=== PATIENT | male | born 1970 | race Caucasian/White ===

== ENCOUNTER 2023-10-27 14:26 | Outpatient (OUT) | payer OTHER, SELFPAY ==
--- NOTE | 2023-10-27 14:31 | ECG_ITS ---
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
--- NOTE | 2023-10-27 15:05 | P.GSHP_ITS ---
History of Present Illness History of Present Illness Chief complaint: hematuria, bladder stone Narrative: Patient present for preadmission testing and coming by his . The patient states he had hematuria on a urine screen for work. He states he has a history of kidney stones. The patient reports he had a cystoscopy done in the office and he had intolerable pain with the procedure. He denies any urinary symptoms at this time. Review of Systems ROS Narrative REVIEW OF SYSTEMS: Negative except as stated in HPI, ten or more systems reviewed. Constitutional: No fever , chills, weakness ENT: No sore throat or epistaxis Cardiovascular: No edema, chest pain, palpitations, or activity intolerance Respiratory: No shortness of breath, cough, or wheezing Musculoskeletal: No joint pain or swelling Gastrointestinal: No abdominal pain, constipation, diarrhea, or vomiting Neurological: No numbness, tingling, weakness, or headache Psychiatric: No mood changes PFSH PFS Medical History (Updated 10/27/23 @ 14:50 by Sanjuana Allison NP) Bladder stone ?N21.0 - Calculus in bladder (ICD-10) Depression ?F32.A - Depression, unspecified (ICD-10) Diabetes ?E11.9 - Type 2 diabetes mellitus without complications (ICD-10) Hematuria ?R31.9 - Hematuria, unspecified (ICD-10) High cholesterol ?E78.00 - Pure hypercholesterolemia, unspecified (ICD-10) Hydronephrosis ?N13.30 - Unspecified hydronephrosis (ICD-10) Hydroureter ?N13.4 - Hydroureter (ICD-10) Hyperlipidemia ?E78.5 - Hyperlipidemia, unspecified (ICD-10) Kidney stones ?N20.0 - Calculus of kidney (ICD-10) Renal cyst ?N28.1 - Cyst of kidney, acquired (ICD-10) S/P extracorporeal shock wave therapy ?Z98.890 - Other specified postprocedural states (ICD-10) Sleep apnea ?G47.30 - Sleep apnea, unspecified (ICD-10) 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 - Complete traumatic metacarpophalangeal amputation of unspecified finger, initial encounter (ICD-10) Surgical History (Updated 10/27/23 @ 14:19 by Sanjuana Allison NP) H/O eye surgery ?Z98.890 - Other specified postprocedural states (ICD-10) H/O hand surgery ?Z98.890 - Other specified postprocedural states (ICD-10) H/O knee surgery ?Z98.890 - Other specified postprocedural states (ICD-10) H/O wisdom tooth extraction ?K08.409 - Partial loss of teeth, unspecified cause, unspecified class (ICD- 10) Family History (Updated 10/27/23 @ 14:50 by Sanjuana Allison NP) Other Family history of myocardial infarction Social History (Updated 10/27/23 @ 14:46 by Sanjuana Allison NP) Within the past year, how often did you have a drink containing alcohol: 2-4 times a month Smoking status: Former smoker Do you use any of these nicotine containing products: smokeless tobacco Smokeless tobacco user: chewing tobacco Non-prescribed substance use: denies use 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 Highest level of school completed/degree received: high school graduate Meds Home Medications and Allergies Home Medications Medication Instructions Recorded Confirmed Type atorvastatin 20 mg tablet 20 mg PO DAILY 10/27/23 10/27/23 History bupropion HCl 150 mg 24 hr tablet, 150 mg PO DAILY 10/27/23 10/27/23 History extended release citalopram 40 mg tablet (Celexa) 40 mg PO DAILY 10/27/23 10/27/23 History coenzyme Q10 10 mg capsule (Co 10 mg PO TID 10/27/23 10/27/23 History Q-10) fenofibrate 120 mg tablet 120 mg PO DAILY 10/27/23 10/27/23 History multivitamin (Daily Multi-Vitamin 1 tab PO DAILY 10/27/23 10/27/23 History tablet) omega-3 fatty acids 500 mg PO DAILY 10/27/23 10/27/23 History Allergies Allergy/AdvReac Type Severity Reaction Status Date / Time No Known Drug Allergies Allergy Verified 10/27/23 14:42 Exam Narrative Exam Narrative: Constitutional: Awake, alert, comfortable, well-appearing, nontoxic, interactive, vital signs as charted Head: Normocephalic, atraumatic Neck: Supple, normal appearance, normal range of motion, no meningeal signs, no lymphadenopathy Respiratory: No respiratory distress, breath sounds clear Cardiovascular: Regular rate and rhythm, strong and regular heart tones Abdomen: Nontender, normal bowel sounds, soft, no CVA tenderness Musculoskeletal: Normal gait, no swelling or edema Skin: No rashes or induration, no lesions, only visible skin inspected Neuro: No neurological deficits, normal sensation Psychiatric: Oriented ?3, normal affect Assessment and Plan Assessment and Plan (1) Bladder stone: (2) Hematuria: Plan Cystoscopy, litholapaxy, shock pulse, possible TURBT scheduled with Dr. Scanlon 11/03/2023.
[2023-10-27 15:18] LABS: Basophils Percent Auto 0.8 % (0.2-2.0); Eosinophils Absolute Auto 0.2 10^3/uL (0.0-0.7); Hematocrit 40.9 % (42.0-54.0); Hemoglobin 13.7 g/dL (14.0-18.0); Lymphocytes Absolute Auto 2.1 10^3/uL (1.2-3.8); Lymphocytes Percent Auto 42.5 % (20.5-60.0); Mean Corpuscular HGB Conc 33.5 g/dL (29.9-35.2); Mean Corpuscular Hemoglobin 28.1 pg (25.9-34.0); Mean Corpuscular Volume 83.8 fL (80.0-94.0); Mean Platelet Volume 10.4 fL (9.5-13.5); Monocytes Absolute Auto 0.5 10^3/uL (0.3-0.8); Monocytes Percent Auto 9.4 % (1.7-12.0); Neutrophils Absolute Auto 2.2 10^3/uL (1.4-6.5); Neutrophils Percent Auto 44.3 % (43.0-75.0); Platelet Count 251 10^3/uL (150-450); Red Blood Count 4.88 10^6/uL (4.70-6.10); Red Cell Distribution Width 12.5 % (11.0-15.0)
[2023-10-27 15:38] LABS: Anion Gap 12.1; BUN Creatinine Ratio 14.8; Calcium 9.3 mg/dL (8.5-10.1); Carbon Dioxide 28.1 mmol/L (21.0-32.0); Chloride 105 mmol/L (98-107); Estimated GFR (African America >60 (>=60); Estimated GFR (Non-African Ame >60 (>=60); Glucose 123 mg/dL (74-106); Partial Thromboplastin Time 25.4 sec (22.3-36.2); Potassium 4.2 mmol/L (3.5-5.1); Prothrombin Time 10.6 sec (9.0-11.6); Sodium 141 mmol/L (136-145)
== END 2023-10-27 14:27 | disposition home or self-care (01) ==
PROVIDERS: PCP Urology; Visit Provider Urology
DX: Z01.810 Encounter for preprocedural cardiovascular examination (principal); Z01.812 Encounter for preprocedural laboratory examination; R31.9 Hematuria, unspecified; N21.0 Calculus in bladder
CPT/HCPCS: 80048; 85025; 85610; 85730; 93005; G0463

== ENCOUNTER 2023-11-03 08:36 | Day surgery (SDC) | payer OTHER, SELFPAY ==
[2023-10-27 15:01] VITALS: BP 131/76; PULSE 87; RESP 18; TEMP 36.6; O2SAT 98; BMI 31.7
[2023-11-03] VITALS (7 sets, daily range): BP systolic 131–141; BP diastolic 74–91; PULSE 70–86; RESP 12–18; TEMP 36.1; O2SAT 93–97; BMI 31.4
--- NOTE | 2023-11-03 | FL_ITS ---
[address] [address] Patient Name: BOBBI MUELLER MRN: [id number] date: 1970 Sex: M Assigned Patient Location: [facility] Current Patient Location: Accession/Order Number: [id number] Exam Date: 11/03/2023 10:55 Report Date: 11/07/2023 09:19 At the request of: LUI STEVENSON Procedure: FL fluoroscopy <1hr NON-READ EXAM: FL fluoroscopy <1hr NON-READ HISTORY: Rt Bladder Stone TECHNIQUE: FINDINGS: Please see Operative Report. Electronically authenticated by: RADIOLOGIST NO Date: 11/07/2023 09:19
[2023-11-03] MEDS: LACTATED RINGER'S SOLUTION 1,000 ML 50 ML IV (09:07)
[2023-11-03] MEDS: CEFAZOLIN SODIUM/DEXTROSE,ISO 1 GM/50 ML IV.SOLN IV (10:10)
--- NOTE | 2023-11-03 11:38 | PM.URSON ---
Urology Surgery Operative Note Operative Note Procedure Date: 11/03/23 Time Out Performed: yes Pre-op Diagnosis: #1. Bladder stone. #2. Gross hematuria. #3. Right nephrolithiasis Post-op Diagnosis: same as pre-op Procedures performed: #1. Urethral meatal dilation with Violeta sounds to 24 [place]. #2. Cystoscopy. #3. Cystolitholapaxy using the Thulium laser. #4. Right rigid ureteral dilation. #5. Right ureteroscopy. #6. Placement of 6 [place] variable length right ureteral stent Anesthesia: GREGG Primary Surgeon: Negro Scanlon Complications: none Estimated blood loss (mL): 10 Findings: #1. Large bladder stone. #2. No bladder tumors. #3. 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 Drains: 6 [place] variable length right ureteral stent Detailed description of Procedure: The patient was brought to the operating room and placed on the operating room table in the supine position. SCDs were placed on the lower extremities and turned on and functioning during the entire case. Timeout was done by all parties in the room. We all agreed upon the patient's identification and the planned procedures for this patient. Genn. anesthesia was then administered. The patient was then repositioned into the modified dorsal lithotomy position. All pressure points were satisfactorily padded. Genitalia were sterilely prepped and draped in usual fashion.I started by attempting to pass a 22 [place] Olympus cystoscope per urethra but was unable due to the meatal stenosis. I then used [place] sounds and dilated him up to 24 [place]. I then passed the cystoscope. The anterior urethra was normal. The prostatic urethra showed a high median lobe. There was lateral lobe hypertrophy. Panendoscopy in the bladder showed a large bladder stone on the floor. No evidence of any bladder tumors were noted. I then passed the 1000 ? thulium laser fiber through the scope. I then made contact with the stone and began doing laser lithotripsy at 20 and 30 then 50 and ultimately 60 W continuously. I used the dusting modality for the majority of the stone. Once I had the stone down to very tiny pieces I then stopped lasering and used the ellick evacuator to get all the pieces out. Upon completion of the cystolitholapaxy, there was no evidence of bleeding from the bladder. At this time I then passed a wire through the scope and guided up the right ureter and into the kidney. I then used an 8 and 10 [place] rigid dilator to dilate the distal ureter which was stenosed. I then removed the scope and passed an 10/10 ureteral access sheath over the wire and this kept buckling at the distal ureter region. Ultimately I had to swap out wires to a sensor wire and then I was able to get the access sheath over this and up to the L5 level. The stylette and wire were then removed. I then passed a flexible ureteroscope through the access sheath and into the ureter. I then slowly ascended up the ureter and as I arrived at the L3 region one could see a narrowing although it was not a scarred stricture. Numerous manipulation attempts were done but these were all to no avail. I was not able to get the scope through this narrowed area safely. I therefore removed the scope and then removed the access sheath. I then backloaded the cystoscope over the wire and passed it into the bladder. I then slid a 6 [place] variable length ureteral stent over the wire up into the kidney. The wire was removed and there were good curls in the kidney and in the bladder. The bladder was drained of its contents and the scope was then removed. The anesthetic was then reversed. [facility]U in stable condition. Our plan will be to bring him back in a few weeks and then attempt to get the flexible ureteroscope all the way up the ureter and into the kidney so we can do laser lithotripsy of the right renal stones.
[2023-11-03] MEDS: SOLIFENACIN SUCCINATE 10 MG TABLET PO (12:09)
[2023-11-03] MEDS: ACETAMINOPHEN 325 MG TABLET 650 MG PO (12:35)
--- NOTE | 2023-11-03 12:37 | PC.NURSE ---
pATIENT COMPLAINING OF HEADACHE. TYLENOL GIVEN 650 MG FOR A PAIN OF 4
[2023-11-15 03:07] LABS: Calcium Oxalate Dihydrate 90 % (.); Calcium Oxalate Monohydrate 5 % (.); Calcium phosphate (hydroxyl) 5 % (.); Size 5x5 mm (.)
== END 2023-11-03 12:50 | disposition home or self-care (01) ==
PROVIDERS: PCP Urology; Visit Provider Urology
PROC: (CPT 910; principal; 2023-11-03 09:45)
DX: N21.0 Calculus in bladder (principal); R31.0 Gross hematuria; G47.30 Sleep apnea, unspecified; F32.A Depression, unspecified; E11.9 Type 2 diabetes mellitus without complications; N20.0 Calculus of kidney; Q62.10 Congenital occlusion of ureter, unspecified; Z87.891 Personal history of nicotine dependence; E78.2 Mixed hyperlipidemia; N28.1 Cyst of kidney, acquired; Z87.442 Personal history of urinary calculi; R31.21 Asymptomatic microscopic hematuria
CPT/HCPCS: 52318; 52332; 52351; 36415; 76000; 82365; 84703; 99999; J2704

== ENCOUNTER 2023-12-02 13:23 | Outpatient (OUT) | payer OTHER, SELFPAY ==
--- OUTSIDE RECORDS SUMMARY | 2023-12-02 13:29 | XMS_ITS | CCD ---
Author Name Unknown Address [address] [place] [address] Organization [facility] Care Team Providers Care Fitness Plan Coordinator Name Role Phone Henfling Frieda LIMON Primary Care Provider [phone] KISHA, DR PINO Primary Care Unavailable ELVA, DR POE Admitting Unavailable ELVA, DR POE Consulting Unavailable ELVA, DR POE Attending Unavailable BRINA, DR EMMA Vang Consulting Unavailable Henjayleneing Frieda LIMON Primary Care Provider [phone] Henjayleneing Frieda LIMON Primary Care Provider [phone] Mckinley John Unavailable LON, FRIEDA N Primary Care Physician [phone] DEJA VEE Attending Unavailable HENFLING, FRIEDA N Referring Unavailable HENFLING, FRIEDA N Primary Care Unavailable HENFLING, FRIEDA N Referring Unavailable HENFLING, FRIEDA N Primary Care Unavailable HENFLING, FRIEDA N Attending Unavailable HENFLING, FRIEDA N Referring Unavailable HENFLING, FRIEDA N Primary Care Unavailable HENFLING, FRIEDA N Attending Unavailable HENFLING, FRIEDA N Primary Care Unavailable DEJA VEE Referring Unavailable HENFLING, FRIEDA N Primary Care Unavailable Henfling, BRAXTON Langston Primary Care Provider JORGE Allison Attending Provider Unavail able BRAXTON Forrest N Primary Care Provider [phone] MD Negro Scanlon Attending Provider Sanjuana Allison Attending Unavailable Sanjuana Allison Admitting Unavailable Henfling, Frieda N Primary Care Unavailable Scanlon, Negro Admitting Unavailable Henfling, Frieda N Primary Care Unavailable Scanlon, Negro Attending Unavailable SCANLON, Negro R Referring Unavailable HENFLING, FRIEDA Primary Care Unavailable SCANLON, Negro R Attending Unavailable SCANLON, Negro R Attending Unavailable HENFLING, FRIEDA Primary Care Unavailable SCANLON, Negro R Attending Unavailable HENFLING, FRIEDA Primary Care Unavailable SCANLON, Negro R Attending Unavailable SCANLON, Negro R Admitting Unavailable HENFLING, FRIEDA Primary Care Unavailable SCANLON, Negro R Attending Unavailable HENFLING, FRIEDA Primary Care Unavailable SCANLON, Negro R Attending Unavailable HENFLING, FRIEDA Primary Care Unavailable SCANLON, Negro R Attending Unavailable HENFLING, FRIEDA Primary Care Unavailable Allergies Allergy Classification Reported Allergen(s) Allergy Type Date of Onset Reaction(s) Facility (1 source) No Known Medication Allergies; Translations: [No Known Medication Allergies] Propensity to adverse reactions (disorder) [facility] Repository Medications Current Medications Medication Drug Class(es) Dates Sig (Normalized) Sig (Original) acetaminophen 325 mg / HYDROcodone bitartrate 5 mg oral tablet (4 sources) Opioid Agonist Start: 05-08-2022 take 1 tablet by mouth twice daily Hydrocodone-Aceta minophen Active 1 TAB PO Twice daily 6 3 May 08, 2022 Start: 01-13-2019 End: 01-15-2019 take 1 tablet by mouth every four to six hours Hydrocodone-Acetaminophen (Lagrange) 5-325 mg Tablet Discontinued 1 TAB PO EVERY 4-6 HOURS 7 2 January 13, 2019 January 15, 2019 12:01am atorvastatin 20 mg oral tablet (20 sources) HMG-CoA Reductase Inhibitor Start: 01-13-2019 End: 06-14-2024 take 20 mg by mouth once daily Atorvastatin Active 20 MG PO Daily January 13, 2019 12:00am Comment on above: Take 1 tablet by joshua th once daily. citalopram 40 mg oral tablet (20 sources) Serotonin Reuptake Inhibitor Start: 01-13-2019 End: 06-15-2023 take 40 mg by mouth once daily Citalopram Active 40 MG PO Daily January 13, 2019 12:00am take 1 tablet by joshua th every twenty-four hours Citalopram Hydrobromide 20 MG 1 tablet Orally Once a day for 30 day(s) Active Comment on above: Take 1 tablet by joshua th once daily. cyclobenzaprine hydrochloride 10 mg oral tablet (6 sources) Muscle Relaxant Start: 05-17-20 take 1 tablet by mouth every eight hours as needed Cyclobenzaprine HCl 10 MG 1 tablet as needed Orally every 8 hours as needed for 5 days Apr, Active cyclobenzaprine (FLEXERIL) 10 mg tablet Take by mouth three times daily. 0 Active Comment on above: Take by mouth three times daily. fenofibrate 145 mg oral tablet (20 sources) Peroxisome Proliferator Receptor alpha Agonist Start: 01-13-20 End: 06-15-20 take 145 mg by mouth once daily Fenofibrate Nanocrystallized Active 145 MG PO Daily January 13, 2019 12:00am Comment on above: Take 1 tablet by joshua th once daily. TAKE 1 TABLET DAILY Multi Vitamin+ (2 sources) Start: 05-13-20 Multi Vitamin+ Refill(s) 0 Start Date: 05/13/22 Status: Ordered Jybcqtwz-Myz-Awbzh- Vit K-Lycop (One-A-Day Men's Multivitamin) 400-20-300 mcg Tablet (2 sources) Start: 05-08-20 take 1 tablet by mouth once daily Pjzpciiv-Eem-Zipfs-Vit K-Lycop (One-A-Day Men's Multivitamin) 400-20-300 mcg Tablet Active 1 TAB PO Daily May 07, 2022 11:00pm naproxen 500 mg oral tablet (2 sources) Nonsteroidal Anti-inflammatory Drug Start: 05-08-20 take 1 tablet by mouth twice daily Naproxen (Naprosyn) 500 mg tablet Active 500 MG PO Twice daily 14 7 May 07, 2022 11:00pm [place] 4-Gqc-Mve-Fish Oil (Fish Oil) 1,000 mg (120 mg-180 mg) Capsule (2 sources) Start: 05-08-20 take 1 capsule by mouth twice daily [place] 8-Dtz-Bcu-Fish Oil (Fish Oil) 1,000 mg (120 mg-180 mg) Capsule Active 1 CAP PO Twice daily May 07, 2022 11:00pm [place]-3 (2 sources) Start: 05-13-20 [place]-3 Refill(s) 0 Start Date: 05/13/22 Status: Ordered ondansetron 4 mg oral tablet (4 sources) Serotonin-3 Receptor Antagonist Start: 05-08-20 take 4 mg by mouth every eight hours Ondansetron Hcl Active 4 MG PO Q8H 15 May 08, 2022 6:52am Start: 01-13-2019 End: 05-08-2022 Ondansetron Discontinued 4 M G PO every 6 to 8 hours January 13, 2019 12:00am May 08, 2022 6:22am pravastatin sodium 10 mg oral tablet (2 sources) HMG-CoA Reductase Inhibitor take 1 tablet by mouth once daily Pravastatin 10 mg one tab orally daily Active predniSONE 20 mg oral tablet (4 sources) Start: 05-17-2023 take 1 tablet by mouth every twelve hours predniSONE 20 MG 1 tablet Orally twice a day for 6 days Apr, Active End: 06-15-2023 take 2 tablets by mouth twice daily predniSONE (DELTASONE) 10 mg tablet Take 20 mg by mouth twice daily. 0 06/15/2023 Discontinued Comment on above: Take 20 mg by mouth twice daily. tamsulosin hydrochloride 0.4 mg oral capsule (2 sources) alpha-Adrenergic Kimberly Start: 05-08-2022 take 1 capsule by mouth once daily Tamsulosin (Flomax) 0.4 mg capsule Active 0.4 MG PO Daily May 07, 2022 11:00pm Vit W-Qvllkda-Vkze-Rutin-Hb 196 (Bioflex) 834-91-31-40 mg Tablet (2 sources) Start: 01-13-2019 take 1 tablet by mouth once daily Vit D-Zgewpby-Bhpc-Yanci n-Hb196 (Bioflex) 217-71-71-40 mg Tablet Active 1 TAB PO Daily January 13, 2019 12:00am Completed/Discontinued Medications Medication Drug Class(es) Dates Sig (Normalized) Sig (Original) 24 hr buPROPion hydrochloride 150 mg extended release oral tablet (20 sources) Aminoketone Start: 05-13-2022 take 1 mg by mouth twice daily buPROPion 150 mg ER Tab mg tab(s), Oral, BID, Refills(s) 0 Start Date: 05/13/22 Status: Ordered Start: 01-13-2019 End: 06-15-2023 take 150 mg by mouth once daily Bupropion Hcl Active 1 50 MG PO Daily January 13, 2019 12:00am Comment on above: TAKE 1 TABLET EVERY MORNING Take 1 tablet by joshua th every morning. ciprofloxacin 500 mg oral tablet (2 sources) Quinolone Antimicrobial Start: 2022 Cipro 500 mg Tab 500 mg = 1 tab(s), Oral, As Directed, Patient to take 1 tab the day before procedure and the 2nd tab the day of procedure once completed, # 2 tab(s), Refills(s) 0, Pharmacy: [id number], 188, cm, 08/22/23 15:16:00 EDT, Height/Length Dosing,... Start Date: 08/22/23 Status: Ordered doxycycline monohydrate 100 mg oral capsule (2 sources) Tetracycline-class Drug Start: 2018 End: 2021 take 100 mg by mouth twice daily Doxycycline Monohydrate Discontinued 100 MG PO Twice daily January 13, 2019 12:00am May 08, 2022 6:21am icosapent ethyl 1000 mg oral capsule (2 sources) Start: 2018 End: 2021 Icosapent Ethyl (Vascepa) 1 gram capsule Discontinued 2 GM PO Twice daily January 13, 2019 12:00am May 08, 2022 6:22am iv contrast (will be provided with radiology test) (1 source) Start: 2022 End: 2022 iv contrast (will be provided with radiology test) CT Urogram WO/W Inject, intravenously, once for 1 dose.No IV access, insert saline lock prior to the beginning of sedation, infusion, injection of imaging exam. Discontinue saline lock post exam. If Pt. has a central line or IVAD, may access for administration according to line specific nursing protocol. Once exam is complete flush line and de-access according to line specific nursing protocol in the CT contrast administration guidelines link. 1 Each 0 06/16/2023 06/17/2023 Comment on above: CT Urogram WO/W Inje ct, intravenously, once for 1 dose.No IV access, insert saline lock prior to the beginning of sedation, infusion, injection of imaging exam. Discontinue saline lock post exam. If Pt. has a central line or IVAD, may access for administration according to line specific nursing protocol. Once exam is complete flush line and de-access according to line specific nursing protocol in the CT contrast administration guidelines link. aatvgqbt-dvl-LJ-K-ly copene 400-20-370 mcg tab (14 sources) nttfgddl-xxd-XS- K-ly copene 400-20-370 mcg tab Take by mouth once daily. 0 Active Comment on above: Take by mouth once d aily. Qbjdefhh-Ctv-Ezrwgie Fumarate (Multi Vitamin) 9 mg iron/15 mL Liquid (2 sources) Start: 2018 End: 2021 take 1 tablet by mouth once daily Qmpfagxf-Xcc-Sitrbaw Fumarate (Multi Vitamin) 9 mg iron/15 mL Liquid Discontinued 1 TAB PO Daily January 13, 2019 12:00am May 08, 2022 6:21am omega-3 fatty acids 1,000 mg cap (14 sources) Start: 2019 take 2 capsules by mouth once daily omega-3 fatty acids 1,000 mg cap Take 2 capsules by mouth once daily. 0 03/24/2020 Active Comment on above: Take 2 capsules by m outh once daily. 1000 ml sodium chloride 9 mg/ml injection (1 source) Start: 2022 End: 2022 inject 1 dose intravenously once 0.9 % sodium chloride (NACL 0.9%) infusion Inject 5-30 mL/hr intravenously one time only for 1 dose. Administer at rate defined per CT contrast administration specifications. To be provided with radiology test. 1 Each 0 06/16/2023 06/16/2023 Comment on above: Inject 5-30 mL/hr in travenously one time only for 1 dose. Administer at rate defined per CT contrast administration specifications. To be provided with radiology test. vit L-vkxlwtb-qztv-rutin -hb196 (BIOFLEX) 380-24-62-40 mg tab (7 sources) vit H-zosnhcl-nmjd-rutin -hb196 (BIOFLEX) 797-78-23-40 mg tab Take by mouth once daily. 0 Active Comment on above: Take by mouth once d aily. vit E-aazvzyf-cwrc-rutin -hb196 781-39-17-40 mg tab (7 sources) vit N-rcvauqm-uznj-rutin -hb196 529-74-88-40 mg tab Take by mouth once daily. 0 Active Comment on above: Take by mouth once d aily. Problems Problem Classification Problem Date Documented Date Episodic/Chronic Calculus of urinary tract (20 sources) Calculus of kidney; Translations: [Calculus in urethra] Onset: 05-14-2022 Episodic Diabetes mellitus without complication (9 sources) Type 2 diabetes mellitus without complication; Translations: [Type 2 diabetes mellitus without complications] Onset: 09-13-2022 Chronic Diabetes mellitus without complication (1 source) Impaired fasting glycemia; Translations: [Impaired fasting glucose] Episodic Disorders of lipid metabolism (18 sources) Mixed hyperlipidemia; Translations: [Mixed hyperlipidemia] Onset: 12-30-2016 12-30-2016 Chronic Genitourinary symptoms and ill-defined conditions (5 sources) Poor stream of urine; Translations: [Poor urinary stream] Onset: 06-15-2023 Episodic Immunizations and screening for infectious disease (1 source) Vaccination needed; Translations: [Encounter for immunization] 06-15-2023 Episodic Mood disorders (16 sources) Depressive disorder; Translations: [Depression] Onset: 05-11-2018 05-11-2018 Chronic Other diseases of kidney and ureters (1 source) Acquired renal cyst without neoplastic change; Translations: [Cyst of kidney, acquired] Onset: 08-22-2023 Episodic Other diseases of kidney and ureters (2 sources) Cyst of kidney 08-22-2023 Episodic Other diseases of kidney and ureters (6 sources) Hydronephrosis; Translations: [Unspecified hydronephrosis] 05-13-2022 Episodic Other diseases of kidney and ureters (2 sources) Hydroureter 05-13-2022 Episodic Other screening for suspected conditions (not mental disorders or infectious disease) (1 source) Encounter for screening for malignant neoplasm of prostate; Translations: [Screening for malignant neoplasm done] Onset: 08-22-2023 Episodic Residual codes; unclassified (16 sources) Obstructive sleep apnea syndrome; Translations: [Obstructive sleep apnea (adult) (pediatric)] Onset: 03-24-2020 03-24-2020 Chronic Spondylosis; intervertebral disc disorders; other back problems (4 sources) Sciatica; Translations: [Sciatica, right side] Episodic Sprains and strains (3 sources) Sprain of ankle; Translations: [Sprain of ankle, left] Episodic Unclassified (2 sources) Asymptomatic microscopic hematuria 09-25-2023 Unclassified (2 sources) Patient encounter status 08-22-2023 Unclassified (1 source) Encounter for other preprocedural examination; Translations: [Encounter for other preprocedural examination] Onset: 10-25-2023 Unclassified (1 source) Asymptomatic microscopic hematuria; Translations: [Asymptomatic microscopic hematuria] Onset: 09-05-2023 Results Test Name Value Interpretation Reference Range Facility Consent for Procedure/Surger yon 11-25-2023 Consent for Procedure/Surgery [id number]#1.00TIFF Normal [facility] Lab Reportson 11-22-2023 Lab Reports [id number]#1.00TIFF Normal [facility] RAD - MISCon 11-08-2023 RAD - MISC [id number]#1.00TIFF Normal [facility] Operative Reporton Operative Report [id number]#1.00TIFF Normal [facility] ECG 12-Leadon 10-28-2023 ECG 12-Lead [id number]#1.00TIFF Normal [facility] Lab Reportson 10-28-2023 Lab Reports [id number]#1.00TIFF Normal [facility] COVID-19 FRon 10-25-2023 SARS-CoV-2 (COVID-19) RNA RUDY+probe Ql (Unsp spec) Negative Normal Negative [facility] Comment on above: Order Comment: Healt hcare Worker?: N Result Comment: Testing for SARS-CoV-2 by RT-PCR This test was developed and its performance characteristics determined by [employer]) and validated at the [facility]. This test has not been FDA cleared or approved. This test has been authorized by FDA under an Emergency Use Authorization (EUA). This test has been validated in accordance with the FDA's Guidance Document (Policy for Diagnostics Testing in Laboratories Certified to Perform High Complexity Testing under CLIA prior to Emergency Use Authorization for Coronavirus Disease-2019 during the Public Health Emergency) issued on February 28, 2020. This test is only authorized for the duration of time the declaration that circumstances exist justifying the authorization of the emergency use of in vitro diagnostic tests for detection of SARS-CoV-2 virus and/or diagnosis of COVID-19 infection under section 564(b)(1) of the Act, 21 U.S.C. 360bbb-3(b)(1), unless the authorization is terminated or revoked sooner. PERFORMED BY: [place] [address] PATHOLOGIST [employer] MARSHAL EDWARD M.D. Performed By: #### C OVID 19 [facility] [place] #### [address] COVID-19 Positive/NegativeOr dered By: Sanjuana Allison on 10-25-2023 SARS-CoV-2 (COVID-19) N gene RUDY+probe Ql (Resp) Negative Negative [facility] Comment on above: Testing for SARS-CoV -2 by RT-PCRThis test was developed and its performance characteristics determined by [employer] ([employer]) and validated at the [facility]. This test has not been FDA cleared or approved. This test has been authorized by FDA under an Emergency Use Authorization (EUA). This test has been validated in accordance with the FDA's Guidance Document (Policy for Diagnostics Testing in Laboratories Certified to Perform High Complexity Testing under CLIA prior to Emergency Use Authorization for Coronavirus Disease-2019 during the Public Health Emergency) issued on February 28, 2020. This test is only authorized for the duration of time the declaration that circumstances exist justifying the authorization of the emergency use of in vitro diagnostic tests for detection of SARS-CoV-2 virus and/or diagnosis of COVID-19 infection under section 564(b)(1) of the Act, 21 U.S.C. 360bbb-3(b)(1), unless the authorization is terminated or revoked sooner. Laboratory - Microbiology an d Antimicrobial susceptibilityOrdered By: Sanjuana Allison on 10-25-2023 SARS-CoV-2 (COVID-19) RNA RUDY+probe Ql (Unsp spec) N/A [facility] Consent for Procedure/Surger yon 09-22-2023 Consent for Procedure/Surgery [id number]#1.00TIFF Normal [facility] Operative Reporton Operative Report [id number]#1.00TIFF Normal [facility] RAD - CT Reporton 09-07-2023 RAD - CT Report [id number]#1.00TIFF Normal [facility] CT abdomen pelvis wo/w conon 09-05-2023 CT abdomen pelvis wo/w con [facility] [place] [address] CT Scan Report Signed Patient: Bobbi Garrison MR#: [id number] : 1970 Acct:[id number] Age/Sex: 53 / M ADM Date: 08/22/23 Loc: CT Room: Type: PRE CLI Attending Dr: Negro Scanlon MD Copies to: Negro Scanlon MD Ordering Provider: Negro Scanlon MD Date of Service: 09/05/23 CT/CT abdomen pelvis wo/w con: R31.21 CT ABDOMEN AND PELVIS WITH AND WITHOUT INTRAVENOUS CONTRAST: CLINICAL HISTORY: Microhematuria. COMPARISON: CT abdomen and pelvis 05/08/2022 TECHNIQUE: Spiral images were obtained through the abdomen and pelvis before and after the administration of intravenous contrast. This CT exam was performed using one or more following dose reduction techniques: Automated exposure control, adjustment of the mA and/or kV according to patient size, or use of iterative reconstruction technique. FINDINGS: Lung Bases: [No acute findings.] Organs:Hepatic steatosis. Gallbladder spleen pancreas and adrenal glands all appear unremarkable. Subcentimeter low attenuating lesions right kidney, too small for accurate characterization. Right nephrolithiasis, largest stone measuring 3 mm. Left kidney appears unremarkable. No enhancing renal or collecting system mass. No obstructive uropathy. Abdominal aorta appears normal in caliber.[ GI: Stomach is grossly unremarkable. Small bowel appears nondilated. Colonic diverticulosis.[Appendix is normal. Pelvis:[Urinary bladder calculus measuring 15 mm in greatest axial dimension. No urinary bladder mass. Prostatomegaly. Left-sided fat filled inguinal hernia.] Peritoneum/Retroperitoneum :No free air, free fluid or lymphadenopathy.[ Abd wall/Bones:Abdominal wall demonstrates no acute findings. Osseous structures demonstrate degenerative change.[ CT/CT abdomen pelvis wo/w con IMPRESSION: Right nephrolithiasis, largest measuring 3 mm. Urinary bladder calculus measuring 15 mm. No obstructive uropathy or enhancing mass. Impression dictated by: Beck Crump Jr., D.OMargie09/05/2023 6:01 PM Dictation Location: [facility]-15 Transcribed By: SHEREEN 09/05/231800 Dictated By: Beck Crump Jr, DO 09/05/23 1756 Signed By: 09/05/231800 [facility] Leslye 08-30-2023 CNPN Telephone ([employer]) -- BOBBI GARRISON ([id number]) 1970 M Date Time Provider Department 08/30/23 [facility] [place] [facility] During your visit today, we recorded the following information about you: Sherman Aggarwal MA 08/30/2023 9:32 AM Signed Received Urine reports from [facility]. Placed in pcp inbox for review. Sherman Aggarwal MA August 30, 2023 9:32 AM Allergies As of Date: 08/30/2023 (No Known Allergies) Date Reviewed: 06/15/2023 Reviewed by: Stacey Cruz MA - Fully Assessed Reason for Visit: Results [95] Cmt: Urine cytology report Prescriptions as of 08/30/2023 - fenofibrate nanocrystallized (TRICOR) 145 mg tablet Take 1 tablet by mouth once daily. - atorvastatin (LIPITOR) 20 mg tablet Take 1 tablet by mouth once daily. - buPROPion XL (WELLBUTRIN XL) 150 mg 24 hr tablet Take 1 tablet by mouth every morning. - citalopram (CELEXA) 40 mg tablet Take 1 tablet by mouth once daily. - cyclobenzaprine (FLEXERIL) 10 mg tablet Take by mouth three times daily. - omega-3 fatty acids 1,000 mg cap Take 2 capsules by mouth once daily. - lorxhzao-agr-HR-K-lycopene 400-20-370 mcg tab Take by mouth once daily. - vit X-isindoc-udwr-rutin-hb196 543-79-22-40 mg tab Take by mouth once daily. Problem List As Of Date 08/30/2023 Noted Resolved Mixed hyperlipidemia [E78.2] 12/30/2016 Depression [F32.A] 05/11/2018 ISAK (obstructive sleep apnea) [G47.33] 03/24/2020 Encounter Status:Closed by SHERMAN AGGARWAL on 08/30/23 Normal [facility] Urine Cytology ( Labs)on Urine Cytology Diagnosis Info Invalid Interpretation Code [facility] Comment on above: Result Comment: A:Ur ine,Urine:Voided Interpretation - MicroScopic Description - Adequacy - Gross Description Site ID:A color Yellow fixative Alcohol Specimen designated Urine received in alcohol preservative and labeled with the patient?s name, consists of 110ml clear yellow fluid. Electronically signed by : on: 08/29/2023 14:28:36 Performed By: #### 1 [id number] ####[facility] [address] [place] [address] Pre-Certification Formon Pre-Certification Form [id number]:127 Normal [facility] Consent for Procedure/Surger yon 08-25-2023 Consent for Procedure/Surgery [id number]#[id number]:127 Normal [facility] Physician Referralon 023 Physician Referral [id number]#[id number]:127 Normal [facility] Ambulatory Visit Summaryon 0 08-22-2023 Ambulatory Visit Summary BOBBI GARRISON :1970 Visit Date:08/22/2023 Ambulatory Visit Instructions Your Diagnosis Kidney stones Asymptomatic microscopic hematuria Screening PSA (prostate specific antigen) Tests Performed Urnls Dip Stick Auto w/o Microscopy POC [address] CT Urogram -- Results Pending -- Please visit your patient portal for your results or contact your primary care physician. Your Care Team Attending Physician - Negro SCANLON MD Primary Care Physician - FRIEDA CARMONA This Is Your Medications List Contact prescribing physician if questions or concerns atorvastatin (atorvastatin 20 mg Tab) buPROPion (buPROPion 150 mg ER Tab) citalopram (citalopram 40 mg Tab) fenofibrate (fenofibrate 145 mg Tab) multivitamin (Multi Vitamin+) omega-3 polyunsaturated fatty acids ([place]-3) Procedures Performed ESWL of kidney (11/04/2016), Extraction of wisdom tooth, Procedure on hand, Procedure on knee, Surgical procedure on left eye region. Discharge Vitals Heart Rate (Peripheral) 68 Respiratory Rate 16 Blood Pressure 140/73 Height 188 cm Height 74 in Weight 113.6 kg Weight 249.92 lb BMI 32.14 What to do next You Need to Schedule the Following Appointments Follow Up with ELVA RODRÍGUEZ, BECCA Garsia When: Where: [facility] [address] , [place] [address]- [phone] Medications What How Much When Instructions Unchanged atorvastatin (atorvastatin 20 mg Tab) Every day Contact prescribing physician if questions or concerns Unchanged buPROPion (buPROPion 150 mg ER Tab) 2 times a day Contact prescribing physician if questions or concerns Unchanged citalopram (citalopram 40 mg Tab) Every day Contact prescribing physician if questions or concerns Unchanged fenofibrate (fenofibrate 145 mg Tab) Every day Contact prescribing physician if questions or concerns Unchanged multivitamin (Multi Vitamin+) Contact prescribing physician if questions or concerns Unchanged omega-3 polyunsaturated fatty acids ([place]-3) Contact prescribing physician if questions or concerns Test Results Urnls Dip Stick Auto w/o Microscopy POC 58425 (08/22/2023) Bilirubin Urine Dipstick - Negative Blood Urine Dipstick - 1+ Small Glucose Urine Dipstick - Negative Ketones Urine Dipstick - Negative Leukocytes Urine Dipstick - Trace Nitrite Urine Dipstick - Negative Protein Urine Dipstick - Negative Specific [place] Urine Dipstick - 1.020 Urine Appearance Urine Dipstick - Clear Urine Color Urine Dipstick - Yellow Urobilinogen Urine Dipstick - Normal 0.2-1 EU/dl pH Urine Dipstick - 5.5 Allergies No Known Medication Allergies Problems Ongoing - Any problem that you are currently receiving treatment for. Asymptomatic microscopic hematuria Depressive disorder Hydronephrosis, right Hydroureter Kidney stones Mixed hyperlipidemia Nephrolithiasis ISAK (obstructive sleep apnea) Screening PSA (prostate specific antigen) Type 2 diabetes mellitus without complication, without long-term current use of insulin Ureteral stone Education Materials Dietary Guidelines to Help Prevent Kidney Stones Kidney stones are deposits of minerals and salts that form inside your kidneys. Your risk of developing kidney stones may be greater depending on your diet, your lifestyle, the medicines you take, and whether you have certain medical conditions. Most people can lower their chances of developing kidney stones by following the instructions below. Your dietitian may give you more specific instructions depending on your overall health and the type of kidney stones you tend to develop. What are tips for following this plan? Reading food labels ? Choose foods with no salt added or low-salt labels. Limit your salt (sodium) intake to less than 1,500 mg a day. ? Choose foods with calcium for each meal and snack. Try to eat about 300 mg of calcium at each meal. Foods that contain 200?500 mg of calcium a serving include: ? 8 oz (237 mL) of milk, umrldiq-kadaaccvzsrr-tozjh milk, and calcium-fortifiedfruit juice. Calcium-fortified means that calcium has been added to these drinks. ? 8 oz (237 mL) of kefir, yogurt, and soy yogurt. ? 4 oz (114 g) of tofu. ? 1 oz (28 g) of cheese. ? 1 cup (150 g) of dried figs. ? 1 cup (91 g) of cooked broccoli. ? One 3 oz (85 g) can of sardines or mackerel. Most people need 1,000?1,500 mg of calcium a day. Talk to your dietitian about how much calcium is recommended for you. Shopping ? Buy plenty of fresh fruits and vegetables. Most people do not need to avoid fruits and vegetables, even if these foods contain nutrients that may contribute to kidney stones. ? When shopping for convenience foods, choose: ? Whole pieces of fruit. ? Pre-made salads with dressing on the side. ? Low-fat fruit and yogurt smoothies. ? Avoid buying frozen meals or prepared deli foods. (more content not included)... Normal [facility] Patient Educationon 08-22-20 Patient Education Nephrology Dietary Guidelines to Help Prevent Kidney Stones Kidney stones are deposits of minerals and salts that form inside your kidneys. Your risk of developing kidney stones may be greater depending on your diet, your lifestyle, the medicines you take, and whether you have certain medical conditions. Most people can lower their chances of developing kidney stones by following the instructions below. Your dietitian may give you more specific instructions depending on your overall health and the type of kidney stones you tend to develop. What are tips for following this plan? Reading food labels ? Choose foods with no salt added or low-salt labels. Limit your salt (sodium) intake to less than 1,500 mg a day. ? Choose foods with calcium for each meal and snack. Try to eat about 300 mg of calcium at each meal. Foods that contain 200?500 mg of calcium a serving include: ? 8 oz (237 mL) of milk, cbitbxx-abcsufxnbsix-jdeqj milk, and calcium-fortifiedfruit juice. Calcium-fortified means that calcium has been added to these drinks. ? 8 oz (237 mL) of kefir, yogurt, and soy yogurt. ? 4 oz (114 g) of tofu. ? 1 oz (28 g) of cheese. ? 1 cup (150 g) of dried figs. ? 1 cup (91 g) of cooked broccoli. ? One 3 oz (85 g) can of sardines or mackerel. Most people need 1,000?1,500 mg of calcium a day. Talk to your dietitian about how much calcium is recommended for you. Shopping ? Buy plenty of fresh fruits and vegetables. Most people do not need to avoid fruits and vegetables, even if these foods contain nutrients that may contribute to kidney stones. ? When shopping for convenience foods, choose: ? Whole pieces of fruit. ? Pre-made salads with dressing on the side. ? Low-fat fruit and yogurt smoothies. ? Avoid buying frozen meals or prepared deli foods. These can be high in sodium. ? Look for foods with live cultures, such as yogurt and kefir. ? Choose high-fiber grains, such as whole-wheat breads, oat bran, and wheat cereals. Cooking ? Do not add salt to food when cooking. Place a salt shaker on the table and allow each person to add his or her own salt to taste. ? Use vegetable protein, such as beans, textured vegetable protein (TVP), or tofu, instead of meat in pasta, casseroles, and soups. Meal planning ? Eat less salt, if told by your dietitian. To do this: ? Avoid eating processed or pre-made food. ? Avoid eating fast food. ? Eat less animal protein, including cheese, meat, poultry, or fish, if told by your dietitian. To do this: ? Limit the number of times you have meat, poultry, fish, or cheese each week. Eat a diet free of meat at least 2 days a week. ? Eat only one serving each day of meat, poultry, fish, or seafood. ? When you prepare animal protein, cut pieces into small portion sizes. For most meat and fish, one serving is about the size of the palm of your hand. ? Eat at least five servings of fresh fruits and vegetables each day. To do this: ? Keep fruits and vegetables on hand for snacks. ? Eat one piece of fruit or a handful of berries with breakfast. ? Have a salad and fruit at lunch. ? Have two kinds of vegetables at dinner. ? Limit foods that are high in a substance called oxalate. These include: ? Spinach (cooked), rhubarb, beets, sweet potatoes, and [place]ian chard. ? Peanuts. ? Potato chips, scottish fries, and baked potatoes with skin on. ? Nuts and nut products. ? Chocolate. ? If you regularly take a diuretic medicine, make sure to eat at least 1 or 2 servings of fruits or vegetables that are high in potassium each day. These include: ? Avocado. ? Banana. ? [place], prune, carrot, or tomato juice. ? Baked potato. ? Cabbage. ? Beans and split peas. Lifestyle ? Drink enough fluid to keep your urine pale yellow. This is the most important thing you can do. Spread your fluid intake throughout the day. ? If you drink alcohol: ? Limit how much you use to: ? 0?1 drink a day for women who are not . ? 0?2 drinks a day for men. ? Be aware of how much alcohol is in your drink. In the [place] one drink equals one 12 oz bottle of beer (355 mL), one 5 oz glass of wine (148 mL), or one 1? oz glass of hard liquor (44 mL). ? Lose weight if told by your health care provider. Work with your dietitian to find an eating plan and weight loss strategies that work best for you. General information ? Talk to your health care provider and dietitian about taking daily supplements. You may be told the following depending on your health and the cause of your kidney stones: ? Not to take supplements with vitamin C. ? To take a calcium supplement. ? To take a daily probiotic supplement. ? To take other supplements such as magnesium, fish oil, or vitamin B6. ? Take atkt-dzp-kdcnbrp and prescription medicines only as told by your health care provider. These include supplements. What foods should I limit? Limit your in (more content not included)... Normal [facility] Urine Cytology ([facility])on 08-22-2023 Method of Extraction Voided Normal [facility] Comment on above: Performed By: #### 1 [id number] ####[facility] [address] [place] [id number] Number of Jars 1 Invalid Interpretation Code [facility] Comment on above: Performed By: #### 1 [id number] ####[facility] [address] [place] [address] Specimen Urine Normal [facility] Comment on above: Performed By: #### 1 [id number] ####[facility] [address] [place] [address] Type of Service Technical Only Normal [facility] Comment on above: Performed By: #### 1 [id number] ####[facility] [address] [place] [address] Leslye 06-16-2023 [facility] [place] -- BOBBI GARRISON Srinivas ([id number]) 1970 M Date Time Provider Department 06/16/23 [facility] During your visit today, we recorded the following information about you: Frieda Forrest PA-C 06/16/2023 5:15 PM Signed I called patient to discuss results - he is advised to call back to schedule CT urogram and urology referral. BRAXTON Leon Megan N, PA-C 06/23/2023 12:51 PM Signed He hasn't scheduled - please call him to set up CT urogram, urology appointment. BRAXTON Leon Liana 06/24/2023 8:56 AM Signed Please contact the patient to schedule an appointment. Appointment specifications include: WHY does the patient need to be seen? Ct urorgram WHO should the patient schedule the appointment with? Physician only WHAT specific type of appointment is needed? Follow-Up WHEN should the patient be seen? First available appointment WHERE should the patient be seen? In Office Maru Varghese 06/27/2023 9:44 AM Signed Please contact the patient to schedule an appointment. Appointment specifications include: WHY does the patient need to be seen? Hematuria, unspecified type [R31.9] WHO should the patient schedule the appointment with? First provider available WHAT specific type of appointment is needed? Ct urogram WHEN should the patient be seen? First available appointment WHERE should the patient be seen? In Office Called and left message Maru Varghese 06/29/2023 11:44 AM Signed Please contact the patient to schedule an appointment. Appointment specifications include: WHY does the patient need to be seen? Hematuria, unspecified type [R31.9] WHO should the patient schedule the appointment with? ct WHAT specific type of appointment is needed? ct WHEN should the patient be seen? First available appointment WHERE should the patient be seen? In Office Michelle Diaz 06/29/2023 3:04 PM Signed Patient is seeing urology outside of the clinic He is seeing urologist Dr Scanlon in [place] and they were told the office needs the consult and records Please advise - patient only had phone number of office [phone] Sherman Aggarwal MA 06/30/2023 2:03 PM Signed Faxed last OV and order with demographics to Dr. Sky's office. Patient informed. Sherman Aggarwal MA June 30, 2023 2:02 PM Allergies As of Date: 06/16/2023 (No Known Allergies) Date Reviewed: 06/15/2023 Reviewed by: Stacey Cruz MA - Fully Assessed Reason for Visit: Results [95] Primary Visit Diagnosis:Hematuria, unspecified type [R31.9] Order(s):CT UROGRAM WO/W IVCON [[id number]] Order #: [id number] FUTURE [] iv contrast (will be provided with radiology test)CT Urogram WO/W Inject, intravenously, once for 1 dose.No IV access, insert saline lock prior to the beginning of sedation, infusion, injection of imaging exam. Discontinue saline lock post exam. If Pt. has a central line or IVAD, may access for administration according to line specific nursing protocol. Once exam is complete flush line and de-access according to line specific nursing protocol in the CT contrast administration guidelines link.Disp: 1 EachRfl: 0 [] 0.9 % sodium chloride (NACL 0.9%) infusionInject 5-30 mL/hr intravenously one time only for 1 dose. Administer at rate defined per CT contrast administration specifications. To be provided with radiology test.Disp: 1 EachRfl: 0 CONSULT TO UROLOGY [9041] Order #: [id number]: 1 FUTURE Prescriptions as of 06/30/2023 - fenofibrate nanocrystallized (TRICOR) 145 mg tablet Take 1 tablet by mouth once daily. - atorvastatin (LIPITOR) 20 mg tablet Take 1 tablet by mouth once daily. - buPROPion XL (WELLBUTRIN XL) 150 mg 24 hr tablet Take 1 tablet by mouth every morning. - citalopram (CELEXA) 40 mg tablet Take 1 tablet by mouth once daily. - cyclobenzaprine (FLEXERIL) 10 mg tablet Take by mouth three times daily. - omega-3 fatty acids 1,000 mg cap Take 2 capsules by mouth once daily. - mrxmdyyo-trb-QF-K-lycopene 400-20-370 mcg tab Take by mouth once daily. - vit X-peomsrk-hfaa-rutin-hb196 384-17-22-40 mg tab Take by mouth once daily. Problem List As Of Date 06/16/2023 Noted Resolved Mixed hyperlipidemia [E78.2] 12/30/2016 Depression [F32.A] 05/11/2018 ISAK (obstructive sleep apnea) [G47.33] 03/24/2020 Prescriptions ordered this encounter Disp Refills Start End IV CONTRAST (RADIOLOGY PROCEDURE) 1 Ea* 0 06/16/2023 06/17/2023 Class: In Office Sig: CT Urogram WO/W Inject, intravenously, once for 1 dose.No IV access, insert saline lock prior to the beginning of sedation, infusion, injection of imaging exam. Discontinue saline lock post exam. If Pt. has a central line or IVAD, may access for administration according to line specific nursing protocol. Once exam is complete flush line and de-access according to line (more content not included)... Normal [facility] ALBUMIN/CREAT RATIO RND URon 06-15-2023 Albumin DL <= 20 mg/L (U) [Mass/Vol] 32.3 mg/L Normal [facility] Comment on above: Order Comment: Speci men Type: URINE SPECIMEN Ordering Facility: [facility] Address: [address] [id number] Performed By: #### L [id number] #### [facility] CLIA [id number] [facility] [address] [place] Albumin/Creatinine (U) [Mass ratio] 22 mg/g Normal <30 [facility] Comment on above: Order Comment: Speci men Type: URINE SPECIMEN Ordering Facility: [facility] Address: [address] [id number] Result Comment: Adul t Male and Female Nephrotic Criteria: <30 mg/g is considered normal to mildly increased 30-300 mg/g is considered moderately increased >300 mg/g is considered severely increased KDIGO. (2013). KDIGO 2012 Clinical Practice Guideline for the Evaluation and Management of Chronic Kidney Disease. Official Journal of the International Society of Nephrology, 3(1), 1-150. Performed By: #### L [id number] #### [facility] CLIA [id number] [address] [place] [address] [place] Creatinine (U) [Mass/Vol] 145.4 mg/dL Normal 20.0-300.0 [facility] Comment on above: Order Comment: Speci men Type: URINE SPECIMEN Ordering Facility: [facility] Address: [address] [place] [address] Performed By: #### L [id number] #### [facility] CLIA [id number] [address] [place] [address] [place] CBC W Auto Differential pane l (Bld)on 06-15-2023 Basophils (Bld) [#/Vol] 10*3/uL Normal <0.11 C [facility] Comment on above: Order Comment: Speci men Type: URINE SPECIMEN Ordering Facility: [facility] Address: [address] [place] [address] Performed By: #### L [id number] #### [facility] CLIA [id number] [address] [place] [address] [place] Basophils/100 WBC (Bld) 0.4 % Normal C [facility] Comment on above: Order Comment: Speci men Type: URINE SPECIMEN Ordering Facility: [facility] Address: [address] [place], [place] [id number] Performed By: #### L [id number] #### [facility] CLIA [id number] [address] [place] [address] [place] Differential cell count method Nom (Bld) Auto Normal [facility] Comment on above: Order Comment: Speci men Type: URINE SPECIMEN Ordering Facility: [facility] Address: [address] Performed By: #### L [id number] #### [facility] CLIA [id number] [address] [place] [address] [place] Eosinophils (Bld) [#/Vol] 0.08 10*3/uL Normal <0.46 [facility] Comment on above: Order Comment: Speci men Type: URINE SPECIMEN Ordering Facility: [facility] Address: [address] Performed By: #### L [id number] #### [facility] CLIA [id number] [address] [place] [address] [place] Eosinophils/100 WBC (Bld) 1.5 % Normal [facility] Comment on above: Order Comment: Speci men Type: URINE SPECIMEN Ordering Facility: [facility] Address: [address] Performed By: #### L [id number] #### [facility] CLIA [id number] [address] [place] [address] [place] Erythrocyte distribution width (RBC) [Ratio] 12.6 % Normal 11.5-15.0 [facility] Comment on above: Order Comment: Speci men Type: URINE SPECIMEN Ordering Facility: [facility] Address: [address] Performed By: #### L [id number] #### [facility] CLIA [id number] [address] [place] [address] [place] Hematocrit (Bld) [Volume fraction] 42.4 % Normal 39.0-51.0 [facility] Comment on above: Order Comment: Speci men Type: URINE SPECIMEN Ordering Facility: [facility] Address: [address] Performed By: #### L [id number] #### [facility] CLIA [id number] [address] [place] [address] [place] Hemoglobin (Bld) [Mass/Vol] 14.5 g/dL Normal 13.0-17.0 [facility] Comment on above: Order Comment: Speci men Type: URINE SPECIMEN Ordering Facility: [facility] Address: [address] [place], [place] [id number] Performed By: #### L [id number] #### [facility] CLIA [id number] [address] [place] [address] [place] Immature granulocytes (Bld) [#/Vol] 10*3/uL Normal <0.10 [facility] Comment on above: Order Comment: Speci men Type: URINE SPECIMEN Ordering Facility: [facility] Address: [address] [place], [place] [id number] Performed By: #### L [id number] #### [facility] CLIA [id number] [address] [place] [address] [place] Immature granulocytes/100 WBC (Bld) 0.2 % Normal [facility] Comment on above: Order Comment: Speci men Type: URINE SPECIMEN Ordering Facility: [facility] Address: [address] [place], [place] [id number] Performed By: #### L [id number] #### [facility] CLIA [id number] [facility] [place] [address] [place] Lymphocytes (Bld) [#/Vol] 2.49 10*3/uL Normal 1.00-4.00 [facility] Comment on above: Order Comment: Speci men Type: URINE SPECIMEN Ordering Facility: [facility] Address: [address] [place], [place] [id number] Performed By: #### L [id number] #### [facility] CLIA [id number] [address] [place] [address] [place] Lymphocytes/100 WBC (Bld) 45.2 % Normal [facility] Comment on above: Order Comment: Speci men Type: URINE SPECIMEN Ordering Facility: [facility] Address: [address] Performed By: #### L [id number] #### [facility] CLIA [id number] [address] [place] MCH (RBC) [Entitic mass] 28.6 pg Normal 26.0-34.0 [facility] Comment on above: Order Comment: Speci men Type: URINE SPECIMEN Ordering Facility: [facility] Address: [address] Performed By: #### L [id number] #### [facility] CLIA [id number] [address] [place] [address] [place] MCHC (RBC) [Mass/Vol] 34.2 g/dL Normal 30.5-36.0 [facility] Comment on above: Order Comment: Speci men Type: URINE SPECIMEN Ordering Facility: [facility] Address: [address] Performed By: #### L [id number] #### [facility] CLIA [id number] [address] [place] [address] [place] MCV (RBC) [Entitic vol] 83.6 fL Normal 80.0-100.0 C [facility] Comment on above: Order Comment: Speci men Type: URINE SPECIMEN Ordering Facility: [facility] Address: [address] Performed By: #### L [id number] #### [facility] CLIA [id number] [address] [place] [address] [place] Monocytes (Bld) [#/Vol] 0.54 10*3/uL Normal <0.87 [facility] Comment on above: Order Comment: Speci men Type: URINE SPECIMEN Ordering Facility: [facility] Address: [address] Performed By: #### L [id number] #### [facility] CLIA [id number] [address] [place] [address] [place] Monocytes/100 WBC (Bld) 9.8 % Normal [facility] Comment on above: Order Comment: Speci men Type: URINE SPECIMEN Ordering Facility: [facility] Address: [address] [place], [place] [id number] Performed By: #### L [id number] #### [facility] CLIA [id number] [address] [place] [address] [place] Neutrophils (Bld) [#/Vol] 2.37 10*3/uL Normal 1.45-7.50 [facility] Comment on above: Order Comment: Speci men Type: URINE SPECIMEN Ordering Facility: [facility] Address: [address] [place], [place] [id number] Performed By: #### L [id number] #### [facility] CLIA [id number] [address] [place] [address] [place] Neutrophils/100 WBC (Bld) 42.9 % Normal [facility] Comment on above: Order Comment: Speci men Type: URINE SPECIMEN Ordering Facility: [facility] Address: [address] [place], [place] [id number] Performed By: #### L [id number] #### [facility] CLIA [id number] [address] [place] [address] [place] Nucleated RBC (Bld) [#/Vol] 10*3/uL Normal <0.01 [facility] Comment on above: Order Comment: Speci men Type: URINE SPECIMEN Ordering Facility: [facility] Address: [address] [place] [address] Performed By: #### L [id number] #### [facility] CLIA [id number] [address] [place] [address] [place] Nucleated RBC/100 WBC (Bld) [Ratio] 0.0 /100 WBC Normal [facility] Comment on above: Order Comment: Speci men Type: URINE SPECIMEN Ordering Facility: [facility] Address: [address] [place] [address] Performed By: #### L [id number] #### [facility] CLIA [id number] [address] [place] [address] [place] Platelet mean volume (Bld) [Entitic vol] 11.2 fL Normal 9.0-12.7 [facility] Comment on above: Order Comment: Speci men Type: URINE SPECIMEN Ordering Facility: [facility] Address: [address] [place], [place] [id number] Performed By: #### L [id number] #### [facility] CLIA [id number] [address] [place] [address] [place] Platelets (Bld) [#/Vol] 272 10*3/uL Normal 150-400 [facility] Comment on above: Order Comment: Speci men Type: URINE SPECIMEN Ordering Facility: [facility] Address: [address] [place], [place] [id number] Performed By: #### L [id number] #### [facility] CLIA [id number] [facility] [place] [address] [place] RBC (Bld) [#/Vol] 5.07 10*6/uL Normal 4.20-6.00 [facility] Comment on above: Order Comment: Speci men Type: URINE SPECIMEN Ordering Facility: [facility] Address: [address] [place] [id number] Performed By: #### L [id number] #### [facility] CLIA [id number] [address] [place] [address] [place] WBC (Bld) [#/Vol] 5.51 10*3/uL Normal 3.70-11.00 [facility] Comment on above: Order Comment: Speci men Type: URINE SPECIMEN Ordering Facility: [facility] Address: [address] [place] [address] Performed By: #### L [id number] #### [facility] YRISIA [id number] [address] [facility] [place] [id number] [id number] [place] CNOVon 06-15-2023 CNOV Office Visit (INMSHE ) -- BOBBI GARRISON ([id number]) 1970 M Date Time Provider Department 06/15/23 3:00 PM [facility] [place] During your visit today, we recorded the following information about you: Pulse Blood pressure Weight Height 84/minute 132/82 112.9 kg 1.905 m Stacey Cruz MA 06/15/2023 2:51 PM Signed [facility] FACTS Please visit our lab at least 3-5 days before your scheduled appointment to have your lab work drawn, if lab work is ordered. This will allow us the ability to review your lab work results with you during your scheduled visit. [facility]: Lab is open Tuesday - Tuesday from 6:30am to 5pm and open 8am -12pm on Saturdays. [facility]: Tuesday- 7:30am to 5:30pm. Fridays 7:30-5:00pm and Tuesday 8:00am to 12:00 pm. Routine Lab Orders 60 days after they are entered. If your lab orders , you may be required to wait in the lab while they are reinstated FUTURE ORDERS are lab tests to be completed on the ?EXPECTED? date. These orders 60 days after the expected date. STANDING ORDERS are recurring orders with an expiration date. The interval will indicate how often the test should be completed. FASTING LAB means nothing to eat or drink (except water) 10-12 hours before your blood is drawn. CT/MRI/IVP If you have one of these radiology exams ordered along with blood work, please complete the blood work at least one day prior to the scheduled exam. My Chart Schedule My Appointment enables you to view your established primary care provider's open schedule and book an appointment online in real-time. This feature is available in internal medicine, family medicine, or pediatrics at any of our [facility] locations and main campus. Frieda Forrest PA-C 06/15/2023 4:28 PM Signed Subjective HPI Patient presents today for yearly appointment due to HTN, HLD, LBP, kdiney stones, DM2. HTN -patient reports his BP was recently elevated on work physical. Not checking home readings. Is trying to follow healthy diet down 2 pounds. Denies CP, SOB, PND, orthopnea, and syncope. HLD -patient is compliant with Lipitor, Tricor. No side effects of medication. Patient was treated for low back pain 04/2023. This is resolved. Patient does have history of kidney stones, but last about a year ago. He denies any gross hematuria, pain with urination. UA with physical did show blood 2+/protein in urine. DM2-not currently on medications. Patient due to limiting pop from diet. A1c pending. Consents to Shingrix vaccine. Declines Hep B. Review of Systems All other systems reviewed and are negative. Past Medical History: PAST MEDICAL HISTORY Diagnosis Date Depressive disorder, not elsewhere classified Mixed hyperlipidemia ISAK (obstructive sleep apnea) compliant Type 2 diabetes mellitus without complication, without long-term current use of insulin (HCC) Past Surgical History: PAST SURGICAL HISTORY Procedure Laterality Date /11/29 JT/PHALANX W/NEURECT W/DIR CLSR Left partial, mid finger PAST SURGICAL HISTORY OF right knee surgery to insert pins PAST SURGICAL HISTORY OF left eye surgery PAST SURGICAL HISTORY OF wisdom tooth surgery Family History: FAMILY HISTORY Adopted: Yes Social History: Social History Tobacco Use Smoking status: Former Smokeless tobacco: Current Types: Snuff Substance Use Topics Alcohol use: Yes Drug use: No Current Medications: cyclobenzaprine (FLEXERIL) 10 mg tablet, Take by mouth three times daily., Disp: , Rfl: omega-3 fatty acids 1,000 mg cap, Take 2 capsules by mouth once daily., Disp: , Rfl: amthxldg-jcf-HW-K-lycopene 400-20-370 mcg tab, Take by mouth once daily., Disp: , Rfl: vit W-ewpalad-oonc-rutin-hb196 407-12-24-40 mg tab, Take by mouth once daily., Disp: , Rfl: fenofibrate nanocrystallized (TRICOR) 145 mg tablet, Take 1 tablet by mouth once daily., Disp: 90 tablet, Rfl: 3 atorvastatin (LIPITOR) 20 mg tablet, Take 1 tablet by mouth once daily., Disp: 90 tablet, Rfl: 3 buPROPion XL (WELLBUTRIN XL) 150 mg 24 hr tablet, Take 1 tablet by mouth every morning., Disp: 90 tablet, Rfl: 3 citalopram (CELEXA) 40 mg tablet, Take 1 tablet by mouth once daily., Disp: 90 tablet, Rfl: 3 [DISCONTINUED] predniSONE (DELTASONE) 10 mg tablet, Take 20 mg by mouth twice daily., Disp: , Rfl: [DISCONTINUED] fenofibrate nanocrystallized (TRICOR) 145 mg tablet, TAKE 1 TABLET DAILY, Disp: 90 tablet, Rfl: 3 [DISCONTINUED] atorvastatin (LIPITOR) 20 mg tablet, Take 1 tablet by mouth once daily., Disp: 90 tablet, Rfl: 3 [DISCONTINUED] buPROPion XL (WELLBUTRIN XL) 150 mg 24 hr tablet, Take 1 tablet by mouth every morning., Disp: 90 tablet, Rfl: 3 [DISCONTINUED] citalopram (CELEXA) 40 mg tablet, Take 1 tablet by mouth once daily., Disp: 90 t (more content not included)... Normal [facility] Comprehensive metabolic 2000 panelon 06-15-2023 Albumin [Mass/Vol] 5.0 g/dL High 3.9-4.9 [facility] Comment on above: Order Comment: Speci men Type: URINE SPECIMEN Ordering Facility: [facility] Address: [address] [place] [address] Performed By: #### L [id number] #### [facility] CLIA [id number] [address] [facility] [address] [place] ALP [Catalytic activity/Vol] 37 U/L Low 38-113 [facility] Comment on above: Order Comment: Speci men Type: URINE SPECIMEN Ordering Facility: [facility] Address: [address] Performed By: #### L [id number] #### [facility] CLIA [id number] [address] [place] ALT [Catalytic activity/Vol] 44 U/L Normal 10-54 [facility] Comment on above: Order Comment: Speci men Type: URINE SPECIMEN Ordering Facility: [facility] Address: [address] Performed By: #### L [id number] #### [facility] CLIA [id number] [address] [place] [address] [place] Anion gap [Moles/Vol] 13 mmol/L Normal 9-18 [facility] Comment on above: Order Comment: Speci men Type: URINE SPECIMEN Ordering Facility: [facility] Address: [address] [place], [place] [address] Performed By: #### L [id number] #### [facility] CLIA [id number] [address] [place] [address] [place] AST [Catalytic activity/Vol] 32 U/L Normal 14-40 [facility] Comment on above: Order Comment: Speci men Type: URINE SPECIMEN Ordering Facility: [facility] Address: [address] Performed By: #### L [id number] #### [facility] CLIA [id number] [address] [place] [address] [place] Bilirubin [Mass/Vol] 0.4 mg/dL Normal 0.2-1.3 [facility] Comment on above: Order Comment: Speci men Type: URINE SPECIMEN Ordering Facility: [facility] Address: [address] [place], [place] [address] Performed By: #### L [id number] #### [facility] CLIA [id number] [address] [place] [id number] [place] Calcium [Mass/Vol] 9.7 mg/dL Normal 8.5-10.2 [facility] Comment on above: Order Comment: Speci men Type: URINE SPECIMEN Ordering Facility: [facility] Address: [address] [place] [address] Performed By: #### L [id number] #### [facility] CLIA [id number] [address] [place] [address] [place] Chloride [Moles/Vol] 103 mmol/L Normal 97-105 [facility] Comment on above: Order Comment: Speci men Type: URINE SPECIMEN Ordering Facility: [facility] Address: [address] [place], [place] [address] Performed By: #### L [id number] #### [facility] CLIA [id number] [address] [place] [address] [place] CO2 [Moles/Vol] 23 mmol/L Normal 22-30 [facility] Comment on above: Order Comment: Speci men Type: URINE SPECIMEN Ordering Facility: [facility] Address: [address] [place] [address] Performed By: #### L [id number] #### [facility] CLIA [id number] [address] [place] [id number] [place] Creatinine [Mass/Vol] 1.09 mg/dL Normal 0.73-1.22 [facility] Comment on above: Order Comment: Speci men Type: URINE SPECIMEN Ordering Facility: [facility] Address: [address] [place] [address] Performed By: #### L [id number] #### [facility] CLIA [id number] [address] [place] [id number] [place] ESTIMATED GLOMERULAR FILTRATION RATE 82 mL/min/1.73m??? Normal >=60 [facility] Comment on above: Order Comment: Speci men Type: URINE SPECIMEN Ordering Facility: [facility] Address: [address] [place] [address] Result Comment: [place] mated Glomerular Filtration Rate (eGFR) is calculated using the 2020 CKD-EPI creatinine equation. This equation utilizes serum creatinine, sex, and age as parameters. The creatinine assay has traceable calibration to isotope dilution-mass spectrometry. Refer to KDIGO guidelines for clinical interpretation. In patients with unstable renal function, e.g. those with acute kidney injury, the eGFR may not accurately reflect actual GFR. Performed By: #### L [id number] #### [facility] CLIA [id number] [address] [place] [address] [place] Glucose [Mass/Vol] 87 mg/dL Normal 74-99 [facility] Comment on above: Order Comment: Speci men Type: URINE SPECIMEN Ordering Facility: [facility] Address: [address] [place] [address] Result Comment: The [place] Diabetes Association (ADA) provides guidance for cutoff values for fasting glucose and random glucose. The ADA defines fasting as no caloric intake for at least 8 hours. Fasting plasma glucose results between 100 to 125 mg/dL indicate increased risk for diabetes (prediabetes). Fasting plasma glucose results greater than or equal to 126 mg/dL meet the criteria for diagnosis of diabetes. In the absence of unequivocal hyperglycemia, results should be confirmed by repeat testing. In a patient with classic symptoms of hyperglycemia or hyperglycemic crisis, random plasma glucose results greater than or equal to 200 mg/dL meet the criteria for diagnosis of diabetes. Reference: Standards of Medical Care in Diabetes 2016, [place] Diabetes Association. Diabetes Care. 2016.39(Suppl 1). Performed By: #### L [id number] #### [facility] CLIA [id number] [address] [place] [address] [place] Potassium [Moles/Vol] 4.2 mmol/L Normal 3.7-5.1 [facility] Comment on above: Order Comment: Speci men Type: URINE SPECIMEN Ordering Facility: [facility] Address: [address] [place] [address] Performed By: #### L [id number] #### [facility] CLIA [id number] [address] [place] [address] [place] Protein [Mass/Vol] 7.5 g/dL Normal 6.3-8.0 [facility] Comment on above: Order Comment: Speci men Type: URINE SPECIMEN Ordering Facility: [facility] Address: [address] [place] [address] Performed By: #### L [id number] #### [facility] CLIA [id number] [address] [place] [address] [place] Sodium [Moles/Vol] 139 mmol/L Normal 136-144 [facility] Comment on above: Order Comment: Speci men Type: URINE SPECIMEN Ordering Facility: [facility] Address: [address] [place] [address] Performed By: #### L [id number] #### [facility] CLIA [id number] [address] [place] [address] [place] Urea nitrogen [Mass/Vol] 15 mg/dL Normal 9-24 [facility] Comment on above: Order Comment: Speci men Type: URINE SPECIMEN Ordering Facility: [facility] Address: [address] [place] [address] Performed By: #### L [id number] #### [facility] CLIA [id number] [address] [place] [address] [place] HbA1c (Bld)on 06-15-2023 Average glucose Estimated from glycated hemoglobin (Bld) [Mass/Vol] 154 mg/dL Normal [facility] Comment on above: Order Comment: Speci men Type: BLOOD SPECIMEN Ordering Facility: [facility] Address: [address] [place] [address] Result Comment: eAG: (Estimated average glucose) is a calculated value from HgbA1c and is manufacturing sales representative of the average blood glucose level in the last 2-3 month period. Performed By: #### 5 [id number] #### [facility] CLIA [id number] [address] [place] [address] [place] HbA1c (Bld) [Mass fraction] 7.0 % High 4.3-5.6 [facility] Comment on above: Order Comment: Suleiman men Type: BLOOD SPECIMEN Ordering Facility: [facility] Address: [address] [place] [address] Result Comment: [place] Diabetes Association guidelines indicate that patients with HgbA1c in the range 5.7-6.4% are at increased risk for development of diabetes, and intervention by lifestyle modification may be beneficial. HgbA1c greater or equal to 6.5% is considered diagnostic of diabetes. Performed By: #### 5 [id number] #### [facility] CLIA [id number] [address] [place] [address] [place] Lipid 1996 panelon 3 Cholesterol [Mass/Vol] 151 mg/dL Normal <200 [facility] Comment on above: Order Comment: Saei men Type: URINE SPECIMEN Ordering Facility: [facility] Address: [address] [place], [place] [address] Result Comment: <200 mg/dL, Desirable 200-239 mg/dL, Borderline high >239 mg/dL, High Performed By: #### L [id number] #### [facility] CLIA [id number] [address] [place] [address] [place] Cholesterol in HDL [Mass/Vol] 37 mg/dL Low >39 [facility] Comment on above: Order Comment: Saei men Type: URINE SPECIMEN Ordering Facility: [facility] Address: [address] [place], [place] [address] Result Comment: 40-5 9 mg/dL, Acceptable >59 mg/dL, High: Negative risk factor for coronary heart disease <40 mg/dL, Low: Positive risk factor for coronary heart disease Performed By: #### L [id number] #### [facility] CLIA [id number] [address] [place] Cholesterol in LDL [Mass/Vol] 76 mg/dL Normal <100 [facility] Comment on above: Order Comment: Speci men Type: URINE SPECIMEN Ordering Facility: [facility] Address: [address] [place] [address] Result Comment: <100 mg/dL, Optimal 100-129 mg/dL, Near optimal/above optimal 130-159 mg/dL, Borderline high 160-189 mg/dL, High >189 mg/dL, Very high Secondary prevention optimal LDL Cholesterol levels are recommended to be < 70 mg/dL Performed By: #### L [id number] #### [facility] CLIA [id number] [address] [place] [address] [place] Cholesterol in LDL/Cholesterol in HDL [Mass ratio] 2.05 {ratio} Normal <2.54 [facility] Comment on above: Order Comment: Speci men Type: URINE SPECIMEN Ordering Facility: [facility] Address: [address] [place] [address] Result Comment: Refe rence: 1. National Cholesterol Education Program ATP III Guideline At-A-Glance Quick Desk Reference: National Heart, Lung, and Blood [place]. National Institutes of Health. 2001: NIH Publication No. 01-3305. 2. An International Atherosclerosis Society position paper: global recommendations for the management of dyslipidemia: executive summary, Atherosclerosis. 2014: 232(2):410-413. Performed By: #### L [id number] #### [facility] CLIA [id number] [address] [place] [address] [place] Cholesterol in VLDL [Mass/Vol] 38 mg/dL High <30 [facility] Comment on above: Order Comment: Speci men Type: URINE SPECIMEN Ordering Facility: [facility] Address: [address] [place] [address] Performed By: #### L [id number] #### [facility] CLIA [id number] [address] [facility] [place] [address] [place] Cholesterol non HDL [Mass/Vol] 114 mg/dL Normal <130 [facility] Comment on above: Order Comment: Speci men Type: URINE SPECIMEN Ordering Facility: [facility] Address: [address] [place] [address] Result Comment: <130 mg/dL, Optimal 130-159 mg/dL, Near optimal/above optimal 160-189 mg/dL, Borderline high 190-219 mg/dL, High >219 mg/dL, Very high Secondary prevention optimal non HDL Cholesterol levels are recommended to be <100 mg/dL Performed By: #### L [id number] #### [facility] CLIA [id number] [address] [place] [address] [place] Cholesterol.total/Neeru sterol in HDL [Mass ratio] 4.08 {ratio} Normal <5.10 [facility] Comment on above: Order Comment: Speci men Type: URINE SPECIMEN Ordering Facility: [facility] Address: [address] [place], [place] [address] Performed By: #### L [id number] #### [facility] CLIA [id number] [address] [place] FASTING TIME 3 hrs Normal [facility] Comment on above: Order Comment: Speci men Type: URINE SPECIMEN Ordering Facility: [facility] Address: [address] [place], [place] [address] Performed By: #### L [id number] #### [facility] CLIA [id number] [address] [place] Triglyceride [Mass/Vol] 189 mg/dL High <150 C [facility] Comment on above: Order Comment: Speci men Type: URINE SPECIMEN Ordering Facility: [facility] Address: [address] [place], [place] [address] Result Comment: <150 mg/dL, Normal 150-199 mg/dL, Borderline high 200-499 mg/dL, High >499 mg/dL, Very high Performed By: #### L [id number] #### [facility] CLIA [id number] [address] [place] [address] [place] [facility] Prostate specific Ag [Mass/Vol] 1.08 ng/mL Normal <2.60 [facility] Comment on above: Order Comment: Speci men Type: URINE SPECIMEN Ordering Facility: [facility] Address: [address] [place] [address] Result Comment: Albert zhong PSA test methodology used is the Electrochemiluminescence Immunoassay by [employer]. Total PSA values by differing methodologies cannot be interchanged. Performed By: #### L [id number] #### [facility] CLIA [id number] [address] [place] [address] [place] TSH SerPl-aCncon 06-15-2023 TSH Qn 1.280 m[IU]/L Normal 0.270-4.20 0 [facility] Comment on above: Order Comment: Speci men Type: URINE SPECIMEN Ordering Facility: [facility] Address: [address] [place] [address] Performed By: #### L [id number] #### [facility] CLIA [id number] [address] [place] [address] [place] URINALYSIS, REFLEX MICROSCOP ICon 06-15-2023 Bilirubin Ql (U) Negative Normal Negative [facility] Comment on above: Order Comment: Speci men Type: URINE SPECIMEN Ordering Facility: [facility] Address: [address] [place] [address] Performed By: #### L [id number] #### [facility] CLIA [id number] [address] [place] [address] [place] Clarity (Unsp spec) Clear Normal Clear [facility] Comment on above: Order Comment: Speci men Type: URINE SPECIMEN Ordering Facility: [facility] Address: [address] [place], [place] [address] Performed By: #### L [id number] #### [facility] CLIA [id number] [address] [place] [address] [place] Color (U) Light Yellow Normal Yellow [facility] Comment on above: Order Comment: Speci men Type: URINE SPECIMEN Ordering Facility: [facility] Address: [address] [place] [address] Performed By: #### L [id number] #### [facility] CLIA [id number] [address] [place] [address] [place] Glucose Test strip (U) [Mass/Vol] Negative Normal Trace, Negative [facility] Comment on above: Order Comment: Speci men Type: URINE SPECIMEN Ordering Facility: [facility] Address: [address] Performed By: #### L [id number] #### [facility] CLIA [id number] [address] [place] [address] [place] Hemoglobin Ql (U) 3+ Abnormal Negative, Trace [facility] Comment on above: Order Comment: Speci men Type: URINE SPECIMEN Ordering Facility: [facility] Address: [address] Performed By: #### L [id number] #### [facility] CLIA [id number] [address] [place] Ketones Ql (U) Negative Normal Trace, Negative [facility] Comment on above: Order Comment: Speci men Type: URINE SPECIMEN Ordering Facility: [facility] Address: [address] Performed By: #### L [id number] #### [facility] CLIA [id number] [address] [place] [address] [place] Leukocyte esterase Test strip Ql (U) Negative Normal Negative, 25 Elliott/uL [facility] Comment on above: Order Comment: Speci men Type: URINE SPECIMEN Ordering Facility: [facility] Address: [address] [place] [address] Performed By: #### L [id number] #### [facility] CLIA [id number] [address] [place] [address] [place] Nitrite Ql (U) Negative Normal Negative [facility] Comment on above: Order Comment: Speci men Type: URINE SPECIMEN Ordering Facility: [facility] Address: [address] [place] [address] Performed By: #### L [id number] #### [facility] CLIA [id number] [address] [place] [address] [place] pH (U) 6.0 [pH] Normal 5.0-8.0 [facility] Comment on above: Order Comment: Speci men Type: URINE SPECIMEN Ordering Facility: [facility] Address: [address] [place] [address] Performed By: #### L [id number] #### [facility] CLIA [id number] [address] [place] [address] [place] Protein (U) [Mass/Vol] Trace Normal Trace , Negative [facility] Comment on above: Order Comment: Speci men Type: URINE SPECIMEN Ordering Facility: [facility] Address: [address] [place], [place] [address] Performed By: #### L [id number] #### [facility] CLIA [id number] [address] [place] [address] [place] RBC LM.HPF (Urine sed) [#/Area] /[HPF] Abnormal 0-3 /HPF [facility] Comment on above: Order Comment: Speci men Type: URINE SPECIMEN Ordering Facility: [facility] Address: [address] [place], [place] [address] Performed By: #### L [id number] #### [facility] CLIA [id number] [address] [place] [address] [place] Specific gravity (U) [Rel density] 1.023 Normal 1.005-1.03 0 [facility] Comment on above: Order Comment: Speci men Type: URINE SPECIMEN Ordering Facility: [facility] Address: [address] [place], [place] [id number] Performed By: #### L [id number] #### [facility] CLIA [id number] [address] [place] [address] [place] Urobilinogen Ql (U) Negative Normal Negative [facility] Comment on above: Order Comment: Speci men Type: URINE SPECIMEN Ordering Facility: [facility] Address: [address] [place] [address] Performed By: #### L [id number] #### [facility] CLIA [id number] [address] [place] [address] [place] WBC LM.HPF (Urine sed) [#/Area] 0-5 /HPF Normal 0-5 /HPF [facility] Comment on above: Order Comment: Speci men Type: URINE SPECIMEN Ordering Facility: [facility] Address: [address] [place] [id number] Performed By: #### L [id number] #### [facility] CLIA [id number] [facility] [place] [address] [place] CNOVon 05-25-2023 CNOV Office Visit ([place] ) -- BOBBI GARRISON ([id number]) 1970 M Date Time Provider Department 05/25/23 3:20 PM FRIEDA FORREST During your visit today, we recorded the following information about you: Pulse Blood pressure Weight Height 93/minute 136/77 113.9 kg 1.905 m Frieda Forrest PA-C 05/25/2023 3:49 PM Addendum Low Back Pain Exercise Guide Regular exercises to restore the strength of your back and a gradual return to everyday activities are important for your full recovery. These exercises are specifically designed to rehabilitate the muscles of the lower back by increasing the strength and flexibility. This exercise program should be performed on a regular basis to regain and improve lost muscular strength, endurance, and flexibility; thus a consistent effort on your part is required to obtain the maximum benefit from the exercise program outlined. When correctly performed all of these exercises may be accomplished without difficulty. You may notice some muscular fatigue and soreness for the initiation of the exercise program, but this should be distinguished from pain. In addition, there should not be any increase in pain or swelling. These signs may indicate too much activity too fast, and necessitate that you consult with your doctor. Heat-up lower back- Always heat-up the area prior to stretching and exercises for 15 to 20 minutes. Suggested heating techniques: A) Towels soaked in hot water B) Heat packs C) Hot tubs *Always use caution when applying heat to the body surface. The amount of heat applied should not exceed the patients comfort level. Use a dry towel as a barrier between the skin and the hot towel or hot pack to help protect the skin, when needed. Initial Exercise Program Ankle Pumps Lie on your back. Move ankles up and down. Repeat 10 times. Repeat 10 times. Heel Slides Lie on your back. Slowly bend and straighten knee. Repeat 10 times. Abdominal Contraction Lie on your back with knees bent and hands resting below ribs. Tighten abdominal muscles to squeeze ribs down toward back. Be sure not to hold breath. Hold 5 seconds. Relax. Repeat 10 times. Wall Squats Stand with back leaning against wall. Walk feet 12 inches in front of body. Keep abdominal muscles tight while slowly bending both knees 45 degrees. Hold 5 seconds. Slowly return to upright position. Repeat 10 times. Heel Raises Stand with weight even on both feet. Slowly raise heels up and down. Repeat 10 times. Straight Leg Raises Lie on your back with one leg straight and one knee bent. Tighten abdominal muscles to stabilize low back. Slowly lift leg straight up about 6 to 12 inches and hold 1 to 5 seconds. Lower leg slowly. Repeat 10 times. Intermediate Exercise Program Single Knee to Chest Stretch Lie on your back with both knees bent. Hold thigh behind knee and bring one knee up to chest. Hold 20 seconds. Relax. Repeat 5 times on each side. Hamstring Stretch Lie on your back with legs bent. Hold one thigh behind knee. Slowly straighten knee until a stretch is felt in back of thigh. Hold 20 seconds. Relax. Repeat 5 times on each side. Lumbar Stabilization Exercises With [place]amanian Ball Abdominal muscles must remain contracted during each exercise (see Abdominal Contraction). Perform each exercise for 60 seconds. The farther the ball is from your body, the harder the exercise. Lying on Floor Lie on your back with knees bent and calves resting on ball. Slowly raise arm over head and lower arm, alternating right and left sides. Slowly straighten one knee and relax, alternating right and left sides. Slowly straighten one knee and raise opposite arm over head. Alternate opposite arms and legs. Slowly walk ball forward and backward with legs. Sitting on Ball Sit on ball with hips and knees bent 90? and feet resting on floor. Slowly raise arm over head and lower arm, alternating right and left sides. Slowly raise and lower heel, alternating right and left sides. Slowly raise one heel and raise opposite arm over head. Alternate opposite arm and heel. Marching: Slowly raise one foot 2 inches from floor, alternating right and left sides. Standing Stand with ball between your low back and wall. Slowly bend knees 45 ? to 90 ? . Hold 5 seconds. Straighten knees. Slowly bend knees 45 ? to 90 ? while raising both arms over head. Lying on Ball Lie on your stomach over ball Slowly raise alternate arms over head. Slowly raise alternate legs 2 to 4 inches from floor. Combine 1 and 2, alternating opposite arms and legs. Bend one knee. Slowly lift this leg up, alternating right and left legs. NOTE: Be careful not to arch your low back! Advanced Exercise Program Hip Flexor Stretch Lie on your back near edge of bed, holding knees to chest. Sl (more content not included)... Normal [facility] Leslye 09-14-2022 ELDER Telephone (INLITA) -- BOBBI GARRISON ([id number]) 1970 M Date Time Provider Department 09/14/22 DEJA VEE During your visit today, we recorded the following information about you: Cassi Lin Pss 09/14/2022 2:39 PM Signed Patient would like a call back regarding his lab results Allergies As of Date: 09/14/2022 (No Known Allergies) Date Reviewed: 09/13/2022 Reviewed by: Stacey Cruz MA - Fully Assessed Reason for Visit: Patient Update [1234] Results [95] Patient Question [1477] Cmt: Spoke to patient reported improved hgba1c, follow up in 3 months Prescriptions as of 09/15/2022 - atorvastatin (LIPITOR) 20 mg tablet Take 1 tablet by mouth once daily. - buPROPion XL (WELLBUTRIN XL) 150 mg 24 hr tablet Take 1 tablet by mouth every morning. - citalopram (CELEXA) 40 mg tablet Take 1 tablet by mouth once daily. - fenofibrate nanocrystallized (TRICOR) 145 mg tablet Take 1 tablet by mouth once daily. - omega-3 fatty acids 1,000 mg cap Take 2 capsules by mouth once daily. - yzpeqdfu-zxd-YF-K-lycopene 400-20-370 mcg tab Take by mouth once daily. - vit S-tgyxesg-wlgk-rutin-hb196 050-86-02-40 mg tab Take by mouth once daily. Problem List As Of Date 09/14/2022 Noted Resolved Mixed hyperlipidemia [E78.2] 12/30/2016 Depression [F32.A] 05/11/2018 ISAK (obstructive sleep apnea) [G47.33] 03/24/2020 Encounter Status:Closed by DEJA VEE on 09/15/22 Normal [facility] Basic metabolic 2000 panelon 09-13-2022 Anion gap [Moles/Vol] 13 mmol/L Normal 9-18 [facility] Comment on above: Order Comment: Speci men Type: URINE SPECIMEN Ordering Facility: [facility] Address: [address] [place], [place] [id number] Performed By: #### L [id number] #### [facility] CLIA [id number] [address] [facility] [id number] [place] [address] [place] Calcium [Mass/Vol] 10.4 mg/dL High 8.5-10.2 [facility] Comment on above: Order Comment: Speci men Type: URINE SPECIMEN Ordering Facility: [facility] Address: [address] Performed By: #### L [id number] #### [facility] CLIA [id number] [address] [place] [id number] [place] Chloride [Moles/Vol] 101 mmol/L Normal 97-105 [facility] Comment on above: Order Comment: Speci men Type: URINE SPECIMEN Ordering Facility: [facility] Address: [address] Performed By: #### L [id number] #### [facility] CLIA [id number] [address] [place] [address] [place] CO2 [Moles/Vol] 25 mmol/L Normal 22-30 [facility] Comment on above: Order Comment: Speci men Type: URINE SPECIMEN Ordering Facility: [facility] Address: [address] Performed By: #### L [id number] #### [facility] CLIA [id number] [address] [place] [address] [place] Creatinine [Mass/Vol] 1.13 mg/dL Normal 0.73-1.22 [facility] Comment on above: Order Comment: Speci men Type: URINE SPECIMEN Ordering Facility: [facility] Address: [address] Performed By: #### L [id number] #### [facility] CLIA [id number] [address] [place] [address] [place] ESTIMATED GLOMERULAR FILTRATION RATE 79 mL/min/1.73m??? Normal >=60 [facility] Comment on above: Order Comment: Speci men Type: URINE SPECIMEN Ordering Facility: [facility] Address: [address] [place] [address] Result Comment: [place] mated Glomerular Filtration Rate (eGFR) is calculated using the 2020 CKD-EPI creatinine equation. This equation utilizes serum creatinine, sex, and age as parameters. The creatinine assay has traceable calibration to isotope dilution-mass spectrometry. Refer to KDIGO guidelines for clinical interpretation. In patients with unstable renal function, e.g. those with acute kidney injury, the eGFR may not accurately reflect actual GFR. Performed By: #### L [id number] #### [facility] CLIA [id number] [address] [place] [address] [place] Glucose [Mass/Vol] 100 mg/dL High 74-99 [facility] Comment on above: Order Comment: Speci men Type: URINE SPECIMEN Ordering Facility: [facility] Address: [address] [place] [address] Result Comment: The [place] Diabetes Association (ADA) provides guidance for cutoff values for fasting glucose and random glucose. The ADA defines fasting as no caloric intake for at least 8 hours. Fasting plasma glucose results between 100 to 125 mg/dL indicate increased risk for diabetes (prediabetes). Fasting plasma glucose results greater than or equal to 126 mg/dL meet the criteria for diagnosis of diabetes. In the absence of unequivocal hyperglycemia, results should be confirmed by repeat testing. In a patient with classic symptoms of hyperglycemia or hyperglycemic crisis, random plasma glucose results greater than or equal to 200 mg/dL meet the criteria for diagnosis of diabetes. Reference: Standards of Medical Care in Diabetes 2016, [place] Diabetes Association. Diabetes Care. 2016.39(Suppl 1). Performed By: #### L [id number] #### [facility] CLIA [id number] [facility] [place] [address] [place] Potassium [Moles/Vol] 3.9 mmol/L Normal 3.7-5.1 [facility] Comment on above: Order Comment: Suleiman men Type: URINE SPECIMEN Ordering Facility: [facility] Address: [address] [place] [id number] Performed By: #### L [id number] #### [facility] CLIA [id number] [address] [place] [address] [place] Sodium [Moles/Vol] 139 mmol/L Normal 136-144 [facility] Comment on above: Order Comment: Speci men Type: URINE SPECIMEN Ordering Facility: [facility] Address: [address] [place] [address] Performed By: #### L [id number] #### [facility] CLIA [id number] [address] [place] Urea nitrogen [Mass/Vol] 18 mg/dL Normal 9-24 [facility] Comment on above: Order Comment: Speci men Type: URINE SPECIMEN Ordering Facility: [facility] Address: [address] [place] [address] Performed By: #### L [id number] #### [facility] CLIA [id number] [address] [place] Anion gap [Moles/Vol] 13 mmol/L 9 - 18 mmol/L [facility] Calcium [Mass/Vol] 10.4 mg/dL High 8.5 - 10. 2 mg/dL [facility] Chloride [Moles/Vol] 101 mmol/L 97 - 10 5 mmol/L [facility] CO2 [Moles/Vol] 25 mmol/L 22 - 30 mmol/L [facility] Creatinine [Mass/Vol] 1.13 mg/dL 0.73 - 1.22 mg/dL [facility] Estimated Glomerular Filtration Rate 79 mL/min/1.73m >=60 mL/min/1.7 3m [facility] Glucose [Mass/Vol] 100 mg/dL High 74 - 99 mg/dL [facility] Potassium [Moles/Vol] 3.9 mmol/L 3.7 - 5.1 mmol/L [facility] Sodium [Moles/Vol] 139 mmol/L 136 - 144 mmol/L [facility] Urea nitrogen [Mass/Vol] 18 mg/dL 9 - 24 mg/dL [facility] CNOVon 09-13-2022 CNOV Office Visit ([facility] ) -- AMIBOBBI ([id number]) 1970 M Date Time Provider Department 09/13/22 3:00 PM DEJA VEE During your visit today, we recorded the following information about you: Pulse Blood pressure Weight Height 97/minute 135/77 114.8 kg 1.905 m Deja Vee PA-C 09/13/2022 2:31 PM Addendum SAMPLE 1500 Calorie Diabetic Diet 02/03 This is a sample 1500 calorie diet based on 3 meals and 2 snacks per day. The purpose of this sample diet is to provide you with beginning ideas for eating a variety of healthy foods, snacks. You may find this useful for meal planning. A dietitian can provide more detailed information about a diet plan which is individualized for you. The carbohydrate choices are listed for reference and for those that use carbohydrate counting in their diabetic meal planning. Tuesday carb choices Breakfast 3 carb choices ? cup(6 fl oz) - yogurt, fruit, low-fat, no sugar added 1 cup, cubes - melons, cantaloupe, raw 1/2 small bagel (3 garry) - bagels, whole wheat 2 tbsp - ashley fernandez light cream cheese -- Snack 1 carb choices 3 cup - popcorn, lite-microwave -- Lunch 3 carb choices 1/2 cup - cheese, cottage, lowfat, 1% milkfat 1/2 cup, shredded - cheese, low-fat, cheddar or krishna 1 small (2-3/8 garry) - oranges, raw, all commercial variety 1 cup, chopped - broccoli, cooked, boiled, drained, without salt 1 potato small (-12/01 to -11/29 ... - potato, baked, flesh AND skin, without salt -- Snack 1 carb choices 1 tbsp - peanut butter, chunk style, with salt 2 cake - rice cakes, brown rice, multigrain -- Dinner 4 carb choices 1 slice, thick/large (1/2 thick) - tomatoes, reduced, ripe, raw, year round average 3 oz - beef, ground, patties, frozen, cooked, broiled, medium 2/3 cup - beans, baked, canned, with pork AND tomato sauce 1 roll - rolls, whole grain, hamburger or hotdog -- Tuesday carb choices Breakfast 3 carb choices 1 cup - milk, lowfat, fluid, 1% milkfat, with vitamin a 1/4 cup - egg substitute, liquid 1/2 cup - applesauce, canned, unsweetened, without vitamin c 1 pancake (4 garry) - pancakes, plain, dry mix, complete, prepared 2 Tablespoons sugar Free syrup -- Snack 1 carb choices 1 cracker, triple - crackers, rye, wafers, seasoned -- Lunch 3 carb choices 1 cup - milk, lowfat, fluid, 1% milkfat, with vitamin a 1 can (10.75 oz) - soup, vegetable beef, canned, condensed, commercial 1/2 cup - peaches, canned, juice pack, solids AND liquids 6 cracker - crackers, saltines (includes oyster, soda, soup) -- Snack 2 carb choices 1 cup - milk, lowfat, fluid, 1% milkfat, with vitamin a 1 slice, large - bread, raisin, toasted, enriched -- Dinner 3 carb choices 1/4 breast, bone and skin removed - chicken, broilers or fryers, breast, meat only, cooked, roas 3 stick (7-04/04 x 04/04 ) - bread sticks, plain, whole grain 2 oz - pie, pumpkin, prepared from recipe 1 serving (1.5 cups prepared) - fresh express caesar fresh salad kit -- -------- Tuesday carb choices Breakfast 3.5 carb choices 1 cup - milk, lowfat, fluid, 1% milkfat, with vitamin a 1 tsp - margarine, soft, safflower (hydrogenated AND regular) ? cup old fashioned oatmeal, prepared, cinnamon, sweetened with sugar substitute 1 small (6 to 6-7/8 long) - bananas, raw -- Snack 2 carb choices 1 oz - cheese, mozzarella, partial skim milk 1 pear, large (approx 2 per (more content not included)... Normal [facility] Leslye 09-13-2022 ROSYN Telephone ([place]) -- BOBBI GARRISON ([id number]) 1970 M Date Time Provider Department 09/13/22 DEJA VEE During your visit today, we recorded the following information about you: Shannan Napier 09/13/2022 4:22 PM Signed Pt requesting a call back with lab results - specifically sugar. [phone] Shannan Napier September 13, 2022 4:21 PM Ilda Soni PA-C 09/14/2022 8:54 AM Signed Routed to provider who saw him yesterday for this concern. Thank you Ilda Soni PA-C Allergies As of Date: 09/13/2022 (No Known Allergies) Date Reviewed: 09/13/2022 Reviewed by: Stacey Cruz MA - Fully Assessed Reason for Visit: Results [95] Prescriptions as of 01/14/2023 - fenofibrate nanocrystallized (TRICOR) 145 mg tablet TAKE 1 TABLET DAILY - atorvastatin (LIPITOR) 20 mg tablet Take 1 tablet by mouth once daily. - buPROPion XL (WELLBUTRIN XL) 150 mg 24 hr tablet Take 1 tablet by mouth every morning. - citalopram (CELEXA) 40 mg tablet Take 1 tablet by mouth once daily. - omega-3 fatty acids 1,000 mg cap Take 2 capsules by mouth once daily. - ctagqfiy-epk-CK-K-lycopene 400-20-370 mcg tab Take by mouth once daily. - vit J-srrfbjd-pyei-rutin-hb196 223-45-23-40 mg tab Take by mouth once daily. Problem List As Of Date 09/13/2022 Noted Resolved Mixed hyperlipidemia [E78.2] 12/30/2016 Depression [F32.A] 05/11/2018 ISAK (obstructive sleep apnea) [G47.33] 03/24/2020 Encounter Status:Closed by MAYANK SHANNAN on 01/14/23 Normal [facility] HbA1c (Bld)on 09-13-2022 Average glucose Estimated from glycated hemoglobin (Bld) [Mass/Vol] 143 mg/dL Normal [facility] Comment on above: Order Comment: Speci men Type: URINE SPECIMEN Ordering Facility: [facility] Address: [address] [place] [id number] Result Comment: eAG: (Estimated average glucose) is a calculated value from HgbA1c and is manufacturing sales representative of the average blood glucose level in the last 2-3 month period. Performed By: #### L [id number] #### [facility] CLIA [id number] [address] HbA1c (Bld) [Mass fraction] 6.6 % High 4.3-5.6 [facility] Comment on above: Order Comment: Speci men Type: URINE SPECIMEN Ordering Facility: [facility] Address: [address] [place] [id number] Result Comment: [place] Diabetes Association guidelines indicate that patients with HgbA1c in the range 5.7-6.4% are at increased risk for development of diabetes, and intervention by lifestyle modification may be beneficial. HgbA1c greater or equal to 6.5% is considered diagnostic of diabetes. Performed By: #### L [id number] #### [facility] CLIA [id number] [address] STATES OF [facility] Average glucose Estimated from glycated hemoglobin (Bld) [Mass/Vol] 143 mg/dL [facility] HbA1c (Bld) [Mass fraction] 6.6 % High 4.3 - 5.6 % [facility] HEMOGLOBIN A1C (POC)on 07-07 HbA1c (Bld) [Mass fraction] 6.6 % Abnormal 4.2 - 5.6 % [facility] Comprehensive metabolic 2000 panelon 06-14-2022 Albumin [Mass/Vol] 5.2 g/dL High 3.9 - 4.9 g/dL [facility] ALP [Catalytic activity/Vol] 37 U/L Low 38 - 113 U/L [facility] ALT [Catalytic activity/Vol] 47 U/L 10 - 54 U/L [facility] Anion gap [Moles/Vol] 14 mmol/L 9 - 18 mmol/L [facility] AST [Catalytic activity/Vol] 31 U/L 14 - 40 U/L [facility] Bilirubin [Mass/Vol] 0.5 mg/dL 0.2 - 1 .3 mg/dL [facility] Calcium [Mass/Vol] 10.1 mg/dL 8.5 - 10. 2 mg/dL [facility] Chloride [Moles/Vol] 102 mmol/L 97 - 10 5 mmol/L [facility] CO2 [Moles/Vol] 25 mmol/L 22 - 30 mmol/L [facility] Creatinine [Mass/Vol] 1.49 mg/dL High 0.73 - 1.22 mg/dL [facility] Estimated Glomerular Filtration Rate 56 mL/min/1.73m Low >=60 mL/min/1.7 3m [facility] Glucose [Mass/Vol] 100 mg/dL High 74 - 99 mg/dL [facility] Potassium [Moles/Vol] 4.0 mmol/L 3.7 - 5.1 mmol/L [facility] Protein [Mass/Vol] 7.9 g/dL 6.3 - 8.0 g/dL [facility] Sodium [Moles/Vol] 141 mmol/L 136 - 144 mmol/L [facility] Urea nitrogen [Mass/Vol] 18 mg/dL 9 - 24 mg/dL [facility] HbA1c (Bld)on 06-14-2022 Average glucose Estimated from glycated hemoglobin (Bld) [Mass/Vol] 157 mg/dL [facility] HbA1c (Bld) [Mass fraction] 7.1 % High 4.3 - 5.6 % [facility] XR IVPon 05-14-2022 XR IVP EXAMINATION: XR IVP HISTORY: Kidney stone ; right flank and lower quadrant pain COMPARISON: No relevant comparison available. TECHNIQUE: After obtaining patient consent a college scouting coordinator image was obtained followed by injection of 100cc of Omnipaque 300 IV contrast. Immediate nephrographic images were obtained. Corticomedullary and urographic phase images were obtained at 5, 10, 15 and 20 minutes. 15 minute oblique images were also obtained. FINDINGS: KIDNEY/URETER - RIGHT: No visible calcifications. KIDNEY/URETER - LEFT: No visible calcifications. PELVIS: No visible ureteral calcifications. Pelvic calcifications compatible with phleboliths. NEPHROGRAPHIC PHASE: Normal, symmetric size, contour, and orientation. Normal and symmetric time of contrast uptake. CORTICOMEDULLARY: No mass or abnormal appearing medulla, pyramids, or collecting system. UROGRAPHIC PHASE: Normal caliber, course, and number of ureters. BLADDER: Normal size and contour. BOWEL: No abnormal dilation or deviation. BONES: No acute abnormality. OTHER: Negative. No abnormal gaseous collections. IMPRESSION: 1. Normal IVP. Electronically authenticated by: EMMA GONSALVES Date: 2022-05-14 10:45 Normal [facility] Vital Signs Date Time Vital Sign Value Performing Clinician Facility 08-22-2023 15:13-0400 Blood Pressure Location Negro SCANL[facility] 08-22-2023 15:13-0400 Diastolic blood pressure 73 mm[Hg] Negroroxana SCANLON [facility] 08-22-2023 15:13-0400 Heart rate 68 /min Negroroxana SCANLON [facility] 08-22-2023 15:13-0400 Respiratory rate 16 /min Negro SCANLON [facility] 08-22-2023 15:13-0400 Systolic blood pressure 140 mm[Hg] Negro SCANLON [facility] 06-15-2023 15:27-0400 Diastolic blood pressure 82 mm[Hg] Frieda Henfling PA-C Work Phone: [facility] 06-15-2023 15:27-0400 Systolic blood pressure 132 mm[Hg] Frieda Henfling PA-C Work Phone: [facility] 06-15-2023 14:50-0400 Body height 190.5 cm Frieda Henfling PA-C Work Phone: [facility] 06-15-2023 14:50-0400 Body weight 112.95 kg Frieda Henfling PA-C Work Phone: [facility] 06-15-2023 14:50-0400 Heart rate 84 /min Frieda Henfling PA-C Work Phone: [facility] 06-15-2023 14:50-0400 SaO2% (BldA) [Mass fraction] 98 % Frieda Henfling PA-C Work Phone: [facility] 05-25-2023 15:29-0400 Diastolic blood pressure 77 mm[Hg] Frieda Henfling PA-C Work Phone: [facility] 05-25-2023 15:29-0400 Systolic blood pressure 136 mm[Hg] Frieda Henfling PA-C Work Phone: [facility] 05-25-2023 15:17-0400 Body height 190.5 cm Frieda Henfling PA-C Work Phone: [facility] 05-25-2023 15:17-0400 Body weight 113.85 kg Frieda Henfling PA-C Work Phone: [facility] 05-25-2023 15:17-0400 Heart rate 93 /min Frieda Henfling PA-C Work Phone: [facility] 05-25-2023 15:17-0400 SaO2% (BldA) [Mass fraction] 97 % Frieda Henfling PA-C Work Phone: [facility] 05-17-2023 09:10-0400 Body height 187.32 cm Mckinley John Other [employer] Other 05-17-2023 09:10-0400 Body mass index (BMI) [Ratio] 31.33 kg/m2 Mckinley John Other [employer] Other 05-17-2023 09:10-0400 Body weight 109.95 kg Mckinley John Other [employer] Other 05-17-2023 09:10-0400 Diastolic blood pressure 86 mm[Hg] Mckinley John Other [employer] Other 06-20-2023 09:10-0400 Respiratory rate 18 /min Mckinley John Other [employer] Other 05-17-2023 09:10-0400 SaO2% (BldA) [Mass fraction] 97 % Mckinley John Other [employer] Other 05-17-2023 09:10-0400 Systolic blood pressure 136 mm[Hg] Mckinley John Other [employer] Other 09-13-2022 14:15-0400 Body height 190.5 cm Deja Vee PA-C Work Phone: [facility] 09-13-2022 14:15-0400 Body weight 114.76 kg Deja Vee PA-C Work Phone: [facility] 09-13-2022 14:15-0400 Diastolic blood pressure 77 mm[Hg] Deja Vee PA-C Work Phone: [facility] 09-13-2022 14:15-0400 Heart rate 97 /min Deja Vee PA-C Work Phone: [facility] 09-13-2022 14:15-0400 SaO2% (BldA) [Mass fraction] 97 % Deja Vee PA-C Work Phone: [facility] 09-13-2022 14:15-0400 Systolic blood pressure 135 mm[Hg] Deja Vee PA-C Work Phone: [facility] 07-07-2022 15:35-0400 Body height 190.5 cm Frieda Henfling PA-C Work Phone: [facility] 07-07-2022 15:35-0400 Body weight 115.21 kg Frieda Henfling PA-C Work Phone: [facility] 07-07-2022 15:35-0400 Diastolic blood pressure 72 mm[Hg] Frieda Henfling PA-C Work Phone: [facility] 07-07-2022 15:35-0400 Heart rate 79 /min Frieda Henfling PA-C Work Phone: [facility] 07-07-2022 15:35-0400 SaO2% (BldA) [Mass fraction] 97 % Frieda Henfling PA-C Work Phone: [facility] 07-07-2022 15:35-0400 Systolic blood pressure 119 mm[Hg] Frieda Henfling PA-C Work Phone: [facility] 06-14-2022 14:46-0400 Body weight 114.13 kg Frieda Henfling PA-C Work Phone: [facility] 06-14-2022 14:46-0400 Diastolic blood pressure 84 mm[Hg] Frieda Henfling PA-C Work Phone: [facility] 06-14-2022 14:46-0400 Heart rate 83 /min Frieda Henfling PA-C Work Phone: [facility] 06-14-2022 14:46-0400 Systolic blood pressure 131 mm[Hg] Frieda Henfling PA-C Work Phone: [facility] Encounters Encounter Date Encounter Type Care Provider Facility Start: 12-15-2023 ambulatory Negro SCANLON [facility] ty:[id number] Start: 11-03-2023 End: 11-04-2023 ambulatory Negro SCANLON Facility:[id number] Start: 10-25-2023 End: 10-25-2023 ambulatory Sanjuana Allison Facility:[facility] Start: 10-25-2023 End: 10-25-2023 ambulatory PA-C Frieda N Henfling Work Phone: [facility] Work Phone: Start: 10-25-2023 End: 10-25-2023 Patient encounter procedure PA-C Frieda Henfling Work Phone: [facility] Start: 10-10-2023 ambulatory Negro SCANLON Facili ty:[id number] Start: 09-20-2023 End: 09-21-2023 ambulatory Negro SCANLON Facility:[id number] Start: 09-05-2023 End: 09-05-2023 ambulatory Negro Scanlon Facility:[facility] Start: 09-05-2023 End: 09-05-2023 ambulatory PA-C Frieda N Henfling Work Phone: [facility] Work Phone: Start: 09-05-2023 End: 09-05-2023 Patient encounter procedure PA-C Frieda Henfling Work Phone: [facility] [place] Work Phone: Start: 08-30-2023 Telephone encounter Frieda miller PA-C Work Phone: Internal Medicine [facility] Comment on above: Results (Urine cytol ogy report) Start: 08-22-2023 End: 08-23-2023 ambulatory Negro SCANLON Facility[place] [place] Start: 08-22-2023 End: 08-23-2023 ambulatory Negro SCANLON Facility:[facility] Start: 08-22-2023 End: 08-22-2023 Lab Drop off Negro SCANLON [facility] Start: 08-22-2023 End: 08-22-2023 Patient encounter procedure Negro SCANLON [facility] Start: 06-16-2023 Telephone encounter Frieda miller PA-C Work Phone: Internal [facility] Comment on above: Results Start: 06-15-2023 Encounter for genera l adult medical examination without abnormal findings DEJA VEE [facility] Start: 06-15-2023 End: 06-15-2023 ambulatory FRIEDA N HENFLING Facility:[facility] Start: 06-15-2023 End: 06-15-2023 Patient encounter procedure Frieda Forrest PA-C Work Phone: [facility] Comment on above: Well adult exam (Joann doyle Dx); Need for vaccination; Type 2 diabetes mellitus without complication, without long-term current use of insulin (HCC) Start: 06-15-2023 End: 06-15-2023 Patient encounter status Frieda Forrest PA-C Work Phone: [facility] Work Phone: Start: 05-25-2023 End: 05-25-2023 ambulatory FRIEDA FORREST Facility:[facility] Start: 05-25-2023 End: 05-25-2023 Patient encounter procedure Frieda Forrest PA-C Work Phone: [facility] Comment on above: Lumbar back pain (Pr imary Dx); Type 2 diabetes mellitus without complication, without long-term current use of insulin (HCC); Well adult exam; Hyperlipidemia, unspecified hyperlipidemia type; Weak urinary stream Start: 05-25-2023 End: 05-25-2023 Patient encounter status Frieda Forrest PA-C Work Phone: [facility] Start: 05-20-2023 End: 05-20-2023 ambulatory Mckinley John Other [employer] Other Start: 05-20-2023 Telephone encounter Mckinley Dora [facility] Start: 05-17-2023 End: 05-17-2023 ambulatory Mckinley John Other [employer] Other Start: 05-17-2023 Office outpatient vi sit 15 minutes Mckinley Dora [facility] Start: 01-03-2023 Refill Frieda Partida ng PA-C Work Phone: [facility] Comment on above: Refill Request Start: 12-08-2022 ambulatory Negro Brenner ty:[facility] Start: 09-13-2022 End: 09-13-2022 ambulatory DEJA VEE Facility:[facility] Start: 09-13-2022 End: 09-13-2022 Patient encounter procedure Deja Vee PA-C Work Phone: [facility] Comment on above: Adult onset diabetes mellitus (HCC) (Primary Dx) Start: 07-07-2022 End: 07-07-2022 Patient encounter procedure Frieda Schreibering PA-C Work Phone: [facility] Comment on above: Kidney stone (Primar y Dx); Type 2 diabetes mellitus without complication, without long-term current use of insulin (HCC) Start: 06-23-2022 Telephone encounter Frieda Rowland nfling PA-C Work Phone: [facility] Comment on above: Results Start: 06-21-2022 Telephone encounter Frieda Rowland nfling PA-C Work Phone: [facility] Comment on above: Medication Problem Start: 06-18-2022 Refill Friedapavithra Schreiberi ng PA-C Work Phone: [facility] Comment on above: Refill Request Start: 06-17-2022 Refill Frieda Schreiberi ng PA-C Work Phone: [facility] Comment on above: Refill Request Start: 06-14-2022 End: 06-14-2022 Patient encounter procedure Frieda Schreibering PA-C Work Phone: [facility] Comment on above: Well adult exam (Joann doyle Dx); Kidney stone; Impaired fasting glucose; Weak urinary stream Start: 06-14-2022 End: 06-14-2022 Patient encounter status Frieda Schreibering PA-C Work Phone: [facility] Start: 06-14-2022 Telephone encounter Frieda Rowland nfling PA-C Work Phone: [facility] Comment on above: Results Start: 05-14-2022 End: 05-15-[address] PINO [facility] Facility: Start: 03-20-2022 Refill Frieda marcelino PA-C Work Phone: Internal Medicine [facility] Comment on above: Refill Request Procedures Date Procedure Procedure Detail Performing Clinician Start: 09-05-2023 Computed tomography of abdomen and pelvis with contrast PA-C Frieda Forrest Work Phone: Start: 07-07-2022 Hemoglobin A1c/Hemoglobin.total in Blood Frieda Forrest PA-C Work Phone: Start: 11-04-2016 Extracorporeal shock wave lithotripsy of calculus of kidney Negro SCANLON Extraction of wisdom tooth P hanhck ELVA Procedure on hand Negro CLAY Procedure on knee Negro CLAY Surgical procedure o n left eye region Negro SCANLON Plan of Treatment Date Care Activity Detail Author Start: 09-12-2027 Urine microalbumin profile [facility] Start: 09-24-2025 LIPID SCREEN LIPID SCREEN [facility] Start: 07-07-2025 DIABETES SCREEN DIABETES SCREEN [facility] Start: 06-14-2025 DIABETES SCREEN DIABETES SCREEN [facility] Start: 08-30-2024 COLOGUARD (FIT-DNA) COLOGUARD (FIT-D NA) [facility] Start: 08-30-2024 COLORECTAL CANCER SCREENING COLORECTAL CANCER SCREENING [facility] Start: 08-06-2024 DIABETES SCREEN DIABETES SCREEN [facility] Start: 06-15-2024 3 comp foot exam completed DIABETIC FOOT EXAM [facility] Start: 06-15-2024 ANNUAL PCP TEAM PAPER BOX MAKER KERRY DISEASE VISIT ANNUAL PCP TEAM CHRONIC DISEASE VISIT [facility] Start: 06-15-2024 COVID-19 VACCINE (4 - Moderna series) COVID-19 VACCINE (4 - Moderna series) [facility] Comment on above: Postponed from 01/02 (Declined at this time) Start: 06-15-2024 Hepatitis B screening URINE AL BUMIN:CREATININE RATIO [facility] Start: 06-15-2024 Hepatitis B surface antibody level LDL CHOLESTEROL [facility] Start: 06-15-2024 PNEUMOCOCCAL (1 - PCV) PNEUMOCOCCAL (1 - PCV) [facility] Comment on above: Postponed from 04/18 (Declined at this time) Start: 06-15-2024 Pneumococcal vaccination Pneumococcal Vaccine (1 - PCV) [facility] Comment on above: Postponed from 04/18 (Declined at this time) Start: 05-25-2024 ANNUAL PCP TEAM PAPER BOX MAKER KERRY DISEASE VISIT ANNUAL PCP TEAM CHRONIC DISEASE VISIT [facility] Start: 05-04-2024 Hepatitis B surface antibody level LDL CHOLESTEROL [facility] Start: 01-27-2024 Hepatitis C antibody , confirmatory test DILATED RETINAL EXAM [facility] Start: 12-16-2023 End: 02-15-2024 Comprehensive metabolic 2000 panel - Serum or Plasma COMP METABOLIC PANEL Lab Routine Type 2 diabetes mellitus without complication, without long-term current use of insulin (HCC) Expected: 12/16/2023 (Approximate), Expires: 02/15/2024 [facility] Work Phone: Comment on above: Expected: 12/16/2023 (Approximate), Expires: 02/15/2024 Start: 12-16-2023 End: 02-15-2024 Hemoglobin A1c in Blood HGB A1C Lab Routine Type 2 diabetes mellitus without complication, without long-term current use of insulin (HCC) Expected: 12/16/2023 (Approximate), Expires: 02/15/2024 [facility] Work Phone: Comment on above: Expected: 12/16/2023 (Approximate), Expires: 02/15/2024 Start: 12-16-2023 Hemoglobin A1c/Hemoglobin.total in Blood HBA1C [facility] Start: 09-13-2023 ANNUAL PCP TEAM PAPER BOX MAKER KERRY DISEASE VISIT ANNUAL PCP TEAM CHRONIC DISEASE VISIT [facility] Start: 08-10-2023 SHINGRIX VACCINE (2 of 2) SHINGRIX VACCINE (2 of 2) [facility] Start: 07-29-[address] [facility] Start: 05-25-2023 End: 07-25-2023 ALBUMIN/CREAT RATIO RND UR ALBUMIN/CREAT RATIO RND UR Lab Routine Type 2 diabetes mellitus without complication, without long-term current use of insulin (HCC) Expected: 05/25/2023 (Approximate), Expires: 07/25/2023 [facility] Work Phone: Comment on above: Expected: 05/25/2023 (Approximate), Expires: 07/25/2023 Start: 05-25-2023 End: 07-25-2023 CBC W Auto Differential panel - Blood CBC + DIFF Lab Routine Well adult exam Expected: 05/25/2023 (Approximate), Expires: 07/25/2023 [facility] Work Phone: Comment on above: Expected: 05/25/2023 (Approximate), Expires: 07/25/2023 Start: 05-25-2023 End: 07-25-2023 Comprehensive metabolic 2000 panel - Serum or Plasma COMP METABOLIC PANEL Lab Routine Well adult exam Expected: 05/25/2023 (Approximate), Expires: 07/25/2023 [facility] Work Phone: Comment on above: Expected: 05/25/2023 (Approximate), Expires: 07/25/2023 Start: 05-25-2023 End: 07-25-2023 Hemoglobin A1c in Blood HGB A1C Lab Routine Type 2 diabetes mellitus without complication, without long-term current use of insulin (HCC) Expected: 05/25/2023 (Approximate), Expires: 07/25/2023 [facility] Work Phone: Comment on above: Expected: 05/25/2023 (Approximate), Expires: 07/25/2023 Start: 05-25-2023 End: 07-25-2023 Lipid 1996 panel - Serum or Plasma LIPID PANEL BASIC Lab Routine Hyperlipidemia, unspecified hyperlipidemia type Expected: 05/25/2023 (Approximate), Expires: 07/25/2023 [facility] Work Phone: Comment on above: Expected: 05/25/2023 (Approximate), Expires: 07/25/2023 Start: 05-25-2023 End: 07-25-2023 Prostate specific Ag [Mass/volume] in Serum or Plasma PSA/PROSTSPECAG DIAG Lab Routine Weak urinary stream Expected: 05/25/2023 (Approximate), Expires: 07/25/2023 [facility] Work Phone: Comment on above: Expected: 05/25/2023 (Approximate), Expires: 07/25/2023 Start: 05-25-2023 End: 07-25-2023 Thyrotropin [Units/volume] in Serum or Plasma TSH BLD Lab Routine Well adult exam Expected: 05/25/2023 (Approximate), Expires: 07/25/2023 [facility] Work Phone: Comment on above: Expected: 05/25/2023 (Approximate), Expires: 07/25/2023 Start: 05-25-2023 End: 07-25-2023 URINALYSIS, REFLEX MICROSCOPIC URINALYSIS, REFLEX MICROSCOPIC Lab Routine Well adult exam Expected: 05/25/2023 (Approximate), Expires: 07/25/2023 [facility] Work Phone: Comment on above: Expected: 05/25/2023 (Approximate), Expires: 07/25/2023 Start: 03-14-2023 Hemoglobin A1c/Hemoglobin.total in Blood HBA1C [facility] Start: 09-14-2022 End: 11-14-2022 Comprehensive metabolic 2000 panel - Serum or Plasma COMP METABOLIC PANEL Lab Routine Type 2 diabetes mellitus without complication, without long-term current use of insulin (HCC) Expected: 09/14/2022 (Approximate), Expires: 11/14/2022 [facility] Work Phone: Comment on above: Expected: 09/14/2022 (Approximate), Expires: 11/14/2022 Start: 09-14-2022 End: 11-14-2022 Hemoglobin A1c in Blood HGB A1C Lab Routine Type 2 diabetes mellitus without complication, without long-term current use of insulin (HCC) Expected: 09/14/2022 (Approximate), Expires: 11/14/2022 [facility] Work Phone: Comment on above: Expected: 09/14/2022 (Approximate), Expires: 11/14/2022 Start: 07-29-2022 Influenza vaccination INFLUENZA (#1) [facility] Start: 06-14-2022 End: 08-14-2022 Prostate specific Ag [Mass/volume] in Serum or Plasma [facility] Work Phone: Comment on above: Expected: 06/14/2022 , Expires: 08/14/2022 Start: 03-08-2022 COVID-19 VACCINE (4 - Booster for Moderna series) COVID-19 VACCINE (4 - Booster for Moderna series) [facility] Start: 01-02-2022 COVID-19 VACCINE (4 - Booster for Moderna series) COVID-19 VACCINE (4 - Booster for Moderna series) [facility] Start: 09-24-2021 Hepatitis B surface antibody level LDL CHOLESTEROL [facility] Start: 2021 SHINGRIX VACCINE (1 of 2) SHINGRIX VACCINE (1 of 2) [facility] Start: 07-03-2020 Hepatitis B screening URINE AL BUMIN:CREATININE RATIO [facility] Start: 2016 Colonoscopy COLONOSCOPY [facility] Start: [address] COLONOGRAPHY [facility] Start: 2016 FECAL OCCULT BLOOD FECAL OCCULT BLOO D [facility] Start: 2016 SIGMOIDOSCOPY SIGMOIDOSCOPY [facility] Start: 1981 3 comp foot exam completed DIABETIC FOOT EXAM [facility] Start: 1981 Hepatitis C antibody , confirmatory test DILATED RETINAL EXAM [facility] Start: 1977 PNEUMOCOCCAL (1 - PCV) PNEUMOCOCCAL (1 - PCV) [facility] Start: 1976 COVID-19 VACCINE (1) COVID-19 VACCIN E (1) [facility] Start: 1971 HEPATITIS B (1 of 3 - 3-dose series) HEPATITIS B (1 of 3 - 3-dose series) [facility] CALCIUM 24 HR URINE CALCIUM 24 H R URINE Lab Routine Impaired fasting glucose Ordered: 06/14/2022 [facility] Work Phone: Comment on above: Ordered: 06/14/2022 Citrate [Mass/time] in 24 hour Urine CITRATE 24 HR URINE Lab Routine Impaired fasting glucose Ordered: 06/14/2022 [facility] Work Phone: Comment on above: Ordered: 06/14/2022 CREATININE 24 HR UR CREATININE 2 4 HR UR Lab Routine Impaired fasting glucose Ordered: 06/14/2022 [facility] Work Phone: Comment on above: Ordered: 06/14/2022 End: 07-15-2024 Ct abdomen & pelvis w/o contrst 1/> body re CT UROGRAM WO/W IVCON Radiology Routine Hematuria, unspecified type 1 Occurrences starting 06/16/2023 until 07/15/2024 [facility] Work Phone: Comment on above: 1 Occurrences starti ng 06/16/2023 until 07/15/2024 HB A1C B/O HB A1C B/O Lab R outine Type 2 diabetes mellitus without complication, without long-term current use of insulin (HCC) Ordered: 07/07/2022 [facility] Work Phone: Comment on above: Ordered: 07/07/2022 Oxalate [Mass/time] in 24 hour Urine OXALATE 24 HR URINE Lab Routine Impaired fasting glucose Ordered: 06/14/2022 [facility] Work Phone: Comment on above: Ordered: 06/14/2022 Sodium [Moles/time] in 24 hour Urine SODIUM 24 HR URINE Lab Routine Impaired fasting glucose Ordered: 06/14/2022 [facility] Work Phone: Comment on above: Ordered: 06/14/2022 STONE PANEL URINE STONE PANEL UR INE Lab Routine Impaired fasting glucose Ordered: 06/14/2022 [facility] Work Phone: Comment on above: Ordered: 06/14/2022 Urate [Mass/time] in 24 hour Urine URIC ACID 24 HR UR Lab Routine Impaired fasting glucose Ordered: 06/14/2022 [facility] Work Phone: Comment on above: Ordered: 06/14/2022 [facility] Immunizations Immunization Date Immunization Notes Care Provider Clyde hurd 06-15-2023 zoster vaccine recombinant Frieda Henfling PA-C Work Phone: [facility] 08-21-2022 influenza, injectabl e, quadrivalent, preservative free Frieda Henfling PA-C Work Phone: [facility] 08-21-2022 influenza virus vacc ine, unspecified formulation Frieda Henfling PA-C Work Phone: [facility] 08-06-2021 influenza, injectabl e, quadrivalent, contains preservative Frieda Henfling PA-C Work Phone: [facility] 09-24-2020 influenza, injectabl e, quadrivalent, contains preservative Frieda Henfling PA-C Work Phone: [facility] 09-13-2018 influenza, injectabl e, quadrivalent, preservative free Frieda Henfling PA-C Work Phone: [facility] 09-12-2017 tetanus toxoid, redu alessandro diphtheria toxoid, and acellular pertussis vaccine, adsorbed Frieda Henfling PA-C Work Phone: [facility] 08-23-2017 influenza, injectabl e, quadrivalent, contains preservative Frieda Henfling PA-C Work Phone: [facility] 09-28-2016 influenza, injectabl e, quadrivalent, contains preservative Frieda Henfling PA-C Work Phone: [facility] 09-28-2016 influenza, seasonal, injectable Frieda Henfling PA-C Work Phone: [facility] 05-25-2016 tetanus and diphther ia toxoids, adsorbed, preservative free, for adult use (5 Lf of tetanus toxoid and 2 Lf of diphtheria toxoid) Frieda Henfling PA-C Work Phone: [facility] 08-18-2015 influenza, injectabl e, quadrivalent, contains preservative Frieda Henfling PA-C Work Phone: [facility] 08-18-2015 influenza, seasonal, injectable Frieda Forrest PA-C Work Phone: [facility] Payers Date Payer Category Payer Self-pay [id number] 2012 Unknown MMO MMO [employer] [id number] 2012-Present [phone] [address] [place] [address] PPO [id number] 2012 Unknown [id number] 1971 Unknown [id number] 1971 Unknown [id number] 1971 Unknown [id number] 1971 Unknown [id number] 1971 Unknown [id number] 1971 Unknown [id number] 1959 Unknown [id number] Unknown [id number] Unknown [id number] Social History Date Type Detail Facility Start: 08-18-2015 End: 07-07-2022 Tobacco smoking status NHIS Ex-smoker [facility] Start: 08-18-2015 End: 07-07-2022 Tobacco use and exposure User of smokeless tobacco [facility] History of tobacco use Snuff User [facility] Start: 09-24-2020 End: 06-15-2023 Alcohol intake Current drinker of alcohol (finding) [facility] Start: 1970 Sex Assigned At Not on file [facility] Start: 06-04-2022 End: 09-13-2022 Exposure to SARS-CoV-2 (event) Not sure [facility] History of tobacco use Current smoker [facility] Start: 05-25-2023 End: 06-15-2023 Sex Assigned At [facility] Start: 05-25-2023 End: 06-15-2023 History of Social function [facility] Adult Depression Screening Assessment 0 [facility] Start: 05-08-2022 Tobacco smoking stat us MEIS Never smoked tobacco (finding) [facility] Start: 1970 Sex Assigned At Male F [facility] Functional Status Date Assessment Result Facility 08-22-2023 Functional Status N/A [facility] Clinical Notes 03-22-2022 to 11-01-2023 Telephone Encounter - Sherman Aggarwal MA - 08/30/2023 9:31 AM EDTTelephone Encounter - Sherman Aggarwal MA - 06/30/2023 2:01 PM EDTTelephone Encounter - Maru Varghese - 06/29/2023 11:43 AM EDT Note Date & Type Note Facility 11-01-2023 Note [id number] [facility] 08-30-2023 Miscellaneous Notes Received Urine reports from [facility]. Placed in pcp inbox for review. Sherman Aggarwal MA August 30, 2023 9:32 AM documented in this encounter [facility] 08-22-2023 Note Chief Complaint Referral *Hematuria HPI Staff 53 yo male referred by MIRLANDE Velazquez for hematuria. Last seen in our office 05/14/22 by PRW. Previous Dx: kidney stones, ureteral stone, hydroureter. Plan at that time was to obtain IVP & possibly schedule ESWL. IVP 05/14/22 (NEG) Metabolic Work Up 06/21/22 KUB 08/26/22. Pt had cancelled his yearly appt. Did not RS. Here today due to microscopic hematuria. Blood showed on UA ran at employment physical, then again at PCP office. Denies visible blood in urine. Does have Hx Kidney Stone. Denies current flank pain. Did have some back pain last week. Denies all urinary concerns at this time. PSA 06/15/23- 1.08 No recent imaging. History of Present Illness Tests reviewed: reviewed UA, referral records I have reviewed the previous health record information and history for this patient from MIRLANDE Velazquez . I have reviewed and verified the staff HPI to be accurate for this encounter. There have been no associated fever, chills, flank pain, or blood in the urine. Denies any urinary infections since last encounter. Review of Systems PHQ Score Initial Depression Screen Score: 0 ROS - Provider Constitutional: denies weight loss, denies hot flashes. Eyes: denies eye problems. Gastrointestinal: denies nausea, denies vomiting. Cardiovascular: denies chest pain or angina. Integumentary: no dryness Musculoskeletal: denies musculoskeletal symptoms. ENMT: denies otolaryngeal symptoms. Respiratory: no shortness of breath. Heme/Lymph: denies easy bleeding tendency, denies easy bruising tendency. Psychiatric: no confusion, no anxiety. Genitourinary: See HPI. Physical Exam Vitals & Measurements HR: 68(Peripheral) RR: 16 BP: 140/73 HT: 74 in HT: 188 cm WT: 113.6 kg WT: 249.92 lb BMI: 32.14 General Appearance: alert, no distress, well nourished, well developed male. Head: normocephalic . Eyes: normal orbit and globe. ENMT: normal examination of external ears. Chest: Lungs CTA, respirations non labored. Cardiovascular: regular rate and rhythm. Abdomen: soft, non distended, no tenderness, no mass or organomegaly, no hernia. Genitourinary: normal scrotum, normal testes, normal urethra, normal epididymis, normal vas deferens/spermatic cord. Flank Pain: none. Bladder: nonpalpable. Penis: normal shaft, normal glans. Lymph Nodes: unremarkable palpation of the cervical area. Skin: warm, dry, no bruising. Psychiatric: cooperative, affect appropriate for age, normal judgement, euthymic mood. Assessment/Plan Re-referred due to microhematuria. Pt here with his today. Pt is adopted, uncertain of biological family hx. 1. Kidney stones (N20.0: Calculus of kidney) CT AP wo con 05/08/22 [facility] - 8 mm and 6 mm calculi RLP. 2 mm calcific density in or adjacent to the proximal to mid R ureter, finding is unchanged and is likely extraurethral. 17 mm calculus either at the R UVJ of in the urinary bladder. Mild R hydroureteronephrosis. Urinary bladder is mildly thickened. Prostate is enlarged. XR IVP 05/14/22 [facility] - Neg IVP. 24hr urine ordered by PCP 06/11/22. KUB 08/26/22 [facility] - Punctate R nephrolithiasis remonstrated. when pt is stone free, will do full metabolic w/u Reviewed imaging with pt. 2. Asymptomatic microscopic hematuria (R31.21: Asymptomatic microscopic hematuria) UA today shows small blood and trace leuks. No gross hematuria. No flank or abdominal pain. Discussed options. The patient is aware that a distinct etiology of the hematuria may not be clear upon conclusion of the workup. Will initiate hematuria workup to include upper urinary tract imaging, as well as evaluation of the urinary cells with urine cytology and possible a FISH test. A cystoscopy will be scheduled to rule out lower urinary tract pathology. The rationale for this workup has been discussed, and all questions have been answered. Informed consent will be obtained. Prophylactic antibiotics will be given. -Schedule CT stone protocol. -Will send urine for cytol today. Will schedule cysto. The risks and benefits for cystoscopy have been discussed. The risks include bleeding, infection, and irritation of the bladder and urinary channel, among others. The patient, after being informed of procedural details and after questions have been answered, wishes to proceed. Full informed consent has been obtained. Will order Local anesthesia. Prophylactic abx sent to [facility]. 3. Screening PSA (prostate specific antigen) (Z12.5: Encounter for screening for malignant neoplasm of prostate) PSA: 06/15/23 - 1.08. 4. Renal cyst (N28.1: Cyst of kidney, acquired) CT AP wo con 05/08/22 [facility] [place] - Small cysts R kidney. Follow-up With When Contact Information Negro SCANLON MD, URL [facility] [address], [place] [address] [phone] Additional Instructions: schedule cysto, CTU Patient Education Dietary Guidelines to Help Prevent Kidney Stones I, jorge Eddy (more content not included)... [facility] Comment on above: Result Comment: Elec tronically Signed By: Negro SCANLON MD\.br\Date and Time Signed: 08/22/23 15:55 EDT\.br\Electronically Co-Signed By: Florence Kong\.br\Date and Time Co-Signed: 08/22/23 15:53 EDT 08-22-2023 Evaluation + Plan note Diagnostic Tests PendingUrine Cytology ([facility]) 08/22/23 [facility] 08-22-2023 Hospital Discharg e instructions Patient Education 08/22/2023 08:38:17 Dietary Guidelines to Help Prevent Kidney Stones Dietary Guidelines to Help Prevent Kidney Stones Kidney stones are deposits of minerals and salts that form inside your kidneys. Your risk of developing kidney stones may be greater depending on your diet, your lifestyle, the medicines you take, and whether you have certain medical conditions. Most people can lower their chances of developing kidney stones by following the instructions below. Your dietitian may give you more specific instructions depending on your overall health and the type of kidney stones you tend to develop. What are tips for following this plan? Reading food labels Choose foods with no salt added or low-salt labels. Limit your salt (sodium) intake to less than 1,500 mg a day. Choose foods with calcium for each meal and snack. Try to eat about 300 mg of calcium at each meal. Foods that contain 200 500 mg of calcium a serving include: ?8 oz (237 mL) of milk, furamau-trumpljclrnb-tmulb milk, and calcium-fortifiedfruit juice. Calcium-fortified means that calcium has been added to these drinks. ?8 oz (237 mL) of kefir, yogurt, and soy yogurt. ?4 oz (114 g) of tofu. ?1 oz (28 g) of cheese. ?1 cup (150 g) of dried figs. ?1 cup (91 g) of cooked broccoli. ?One 3 oz (85 g) can of sardines or mackerel. Most people need 1,000 1,500 mg of calcium a day. Talk to your dietitian about how much calcium is recommended for you. Shopping Buy plenty of fresh fruits and vegetables. Most people do not need to avoid fruits and vegetables, even if these foods contain nutrients that may contribute to kidney stones. When shopping for convenience foods, choose: ?Whole pieces of fruit. ?Pre-made salads with dressing on the side. ?Low-fat fruit and yogurt smoothies. Avoid buying frozen meals or prepared deli foods. These can be high in sodium. Look for foods with live cultures, such as yogurt and kefir. Choose high-fiber grains, such as whole-wheat breads, oat bran, and wheat cereals. Cooking Do not add salt to food when cooking. Place a salt shaker on the table and allow each person to add his or her own salt to taste. Use vegetable protein, such as beans, textured vegetable protein (TVP), or tofu, instead of meat in pasta, casseroles, and soups. Meal planning Eat less salt, if told by your dietitian. To do this: ?Avoid eating processed or pre-made food. ?Avoid eating fast food. Eat less animal protein, including cheese, meat, poultry, or fish, if told by your dietitian. To do this: ?Limit the number of times you have meat, poultry, fish, or cheese each week. Eat a diet free of meat at least 2 days a week. ?Eat only one serving each day of meat, poultry, fish, or seafood. ?When you prepare animal protein, cut pieces into small portion sizes. For most meat and fish, one serving is about the size of the palm of your hand. Eat at least five servings of fresh fruits and vegetables each day. To do this: ?Keep fruits and vegetables on hand for snacks. ?Eat one piece of fruit or a handful of berries with breakfast. ?Have a salad and fruit at lunch. ?Have two kinds of vegetables at dinner. Limit foods that are high in a substance called oxalate. These include: ?Spinach (cooked), rhubarb, beets, sweet potatoes, and Panamanian chard. ?Peanuts. ?Potato chips, scottish fries, and baked potatoes with skin on. ?Nuts and nut products. ?Chocolate. If you regularly take a diuretic medicine, make sure to eat at least 1 or 2 servings of fruits or vegetables that are high in potassium each day. These include: ?Avocado. ?Banana. ?[place], prune, carrot, or tomato juice. ?Baked potato. ?Cabbage. ?Beans and split peas. Lifestyle Drink enough fluid to keep your urine pale yellow. This is the most important thing you can do. Spread your fluid intake throughout the day. If you drink alcohol: ?Limit how much you use to: ?0 1 drink a day for women who are not . ?0 2 drinks a day for men. ?Be aware of how much alcohol is in your drink. In the [place] one drink equals one 12 oz bottle of beer (355 mL), one 5 oz glass of wine (148 mL), or one 1 oz glass of hard liquor (44 mL). Lose weight if told by your health care provider. Work with your dietitian to find an eating plan and weight loss strategies that work best for you. General information Talk to your health care provider and dietitian about taking daily supplements. You may be told the following depending on your health and the cause of your kidney stones: ?Not to take supplements with vitamin C. ?To take a calcium supplement. ?To take a daily probiotic supplement. ?To take other supplements such as magnesium, fish oil, or vitamin B6. Take ebhk-ktx-lyhnpfa and prescription medicines only as told by your health care provider. These include supplements. What foods should I limit? Limit your intake of the following foods, or eat them as told by your dietitian. Vegetables Spinach. Rhubarb. Beets. Canned vegetables. Pickles. Olives. Baked potatoes with skin. Grains Wheat bran. Baked goods. Salted crackers. Cereals high in sugar. Meats and other proteins Nuts. Nut butters. Large portions of meat, poultry, or fish. Salted, precooked, or cured meats, such as sausages, meat loaves, and hot dogs. Dairy Cheese. Beverages Regular soft drinks. Regular vegetable juice. Seasonings and condiments Seasoning blends with salt. Salad dressings. Soy sauce. Ketchup. Barbecue sauce. Other foods Canned soups. Canned pasta sauce. Casseroles. Pizza. Lasagna. Frozen meals. Potato chips. Welsh fries. The items listed above may not be a complete list of foods and beverages you should limit. Contact a dietitian for more information. What foods should I avoid? Talk to your dietitian about specific foods you should avoid based on the type of kidney stones you have and your overall health. Fruits Grapefruit. The item listed above may not be a complete list of foods and beverages you should avoid. Contact a dietitian for more information. Summary Kidney stones are deposits of minerals and salts that form inside your kidneys. You can lower your risk of kidney stones by making changes to your diet. The most important thing you can do is drink enough fluid. Drink enough fluid to keep your urine pale yellow. Talk to your dietitian about how much calcium you should have each day, and eat less salt and animal protein as told by your dietitian. This information is not intended to replace advice given to you by your health care provider. Make sure you discuss any questions you have with your health care provider. Document Revised: 07/26/2022 Document Reviewed: 07/26/2022 [employer] Patient Education 2022 [employer]. Follow Up Care 06/22/2023 09:21:45 With:ELVA RODRÍGUEZ, Negro Vang, URL Address: [facility] [address] [place] [address]- [phone] When: Unknown [facility] 06-30-2023 Miscellaneous Notes Faxed last OV and order with demographics to Dr. Sky's office. Patient informed. Sherman Aggarwal MA June 30, 2023 2:02 PM Patient is seeing urology outside of the clinic He is seeing urologist Dr Scanlon in [place] and they were told the office needs the consult and records Please advise - patient only had phone number of office [phone] Please contact the patient to schedule an appointment. Appointment specifications include: WHY does the patient need to be seen? Hematuria, unspecified type [R31.9] WHO should the patient schedule the appointment with? ct WHAT specific type of appointment is needed? ct WHEN should the patient be seen? First available appointment WHERE should the patient be seen? In Office Please contact the patient to schedule an appointment. Appointment specifications include: WHY does the patient need to be seen? Hematuria, unspecified type [R31.9] WHO should the patient schedule the appointment with? First provider available WHAT specific type of appointment is needed? Ct urogram WHEN should the patient be seen? First available appointment WHERE should the patient be seen? In Office Called and left message Please contact the patient to schedule an appointment. Appointment specifications include: WHY does the patient need to be seen? Ct urorgram WHO should the patient schedule the appointment with? Physician only WHAT specific type of appointment is needed? Follow-Up WHEN should the patient be seen? First available appointment WHERE should the patient be seen? In Office He hasn't scheduled - please call him to set up CT urogram, urology appointment. Frieda Forrest PA-C I called patient to discuss results - he is advised to call back to schedule CT urogram and urology referral. Frieda Forrest PA-C documented in this encounter [facility] 06-15-2023 Note HNO ID: [id number] Author: Frieda Forrest PA-C Service: ? Author Type: Physician Brusher Warp Type: Progress Notes Filed: 06/15/2023 4:28 PM Note Text: Subjective HPI Patient presents today for yearly appointment due to HTN, HLD, LBP, kdiney stones, DM2. HTN -patient reports his BP was recently elevated on work physical. Not checking home readings. Is trying to follow healthy diet down 2 pounds. Denies CP, SOB, PND, orthopnea, and syncope. HLD -patient is compliant with Lipitor, Tricor. No side effects of medication. Patient was treated for low back pain 04/2023. This is resolved. Patient does have history of kidney stones, but last about a year ago. He denies any gross hematuria, pain with urination. UA with physical did show blood 2+/protein in urine. DM2-not currently on medications. Patient due to limiting pop from diet. A1c pending. Consents to Shingrix vaccine. Declines Hep B. Review of Systems All other systems reviewed and are negative. Past Medical History: PAST MEDICAL HISTORY Diagnosis Date Depressive disorder, not elsewhere classified Mixed hyperlipidemia ISAK (obstructive sleep apnea) compliant Type 2 diabetes mellitus without complication, without long-term current use of insulin ([facility]) Past Surgical History: PAST SURGICAL HISTORY Procedure Laterality Date AMP /11/29 JT/PHALANX W/NEURECT W/DIR CLSR Left partial, mid finger PAST SURGICAL HISTORY OF right knee surgery to insert pins PAST SURGICAL HISTORY OF left eye surgery PAST SURGICAL HISTORY OF wisdom tooth surgery Family History: FAMILY HISTORY Adopted: Yes Social History: Social History Tobacco Use Smoking status: Former Smokeless tobacco: Current Types: Snuff Substance Use Topics Alcohol use: Yes Drug use: No Current Medications: cyclobenzaprine (FLEXERIL) 10 mg tablet, Take by mouth three times daily., Disp: , Rfl: omega-3 fatty acids 1,000 mg cap, Take 2 capsules by mouth once daily., Disp: , Rfl: syfwldaa-xjg-AP-K-lycopene 400-20-370 mcg tab, Take by mouth once daily., Disp: , Rfl: vit S-vhpkjys-hyul-rutin-hb196 488-74-49-40 mg tab, Take by mouth once daily., Disp: , Rfl: fenofibrate nanocrystallized (TRICOR) 145 mg tablet, Take 1 tablet by mouth once daily., Disp: 90 tablet, Rfl: 3 atorvastatin (LIPITOR) 20 mg tablet, Take 1 tablet by mouth once daily., Disp: 90 tablet, Rfl: 3 buPROPion XL (WELLBUTRIN XL) 150 mg 24 hr tablet, Take 1 tablet by mouth every morning., Disp: 90 tablet, Rfl: 3 citalopram (CELEXA) 40 mg tablet, Take 1 tablet by mouth once daily., Disp: 90 tablet, Rfl: 3 [DISCONTINUED] predniSONE (DELTASONE) 10 mg tablet, Take 20 mg by mouth twice daily., Disp: , Rfl: [DISCONTINUED] fenofibrate nanocrystallized (TRICOR) 145 mg tablet, TAKE 1 TABLET DAILY, Disp: 90 tablet, Rfl: 3 [DISCONTINUED] atorvastatin (LIPITOR) 20 mg tablet, Take 1 tablet by mouth once daily., Disp: 90 tablet, Rfl: 3 [DISCONTINUED] buPROPion XL (WELLBUTRIN XL) 150 mg 24 hr tablet, Take 1 tablet by mouth every morning., Disp: 90 tablet, Rfl: 3 [DISCONTINUED] citalopram (CELEXA) 40 mg tablet, Take 1 tablet by mouth once daily., Disp: 90 tablet, Rfl: 3 No facility-administered encounter medications on file as of 06/15/2023. Allergies: ALLERGIES No Known Allergies Vitals: BP 132/82 Pulse 84 Ht 6' 3 (1.91m) Wt 249 lb (112.9kg) SpO2 98% BMI 31.12 kg/(m2). Objective Physical Exam HENT: Head: Normocephalic and atraumatic. Cardiovascular: Rate and Rhythm: Normal rate and regular rhythm. Heart sounds: Normal heart sounds. Pulmonary: Effort: Pulmonary effort is normal. Breath sounds: Normal breath sounds. Musculoskeletal: Right lower leg: No edema. Left lower leg: No edema. Skin: General: Skin is warm and dry. Neurological: Mental Status: He is alert. Gait: Gait is intact. Psychiatric: Mood and Affect: Mood and affect normal. ASSESSMENT/PLAN: 1. Well adult exam - ICD9: V70.0, ICD10: Z00.00 (primary diagnosis) Preventive medicine appropriate for patient's age and gender reviewed in office today. Reviewed complete labs with patient. Will obtain A1C, urine albumin/creat ratio and notify with results. Discussed the importance of routine exercise and low fat diet. UA through work with 2+ RBCs. Will recheck and consider urology if persistent. Need for vaccination - ICD9: V05.9, ICD10: Z23 - ZOSTER VACCINE, RECOMBINANT (SHINGRIX) Frieda Forrest PA-C [facility] 06-15-2023 History of Presen t illness Narrative Subjective HPI Patient presents today for yearly appointment due to HTN, HLD, LBP, kdiney stones, DM2. HTN -patient reports his BP was recently elevated on work physical. Not checking home readings. Is trying to follow healthy diet down 2 pounds. Denies CP, SOB, PND, orthopnea, and syncope. HLD -patient is compliant with Lipitor, Tricor. No side effects of medication. Patient was treated for low back pain 04/2023. This is resolved. Patient does have history of kidney stones, but last about a year ago. He denies any gross hematuria, pain with urination. UA with physical did show blood 2+/protein in urine. DM2-not currently on medications. Patient due to limiting pop from diet. A1c pending. Consents to Shingrix vaccine. Declines Hep B. Review of Systems All other systems reviewed and are negative. Past Medical History: PAST MEDICAL HISTORY Diagnosis Date Depressive disorder, not elsewhere classified Mixed hyperlipidemia ISAK (obstructive sleep apnea) compliant Type 2 diabetes mellitus without complication, without long-term current use of insulin ([facility]) Past Surgical History: PAST SURGICAL HISTORY Procedure Laterality Date /11/29 JT/PHALANX W/NEURECT W/DIR CLSR Left partial, mid finger PAST SURGICAL HISTORY OF right knee surgery to insert pins PAST SURGICAL HISTORY OF left eye surgery PAST SURGICAL HISTORY OF wisdom tooth surgery Family History: FAMILY HISTORY Adopted: Yes Social History: Social History Tobacco Use Smoking status: Former Smokeless tobacco: Current Types: Snuff Substance Use Topics Alcohol use: Yes Drug use: No Current Medications: cyclobenzaprine (FLEXERIL) 10 mg tablet, Take by mouth three times daily., Disp: , Rfl: omega-3 fatty acids 1,000 mg cap, Take 2 capsules by mouth once daily., Disp: , Rfl: agtvnpfw-qrg-QB-K-lycopene 400-20-370 mcg tab, Take by mouth once daily., Disp: , Rfl: vit V-tunxzah-gjsj-rutin-hb196 020-79-81-40 mg tab, Take by mouth once daily., Disp: , Rfl: fenofibrate nanocrystallized (TRICOR) 145 mg tablet, Take 1 tablet by mouth once daily., Disp: 90 tablet, Rfl: 3 atorvastatin (LIPITOR) 20 mg tablet, Take 1 tablet by mouth once daily., Disp: 90 tablet, Rfl: 3 buPROPion XL (WELLBUTRIN XL) 150 mg 24 hr tablet, Take 1 tablet by mouth every morning., Disp: 90 tablet, Rfl: 3 citalopram (CELEXA) 40 mg tablet, Take 1 tablet by mouth once daily., Disp: 90 tablet, Rfl: 3 [DISCONTINUED] predniSONE (DELTASONE) 10 mg tablet, Take 20 mg by mouth twice daily., Disp: , Rfl: [DISCONTINUED] fenofibrate nanocrystallized (TRICOR) 145 mg tablet, TAKE 1 TABLET DAILY, Disp: 90 tablet, Rfl: 3 [DISCONTINUED] atorvastatin (LIPITOR) 20 mg tablet, Take 1 tablet by mouth once daily., Disp: 90 tablet, Rfl: 3 [DISCONTINUED] buPROPion XL (WELLBUTRIN XL) 150 mg 24 hr tablet, Take 1 tablet by mouth every morning., Disp: 90 tablet, Rfl: 3 [DISCONTINUED] citalopram (CELEXA) 40 mg tablet, Take 1 tablet by mouth once daily., Disp: 90 tablet, Rfl: 3 No facility-administered encounter medications on file as of 06/15/2023. Allergies: ALLERGIES No Known Allergies Vitals: BP 132/82 Pulse 84 Ht 6' 3 (1.91m) Wt 249 lb (112.9kg) SpO2 98% BMI 31.12 kg/(m^2). Objective Physical Exam HENT: Head: Normocephalic and atraumatic. Cardiovascular: Rate and Rhythm: Normal rate and regular rhythm. Heart sounds: Normal heart sounds. Pulmonary: Effort: Pulmonary effort is normal. Breath sounds: Normal breath sounds. Musculoskeletal: Right lower leg: No edema. Left lower leg: No edema. Skin: General: Skin is warm and dry. Neurological: Mental Status: He is alert. Gait: Gait is intact. Psychiatric: Mood and Affect: Mood and affect normal. ASSESSMENT/PLAN: 1. Well adult exam - ICD9: V70.0, ICD10: Z00.00 (primary diagnosis) Preventive medicine appropriate for patient's age and gender reviewed in office today. Reviewed complete labs with patient. Will obtain A1C, urine albumin/creat ratio and notify with results. Discussed the importance of routine exercise and low fat diet. UA through work with 2+ RBCs. Will recheck and consider urology if persistent. Need for vaccination - ICD9: V05.9, ICD10: Z23 - ZOSTER VACCINE, RECOMBINANT (SHINGRIX) Frieda Langston. BRAXTON Forrest documented in this encounter [facility] 06-15-2023 Instructions Stacey Cruz MA - 06/15/2023 2:51 PM EDT [facility] FACTS Please visit our lab at least 3-5 days before your scheduled appointment to have your lab work drawn, if lab work is ordered. This will allow us the ability to review your lab work results with you during your scheduled visit. [facility] HOURS: Lab is open Tuesday - Tuesday from 6:30am to 5pm and open 8am -12pm on Saturdays. [facility] HOURS: Tuesday- 7:30am to 5:30pm. Fridays 7:30-5:00pm and Tuesday 8:00am to 12:00 pm. Routine Lab Orders 60 days after they are entered. If your lab orders , you may be required to wait in the lab while they are reinstated FUTURE ORDERS are lab tests to be completed on the EXPECTED date. These orders 60 days after the expected date. STANDING ORDERS are recurring orders with an expiration date. The interval will indicate how often the test should be completed. FASTING LAB means nothing to eat or drink (except water) 10-12 hours before your blood is drawn. CT/MRI/IVP If you have one of these radiology exams ordered along with blood work, please complete the blood work at least one day prior to the scheduled exam. My Chart Schedule My Appointment enables you to view your established primary care provider's open schedule and book an appointment online in real-time. This feature is available in internal medicine, family medicine, or pediatrics at any of our [facility] locations and main campus. documented in this encounter [facility] 05-25-2023 Note HNO ID: [id number] Author: Frieda Forrest PA-C Service: ? Author Type: Physician Brusher Warp Type: Progress Notes Filed: 05/25/2023 4:20 PM Note Text: Subjective HPI Patient presents today for urgent appointment. He reports he started to have pain in low back and right leg last 05/16/2023. He admits prior he had been running and messing around while at an [employer]. He went to the urgent care last week and was started on Flexeril which she has been taking at night, prednisone 20 mg twice daily for 6 days. Patient reports that there was significant improvement of pain while taking steroids, but it seemed to flare slightly again after completing. Today back is felt good with limited pain. Admits he did have heated seats on in the car on the way here which helped. Review of Systems All other systems reviewed and are negative. Past Medical History: PAST MEDICAL HISTORY Diagnosis Date Depressive disorder, not elsewhere classified Mixed hyperlipidemia ISAK (obstructive sleep apnea) compliant Type 2 diabetes mellitus without complication, without long-term current use of insulin (FORMERLY [facility]) Past Surgical History: PAST SURGICAL HISTORY Procedure Laterality Date AMP /11/29 JT/PHALANX W/NEURECT W/DIR CLSR Left partial, mid finger PAST SURGICAL HISTORY OF right knee surgery to insert pins PAST SURGICAL HISTORY OF left eye surgery PAST SURGICAL HISTORY OF wisdom tooth surgery Family History: FAMILY HISTORY Adopted: Yes Social History: Social History Tobacco Use Smoking status: Former Smokeless tobacco: Current Types: Snuff Substance Use Topics Alcohol use: Yes Drug use: No Current Medications: cyclobenzaprine (FLEXERIL) 10 mg tablet, Take by mouth three times daily., Disp: , Rfl: predniSONE (DELTASONE) 10 mg tablet, Take 20 mg by mouth twice daily., Disp: , Rfl: fenofibrate nanocrystallized (TRICOR) 145 mg tablet, TAKE 1 TABLET DAILY, Disp: 90 tablet, Rfl: 3 atorvastatin (LIPITOR) 20 mg tablet, Take 1 tablet by mouth once daily., Disp: 90 tablet, Rfl: 3 buPROPion XL (WELLBUTRIN XL) 150 mg 24 hr tablet, Take 1 tablet by mouth every morning., Disp: 90 tablet, Rfl: 3 citalopram (CELEXA) 40 mg tablet, Take 1 tablet by mouth once daily., Disp: 90 tablet, Rfl: 3 omega-3 fatty acids 1,000 mg cap, Take 2 capsules by mouth once daily., Disp: , Rfl: emgslzyv-lkq-DC-K-lycopene 400-20-370 mcg tab, Take by mouth once daily., Disp: , Rfl: vit [id number]-[id number]-[id number] 457-06-04-40 mg tab, Take by mouth once daily., Disp: , Rfl: No facility-administered encounter medications on file as of 05/25/2023. Allergies: ALLERGIES No Known Allergies Vitals: BP 136/77 Pulse 93 Ht 6' 3 (1.91m) Wt 251 lb (113.9kg) SpO2 97% BMI 31.37 kg/(m2). Objective Physical Exam HENT: Head: Normocephalic and atraumatic. Cardiovascular: Rate and Rhythm: Normal rate and regular rhythm. Heart sounds: Normal heart sounds. Pulmonary: Effort: Pulmonary effort is normal. Breath sounds: Normal breath sounds. Musculoskeletal: General: No tenderness. Right lower leg: No edema. Left lower leg: No edema. Skin: General: Skin is warm and dry. Neurological: Mental Status: He is alert. Gait: Gait is intact. Psychiatric: Mood and Affect: Mood and affect normal. ASSESSMENT/PLAN: 1. Lumbar back pain - ICD9: 724.2, ICD10: M54.50 (primary diagnosis) Sciatica significantly improved since completing course of prednisone, Flexeril. Since prednisone not completed, advised to switch to naproxen twice daily, continue Flexeril. Recommend Salonpas patch, heat, massage, stretching exercises. Frieda Forrest PA-C [facility] 05-25-2023 History of Presen t illness Narrative Subjective HPI Patient presents today for urgent appointment. He reports he started to have pain in low back and right leg last 05/16/2023. He admits prior he had been running and messing around while at an [employer]. He went to the urgent care last week and was started on Flexeril which she has been taking at night, prednisone 20 mg twice daily for 6 days. Patient reports that there was significant improvement of pain while taking steroids, but it seemed to flare slightly again after completing. Today back is felt good with limited pain. Admits he did have heated seats on in the car on the way here which helped. Review of Systems All other systems reviewed and are negative. Past Medical History: PAST MEDICAL HISTORY Diagnosis Date Depressive disorder, not elsewhere classified Mixed hyperlipidemia ISAK (obstructive sleep apnea) compliant Type 2 diabetes mellitus without complication, without long-term current use of insulin ([facility]) Past Surgical History: PAST SURGICAL HISTORY Procedure Laterality Date AMP /11/29 JT/PHALANX W/NEURECT W/DIR CLSR Left partial, mid finger PAST SURGICAL HISTORY OF right knee surgery to insert pins PAST SURGICAL HISTORY OF left eye surgery PAST SURGICAL HISTORY OF wisdom tooth surgery Family History: FAMILY HISTORY Adopted: Yes Social History: Social History Tobacco Use Smoking status: Former Smokeless tobacco: Current Types: Snuff Substance Use Topics Alcohol use: Yes Drug use: No Current Medications: cyclobenzaprine (FLEXERIL) 10 mg tablet, Take by mouth three times daily., Disp: , Rfl: predniSONE (DELTASONE) 10 mg tablet, Take 20 mg by mouth twice daily., Disp: , Rfl: fenofibrate nanocrystallized (TRICOR) 145 mg tablet, TAKE 1 TABLET DAILY, Disp: 90 tablet, Rfl: 3 atorvastatin (LIPITOR) 20 mg tablet, Take 1 tablet by mouth once daily., Disp: 90 tablet, Rfl: 3 buPROPion XL (WELLBUTRIN XL) 150 mg 24 hr tablet, Take 1 tablet by mouth every morning., Disp: 90 tablet, Rfl: 3 citalopram (CELEXA) 40 mg tablet, Take 1 tablet by mouth once daily., Disp: 90 tablet, Rfl: 3 omega-3 fatty acids 1,000 mg cap, Take 2 capsules by mouth once daily., Disp: , Rfl: throimnt-wks-NF-K-lycopene 400-20-370 mcg tab, Take by mouth once daily., Disp: , Rfl: vit [id number]-[id number]-[id number] 599-00-57-40 mg tab, Take by mouth once daily., Disp: , Rfl: No facility-administered encounter medications on file as of 05/25/2023. Allergies: ALLERGIES No Known Allergies Vitals: BP 136/77 Pulse 93 Ht 6' 3 (1.91m) Wt 251 lb (113.9kg) SpO2 97% BMI 31.37 kg/(m^2). Objective Physical Exam HENT: Head: Normocephalic and atraumatic. Cardiovascular: Rate and Rhythm: Normal rate and regular rhythm. Heart sounds: Normal heart sounds. Pulmonary: Effort: Pulmonary effort is normal. Breath sounds: Normal breath sounds. Musculoskeletal: General: No tenderness. Right lower leg: No edema. Left lower leg: No edema. Skin: General: Skin is warm and dry. Neurological: Mental Status: He is alert. Gait: Gait is intact. Psychiatric: Mood and Affect: Mood and affect normal. ASSESSMENT/PLAN: 1. Lumbar back pain - ICD9: 724.2, ICD10: M54.50 (primary diagnosis) Sciatica significantly improved since completing course of prednisone, Flexeril. Since prednisone not completed, advised to switch to naproxen twice daily, continue Flexeril. Recommend Salonpas patch, heat, massage, stretching exercises. Frieda Forrest PA-C documented in this encounter [facility] 05-25-2023 Instructions Frieda Forrest PA-C - 05/25/2023 3:18 PM EDT Images from the original note were not included. Low Back Pain Exercise Guide Regular exercises to restore the strength of your back and a gradual return to everyday activities are important for your full recovery. These exercises are specifically designed to rehabilitate the muscles of the lower back by increasing the strength and flexibility. This exercise program should be performed on a regular basis to regain and improve lost muscular strength, endurance, and flexibility; thus a consistent effort on your part is required to obtain the maximum benefit from the exercise program outlined. When correctly performed all of these exercises may be accomplished without difficulty. You may notice some muscular fatigue and soreness for the initiation of the exercise program, but this should be distinguished from pain. In addition, there should not be any increase in pain or swelling. These signs may indicate too much activity too fast, and necessitate that you consult with your doctor. Heat-up lower back- Always heat-up the area prior to stretching and exercises for 15 to 20 minutes. Suggested heating techniques: A) Towels soaked in hot water B) Heat packs C) Hot tubs *Always use caution when applying heat to the body surface. The amount of heat applied should not exceed the patients comfort level. Use a dry towel as a barrier between the skin and the hot towel or hot pack to help protect the skin, when needed. Initial Exercise Program Ankle Pumps Lie on your back. Move ankles up and down. Repeat 10 times. Repeat 10 times. Heel Slides Lie on your back. Slowly bend and straighten knee. Repeat 10 times. Abdominal Contraction Lie on your back with knees bent and hands resting below ribs. Tighten abdominal muscles to squeeze ribs down toward back. Be sure not to hold breath. Hold 5 seconds. Relax. Repeat 10 times. Wall Squats Stand with back leaning against wall. Walk feet 12 inches in front of body. Keep abdominal muscles tight while slowly bending both knees 45 degrees. Hold 5 seconds. Slowly return to upright position. Repeat 10 times. Heel Raises Stand with weight even on both feet. Slowly raise heels up and down. Repeat 10 times. Straight Leg Raises Lie on your back with one leg straight and one knee bent. Tighten abdominal muscles to stabilize low back. Slowly lift leg straight up about 6 to 12 inches and hold 1 to 5 seconds. Lower leg slowly. Repeat 10 times. Intermediate Exercise Program Single Knee to Chest Stretch Lie on your back with both knees bent. Hold thigh behind knee and bring one knee up to chest. Hold 20 seconds. Relax. Repeat 5 times on each side. Hamstring Stretch Lie on your back with legs bent. Hold one thigh behind knee. Slowly straighten knee until a stretch is felt in back of thigh. Hold 20 seconds. Relax. Repeat 5 times on each side. Lumbar Stabilization Exercises With [place] Ball Abdominal muscles must remain contracted during each exercise (see Abdominal Contraction). Perform each exercise for 60 seconds. The farther the ball is from your body, the harder the exercise. Lying on Floor Lie on your back with knees bent and calves resting on ball. Slowly raise arm over head and lower arm, alternating right and left sides. Slowly straighten one knee and relax, alternating right and left sides. Slowly straighten one knee and raise opposite arm over head. Alternate opposite arms and legs. Slowly walk ball forward and backward with legs. Sitting on Ball Sit on ball with hips and knees bent 90 and feet resting on floor. Slowly raise arm over head and lower arm, alternating right and left sides. Slowly raise and lower heel, alternating right and left sides. Slowly raise one heel and raise opposite arm over head. Alternate opposite arm and heel. Marching: Slowly raise one foot 2 inches from floor, alternating right and left sides. Standing Stand with ball between your low back and wall. Slowly bend knees 45 to 90 . Hold 5 seconds. Straighten knees. Slowly bend knees 45 to 90 while raising both arms over head. Lying on Ball Lie on your stomach over ball Slowly raise alternate arms over head. Slowly raise alternate legs 2 to 4 inches from floor. Combine 1 and 2, alternating opposite arms and legs. Bend one knee. Slowly lift this leg up, alternating right and left legs. NOTE: Be careful not to arch your low back! Advanced Exercise Program Hip Flexor Stretch Lie on your back near edge of bed, holding knees to chest. Slowly lower one leg down, keeping knee bent, until a stretch is felt across top of the hip/thigh. Hold 20 seconds. Relax. Repeat 5 times on each side. Piriformis Stretch Lie on back with both knees bent. Cross one leg on top of the other. Pull opposite knee to chest until a stretch is felt in the buttock/hip area. Hold 20 seconds. Relax. Repeat 5 times each side. Lumbar Stabilization Exercise With [place] Ball Lie on stomach over ball. Walk hands out in front of ball until ball is under legs. Reverse to starting position. Walk hands out in front of ball until ball is under legs and slowly raise alternating arms over head. Walk hands out in front of ball and slowly perform push-ups. Aerobic Exercises Maintain spine in neutral position while stabilizing with abdominal muscles to protect the low back during aerobic exercise. Stationary bike for 20 to 30 minutes. Treadmill for 20 to 30 minutes. Cool down- Upon completion of exercises it is essential to cool the area down. This will help control any inflammation, pain, and help enhance the healing process. Suggested techniques: A) Ice Bag: A bag of ice placed over the injured area for 15-20 minutes. B) Ice massage: Using a paper or Styrofoam cup filled with water, freeze it, and massage it over the area peeling the cup away as the ice melts for 15-20 minutes. *Always use caution when applying ice or cold directly to the skin. Use a dry towel as a barrier between the skin and ice if needed. * BE AWARE that ice causes a normal physiologic response and pattern of sensations; Cold, Burning, Aching, then Numbness (CBAN). If the ice is too uncomfortable use a cool towel. documented in this encounter [facility] 05-17-2023 Evaluation note Encounter Date Diagnosis Assessment Notes Apr, Right sided sciatica (ICD-10 - M54.31) Take medicine as prescribed. Keep leg elevated. If you develop swelling in the leg, warmth, redness, or swelling in the leg, chest pain, go to the ER immediately. No ibuprofen, aleve, or aspirin with prednisone. DVT is certainly in the differential, however, patient has low pretest probability for thromboembolic etiology given that his Wells criteria score is 0. Given that there is no trauma, feel that xray imaging is not necessary at this time. There is also no evidence of bacterial etiology as he does not have any erythema, swelling, or induration of the skin. History and exam are most consistent with strain of right hamstring and I suspect that he is having pressure on the right sciatic nerve. We will treat him with a course of prednisone and cyclobenzaprine. Educated him about red flag symptoms to watch out for and if he does develop red flag symptoms, he is to go to the ER immediately. Apr, Strain of right hamstring, initial encounter (ICD-10 - S76.311A) [employer] Other 02-06-2023 Miscellaneous Notes* Telephone Encounter - Frieda Forrest PA-C - 01/03/2023 7:22 AM EST The following approved medication requests have been transmitted electronically. Requested Prescriptions Pending Prescriptions Disp Refills fenofibrate nanocrystallized (TRICOR) 145 mg tablet [Pharmacy Med Name: FENOFIBRATE TABS 145MG] 90 tablet 3 Sig: TAKE 1 TABLET DAILY Frieda Forrest PA-C * Telephone Encounter - Danay Jenkins MA - 01/03/2023 7:02 AM EST Last ov: 09/13/22 Next ov: 06/15/23 Pharmacy electronically requests the following refill(s) Requested Prescriptions Pending Prescriptions Disp Refills fenofibrate nanocrystallized (TRICOR) 145 mg tablet [Pharmacy Med Name: FENOFIBRATE TABS 145MG] 90 tablet 3 Sig: TAKE 1 TABLET DAILY Danay Jenkins MA [facility] NoteHNO ID: [id number] Author: Deja Vee PA-C Service: ? Author Type: Physician Br[employer]her [employer]p Type: Progress Notes Filed: 09/17/2022 3:45 PM Note Text: This note was created using FraudMetrixriter. Subjective Bobbi Garrison is a 52 year old male. CC: Follow up for diet controlled DM. PAST MEDICAL HISTORY Diagnosis Date Depressive disorder, not elsewhere classified Mixed hyperlipidemia ISAK (obstructive sleep apnea) compliant Type 2 diabetes mellitus without complication, without long-term current use of insulin ([facility]) PAST SURGICAL HISTORY Procedure Laterality Date AMP F/TH / JT/PHALANX W/NEURECT W/DIR CLSR Left partial, mid finger PAST SURGICAL HISTORY OF right knee surgery to insert pins PAST SURGICAL HISTORY OF left eye surgery PAST SURGICAL HISTORY OF wisdom tooth surgery No family history on file. Social History Tobacco Use Smoking status: Former Smokeless tobacco: Current Types: Snuff Substance Use Topics Alcohol use: Yes Drug use: No Review of Systems Constitutional: Negative for activity change, appetite change, fatigue and unexpected weight change. HENT: Negative for dental problem, ear pain, nosebleeds and trouble swallowing. Eyes: Negative for photophobia and visual disturbance. Respiratory: Negative for cough, shortness of breath and wheezing. Cardiovascular: Negative for chest pain, palpitations and leg swelling. Gastrointestinal: Negative for constipation, diarrhea and nausea. Endocrine: Negative for cold intolerance, heat intolerance, polydipsia, polyphagia and polyuria. Genitourinary: Negative for difficulty urinating, dysuria, flank pain, frequency and hematuria. Musculoskeletal: Negative for gait problem, neck pain and neck stiffness. Skin: Negative for rash. Allergic/Immunologic: Negative for environmental allergies, food allergies and immunocompromised state. Neurological: Negative for dizziness, light-headedness and headaches. Hematological: Negative for adenopathy. Does not bruise/bleed easily. Objective BP 135/77 Pulse 97 Ht 190.5 cm (6' 3 ) Wt 114.8 kg (253 lb) SpO2 97% BMI 31.62 kg/m? Physical Exam Vitals reviewed. Constitutional: Appearance: Normal appearance. He is obese. HENT: Head: Normocephalic and atraumatic. Right Ear: Tympanic membrane, ear canal and external ear normal. Left Ear: Tympanic membrane, ear canal and external ear normal. Nose: Nose normal. No congestion. Mouth/Throat: Mouth: Mucous membranes are moist. Pharynx: Oropharynx is clear. Eyes: General: No scleral icterus. Right eye: No discharge. Left eye: No discharge. Extraocular Movements: Extraocular movements intact. Conjunctiva/sclera: Conjunctivae normal. Cardiovascular: Rate and Rhythm: Normal rate and regular rhythm. Heart sounds: Normal heart sounds. Pulmonary: Effort: Pulmonary effort is normal. No respiratory distress. Breath sounds: Normal breath sounds. Abdominal: General: Bowel sounds are normal. Palpations: Abdomen is soft. Tenderness: There is no abdominal tenderness. There is no right CVA tenderness or left CVA tenderness. Musculoskeletal: Cervical back: Normal range of motion and neck supple. No rigidity or tenderness. Right lower leg: No edema. Left lower leg: No edema. Skin: General: Skin is warm. Coloration: Skin is not jaundiced. Findings: No rash. Neurological: General: No focal deficit present. Mental Status: He is alert. Cranial Nerves: No cranial nerve deficit. Assessment and Plan ASSESSMENT/PLAN: 1. Adult onset diabetes mellitus (HCC) - ICD9: 250.00, ICD10: E11.9 Controlled. - Ophthalmology referral for eval/management of diabetic eye changes - Encouraged regular aerobic exercise and weight loss - Daily Asprin therapy recommended - BP goal of <130/80 - LDL goal of <100 - HGB A1C - BASIC METABOLIC [facility] of Present illness Narrative* MIRLANDE De La Cruz-C - 09/13/2022 2:26 PM EDT This note was created using NoteWriter. Subjective Bobbi Garrison is a 52 year old male. CC: Follow up for diet controlled DM. PAST MEDICAL HISTORY Diagnosis Date Depressive disorder, not elsewhere classified Mixed hyperlipidemia ISAK (obstructive sleep apnea) compliant Type 2 diabetes mellitus without complication, without long-term current use of insulin ([facility]) PAST SURGICAL HISTORY Procedure Laterality Date AMP /11/29 JT/PHALANX W/NEURECT W/DIR CLSR Left partial, mid finger PAST SURGICAL HISTORY OF right knee surgery to insert pins PAST SURGICAL HISTORY OF left eye surgery PAST SURGICAL HISTORY OF wisdom tooth surgery No family history on file. Social History Tobacco Use Smoking status: Former Smokeless tobacco: Current Types: Snuff Substance Use Topics Alcohol use: Yes Drug use: No Review of Systems Constitutional: Negative for activity change, appetite change, fatigue and unexpected weight change. HENT: Negative for dental problem, ear pain, nosebleeds and trouble swallowing. Eyes: Negative for photophobia and visual disturbance. Respiratory: Negative for cough, shortness of breath and wheezing. Cardiovascular: Negative for chest pain, palpitations and leg swelling. Gastrointestinal: Negative for constipation, diarrhea and nausea. Endocrine: Negative for cold intolerance, heat intolerance, polydipsia, polyphagia and polyuria. Genitourinary: Negative for difficulty urinating, dysuria, flank pain, frequency and hematuria. Musculoskeletal: Negative for gait problem, neck pain and neck stiffness. Skin: Negative for rash. Allergic/Immunologic: Negative for environmental allergies, food allergies and immunocompromised state. Neurological: Negative for dizziness, light-headedness and headaches. Hematological: Negative for adenopathy. Does not bruise/bleed easily. Objective BP 135/77 Pulse 97 Ht 190.5 cm (6' 3 ) Wt 114.8 kg (253 lb) SpO2 97% BMI 31.62 kg/m Physical Exam Vitals reviewed. Constitutional: Appearance: Normal appearance. He is obese. HENT: Head: Normocephalic and atraumatic. Right Ear: Tympanic membrane, ear canal and external ear normal. Left Ear: Tympanic membrane, ear canal and external ear normal. Nose: Nose normal. No congestion. Mouth/Throat: Mouth: Mucous membranes are moist. Pharynx: Oropharynx is clear. Eyes: General: No scleral icterus. Right eye: No discharge. Left eye: No discharge. Extraocular Movements: Extraocular movements intact. Conjunctiva/sclera: Conjunctivae normal. Cardiovascular: Rate and Rhythm: Normal rate and regular rhythm. Heart sounds: Normal heart sounds. Pulmonary: Effort: Pulmonary effort is normal. No respiratory distress. Breath sounds: Normal breath sounds. Abdominal: General: Bowel sounds are normal. Palpations: Abdomen is soft. Tenderness: There is no abdominal tenderness. There is no right CVA tenderness or left CVA tenderness. Musculoskeletal: Cervical back: Normal range of motion and neck supple. No rigidity or tenderness. Right lower leg: No edema. Left lower leg: No edema. Skin: General: Skin is warm. Coloration: Skin is not jaundiced. Findings: No rash. Neurological: General: No focal deficit present. Mental Status: He is alert. Cranial Nerves: No cranial nerve deficit. Assessment and Plan ASSESSMENT/PLAN: 1. Adult onset diabetes mellitus (HCC) - ICD9: 250.00, ICD10: E11.9 Controlled. - Ophthalmology referral for eval/management of diabetic eye changes - Encouraged regular aerobic exercise and weight loss - Daily Asprin therapy recommended - BP goal of <130/80 - LDL goal of <100 - HGB A1C - BASIC METABOLIC PNL Deja Vee PA-C [facility] Instructions* Patient Instructions* Deja Vee PA-C - 09/13/2022 2:15 PM EDT SAMPLE 1500 Calorie Diabetic Diet 02/03 This is a sample 1500 calorie diet based on 3 meals and 2 snacks per day. The purpose of this sample diet is to provide you with beginning ideas for eating a variety of healthy foods, snacks. You mayfind this useful for meal planning. A dietitian can provide more detailed information about a diet plan which is individualized for you. The carbohydrate choices are listed for reference and for those that use carbohydrate counting in their diabetic meal planning. PANCHITO 12 carb choices Breakfast 3 carb choices cup(6 fl oz) - yogurt, fruit, low-fat, no sugar added 1 cup, cubes - melons, cantaloupe, raw 1/2 small bagel (3 garry) - bagels, whole wheat 2 tbsp - kraft [place] light cream cheese Snack 1 carb choices 3 cup - popcorn, lite-microwave Lunch 3 carb choices 1/2 cup - cheese, cottage, lowfat, 1% milkfat 1/2 cup, shredded - cheese, low-fat, cheddar or krishna 1 small (2-3/8 garry) - oranges, raw, all commercial variety 1 cup, chopped - broccoli, cooked, boiled, drained, without salt 1 potato small ( to -11/29 ... - potato, baked, flesh & skin, without salt Snack 1 carb choices 1 tbsp - peanut butter, chunk style, with salt 2 cake - rice cakes, brown rice, multigrain Dinner 4 carb choices 1 slice, thick/large (1/2 thick) - tomatoes, reduced, ripe, raw, year round average 3 oz - beef, ground, patties, frozen, cooked, broiled, medium 2/3 cup - beans, baked, canned, with pork & tomato sauce 1 roll - rolls, whole grain, hamburger or hotdog TUESDAY 12 carb choices Breakfast 3 carb choices 1 cup - milk, lowfat, fluid, 1% milkfat, with vitamin a 1/4 cup - egg substitute, liquid 1/2 cup - applesauce, canned, unsweetened, without vitamin c 1 pancake (4 garry) - pancakes, plain, dry mix, complete, prepared 2 Tablespoons sugar Free syrup Snack 1 carb choices 1 cracker, triple - crackers, rye, wafers, seasoned Lunch 3 carb choices 1 cup - milk, lowfat, fluid, 1% milkfat, with vitamin a 1 can (10.75 oz) - soup, vegetable beef, canned, condensed, commercial 1/2 cup - peaches, canned, juice pack, solids & liquids 6 cracker - crackers, saltines (includes oyster, soda, soup) Snack 2 carb choices 1 cup - milk, lowfat, fluid, 1% milkfat, with vitamin a 1 slice, large - bread, raisin, toasted, enriched Dinner 3 carb choices 1/4 breast, bone and skin removed - chicken, broilers or fryers, breast, meat only, cooked, roas 3 stick (-04/04 x 5/8 ) - bread sticks, plain, whole grain 2 oz - pie, pumpkin, prepared from recipe 1 serving (1.5 cups prepared) - fresh express caesar fresh salad kit Tuesday carb choices Breakfast 3.5 carb choices 1 cup - milk, lowfat, fluid, 1% milkfat, with vitamin a 1 tsp - margarine, soft, safflower (hydrogenated & regular) cup old fashioned oatmeal, prepared, cinnamon, sweetened with sugar substitute 1 small (6 to 6-7/8 long) - bananas, raw Snack 2 carb choices 1 oz - cheese, mozzarella, partial skim milk 1 pear, large (approx 2 per lb) - pears, raw Lunch 3 carb choices 3/4 cup (6 fl oz) - yogurt, fruit, low-fat, no sugar added 5 medium - carrots, baby, raw 1/2 cup - tuna salad 1 serving - nabisco, nabisco wheat thins crackers, baked 1 small apple, fresh Snack 0 carb choices 2 tbsp - salad dressing, kraft light done right! ranch dressing 1 cup, chopped - broccoli, raw 8 medium - carrots, baby, raw Dinner 3 carb choices 1 cup - milk, lowfat, fluid, 1% milkfat, with vitamin a 2/3 cup - rice, brown, medium-grain, cooked 1 3/4 cup - green giant create a meal loren stir mckeon vegetables Tuesday carb choices Breakfast 3 carb choices 2 oz, 1 link - sausage turkey breakfast links mild 1 cup - blueberries, raw 1 waardenlegarett (4 garry) (include ... - kyara's eggo lowfat blueberry nutri- grain waffles 3 tbsp - syrups, table blends, pancake, reduced-calorie Snack 1 carb choices 1 medium - egg, whole, raw, fresh 2/3 cup oyster crackers - crackers, saltines (includes oyster, soda, soup) NOTE: Boil or poach egg. Lunch 4 carb choices 1 oz - cheese, kyrgyz 3 oz - brissa rich, turkey breast & white turkey (oven roasted) 1 cup, diced - melons, cantaloupe, raw 2 slice, regular - bread, pumpernickel 1 oz - pretzels, hard, whole-wheat 1 cup sugar-free jello Snack 2 carb choices 1 cup - milk, lowfat, fluid, 1% milkfat, with vitamin a 1/2 cup (1 nlea serving) - cereals zszle-nf-sdw, marciano ramirez the origin shredded wheat Dinner 3 carb choices 2 tbsp - salad dressing, kraft light done right! czech dressing 1/2 cup - sauce, pasta, spaghetti/marinara, dvpeo-hy-nafez 1 cup - spaghetti, cooked, enriched, without salt, whole grain or white wheat with fiber 3/4 cup - fast foods, salad, vegetable, tossed, without dressing TUESDAY 12 carb choices Breakfast 3 carb choices 1 cup - milk, nonfat, fluid, with vitamin a (fat free or skim) 1/4 cup - egg substitute, liquid 1 cup, balls - melons, honeydew, raw 1 medium slice, cooked - pork, cured, roberto, cooked, broiled, fernández-fried or roasted 1 tortilla (approx 6 garry) - tortillas, hhblv-gv-opjb or -mckeon, flour, whole wheat NOTE: Scramble egg substitute in non-stick skillet. Snack 1.5 carb choices 1 cup, quartered or chopped - apples, raw, with skin Lunch 3 carb choices 2 tbsp - low fat salad dressing 1med(7 to 7-7/8 long) - bananas, raw 1 slice, small (2 x 2-1/2 x 1-3/... - bread, scottish or kirk (includes sourdough) 1 1/2 cup - fast foods, salad, vegetable tossed, without dressing, with Snack 2 carb choices 1/2 oz - cheese, mozzarella, partial skim milk 1/2 cup - sauce, pasta, spaghetti/marinara, eniko-ol-ydgll 1 serving romansh muffapmela, plain, whole grain Dinner 4 carb choices 1 cup - spinach, cooked, boiled, drained, without salt 1 slice, medium (4 x 2-1/2 x 1-3... - bread, scottish or kirk (includes sourdough) 1 serving - lasagna with meat & sauce, frozen entree TUESDAY 16 carb choices Breakfast 3 carb choices 1 cup - milk, lowfat, fluid, 1% milkfat, with vitamin a 1 cup - cereals nhdrm-mm-kow, general ross, cheerios 1 cup, halves - strawberries, raw Snack 2 carb choices 1 cup - milk, lowfat, fluid, 1% milkfat, with vitamin a 2 cookie - cookies, fig bars Lunch 3 carb choices 1/2 cup - fruit salad, canned, water pack, solids & liquids 1 bettina, large (6-1/2 garry) - bread, bettina, whole-wheat 1 serving - alma's Sphere [employer]ables obrhr-wn-ycqtm sandwich salad, chicken, Snack 1 carb choices 7 slice, thick/large (1/2 thick) - tomatoes, reduced, ripe, raw, year round average 1 oz - tuna, light, canned in water, drained solids 3 toast - crackers, cedrick toast, wheat Dinner 3 carb choices 1 cup - milk, lowfat, fluid, 1% milkfat, with vitamin a 3 oz - pork, fresh, loin, center rib (chops), boneless, lean, gallardo 1 cup (1 pieces) - cauliflower, cooked, boiled, drained, without salt 2/3 cup - wild rice, cooked Tuesday carb choices Breakfast 3 carb choices 1/2 cup - grapefruit juice, frozen concentrate, unsweetened, diluted w 2 slices (6 per 6-oz pkg.) - pork, cured, kazakh-style roberto, grilled 1 small - muffins, oat bran Snack 1 carb choices 1 cup - vegetable juice cocktail, canned 2 stick, small (approx 4-1/4 long) - bread sticks, plain Lunch 3 carb choices 1 cup (8 fl oz) - soup, chili beef, canned, condensed, commercial 1 - bread, cornbread, dry mix, prepared Snack 1 carb choices 1/2 cup (8 fl oz) - frozen yogurts, chocolate, soft-serve, lite Dinner 3 carb choices 1/2 cup - gravy, beef, canned 1/2 cup - potatoes, mashed, home-prepared, whole milk 1/2 cup - corn, sweet, white, frozen, kernels cut off cob, boiled, drained 3 oz - beef, atiya, arm pot roast, lean, 0 fat, all grades, cooked, [facility] FACTS Please visit our lab at least 3-5 days before your scheduled appointment to have your lab work drawn, if lab work is ordered. This will allow us the ability to review your lab work results with you during your scheduled visit. [facility] HOURS: Lab is open Tuesday - Tuesday from 6:30am to 5pm and open 8am -12pm on Saturdays. [facility] HOURS: Tuesday- 7:30am to 5:30pm. Fridays 7:30-5:00pm and Tuesday 8:00am to 12:00 pm. Routine Lab Orders 60 days after they are entered. If your lab orders , you may be required to wait in the lab while they are reinstated FUTURE ORDERS are lab tests to be completed on the EXPECTED date. These orders 60 days afterthe expected date. STANDING ORDERS are recurring orders with an expiration date. The interval will indicate how often the test should be completed. [facility] LAB means nothing to eat or drink (except water) 10-12 hours before your blood is drawn. CT/MRI/IVP If you have one of these radiology exams ordered along with blood work, please complete the blood work at least one day prior to the scheduled exam. My Chart Schedule My Appointment enables you to view your established primary care provider's open schedule and book an appointment online in real-time. This feature is available in internal medicine, family medicine, or pediatrics at any of our [facility] locations and main campus. documented in this encounterTrihealth [facility]08-10-[facility]22 History of Present illness Narrative* Frieda Forrest PA-C - 07/07/2022 4:20 PM EDT Subjective HPI Patient presents today for lab follow-up appointment. He was contacted 06/24/2022 that he would needto schedule an appointment with urology, but patient instead was scheduled for follow-up with myself. He has history of kidney stone x3 in the last 6 years. Had 24-hour urine sample showing slightly high urine volume at almost 3000 L, elevated citric acid, sodium, uric acid, calcium. Patient has not had stone analysis in the past. He has seen Dr. Elva arana urologist. Since being diagnosed with diabetes last appointment, patient has made significant dietary changes.He eliminated pop, and he is having only 1 piece of candy/dessert every day at work. He is packing healthy fruits/veggies instead. Drinking coffee, black. Active at work. Review of Systems All other systems reviewed and are negative. Past Medical History: PAST MEDICAL HISTORY Diagnosis Date Depressive disorder, not elsewhere classified Mixed hyperlipidemia ISAK (obstructive sleep apnea) compliant Type 2 diabetes mellitus without complication, without long-term current use of insulin ([facility]) Past Surgical History: PAST SURGICAL HISTORY Procedure Laterality Date AMP /11/29 JT/PHALANX W/NEURECT W/DIR CLSR Left partial, mid finger PAST SURGICAL HISTORY OF right knee surgery to insert pins PAST SURGICAL HISTORY OF left eye surgery PAST SURGICAL HISTORY OF wisdom tooth surgery Family History: No family history on file. Social History: Social History Tobacco Use Smoking status: Former Smokeless tobacco: Current Types: Snuff Substance Use Topics Alcohol use: Yes Drug use: No Current Medications: atorvastatin (LIPITOR) 20 mg tablet, Take 1 tablet by mouth once daily., Disp:90 tablet, Rfl: 3 buPROPion XL (WELLBUTRIN XL) 150 mg 24 hr tablet, TAKE 1 TABLET EVERY MORNING, Disp: 90 tablet, Rfl: 3 fenofibrate nanocrystallized (TRICOR) 145 mg tablet, Take 1 tablet by mouth once daily., Disp: 90 tablet, Rfl: 3 citalopram (CELEXA) 40 mg tablet, Take 1 tablet by mouth once daily., Disp: 90 tablet, Rfl: 3 omega-3 fatty acids 1,000 mg cap, Take 2 capsules by mouth once daily., Disp: , Rfl: xhdvlfbl-yyu-RP-K-lycopene 400-20-370 mcg tab, Take by mouth once daily., Disp: , Rfl: vit V-efbyqnh-xbzu-rutin-hb196 556-56-26-40 mg tab, Take by mouth once daily., Disp: , Rfl: No facility-administered encounter medications on file as of 07/07/2022. Allergies: ALLERGIES No Known Allergies Vitals: BP 119/72 Pulse 79 Ht 6' 3 (1.91m) Wt 254 lb (115.2kg) SpO2 97% BMI 31.75 kg/(m^2). Objective Physical Exam HENT: Head: Normocephalic and atraumatic. Musculoskeletal: Right lower leg: No edema. Left lower leg: No edema. Skin: General: Skin is warm and dry. Neurological: Mental Status: He is alert. Gait: Gait is intact. Psychiatric: Mood and Affect: Mood and affect normal. ASSESSMENT/PLAN: 1. Kidney stone - ICD9: 592.0, ICD10: N20.0 (primary diagnosis) Reviewed 24-hour urine sample with patient, with elevated citric acid, uric acid, calcium. He has made significant dietary changes including increasing fluids, eliminating pop. We will continue to monitor for now. If kidney stone recurs, consider HCTZ, allopurinol as preventative options. We will fax labs to urologist Dr. Scanlon. 2. Type 2 diabetes mellitus without complication, without long-term current use of insulin (HCC) - ICD9: 250.00, ICD10: E11.9 We will complete A1c back office today to ensure things have been improving with dietary changes inthe last month. Does have appointment 08/2022 to recheck. B/o A1C improved to 6.6. - HB A1C B/O Frieda Forrest PA-C documented in this encounterTrihealth [facility]08-10-2022 Instructions* Patient Instructions* Danay Jenkins MA - 07/07/2022 3:36 PM EDT [facility] FACTS Please visit our lab at least 3-5 days before your scheduled appointment to have your lab work drawn, if lab work is ordered. This will allow us the ability to review your lab work results with you during your scheduled visit. [facility]: Lab is open Tuesday - Tuesday from 6:30am to 5pm and open 8am -12pm on Saturdays. [facility] HOURS: Tuesday- 7:30am to 5:30pm. Fridays 7:30-5:00pm and Tuesday 8:00am to 12:00 pm. Routine Lab Orders 60 days after they are entered. If your lab orders , you may be required to wait in the lab while they are reinstated FUTURE ORDERS are lab tests to be completed on the EXPECTED date. These orders 60 days afterthe expected date. STANDING ORDERS are recurring orders with an expiration date. The interval will indicate how often the test should be completed. FASTING LAB means nothing to eat or drink (except water) 10-12 hours before your blood is drawn. CT/MRI/IVP If you have one of these radiology exams ordered along with blood work, please complete the blood work at least one day prior to the scheduled exam. My Chart Schedule My Appointment enables you to view your established primary care provider's open schedule and book an appointment online in real-time. This feature is available in internal medicine, family medicine, or pediatrics at any of our [facility] locations and main campus. documented in this encounterTrihealth [facility]07-28-2022 Miscellaneous Notes* Telephone Encounter - Danay Jenkins MA - 06/24/2022 3:27 PM EDT Patient made aware of message below. Patient expressed understanding and had no further questions. Transferred to scheduling for assistance. Danay Jenkins MA * Telephone Encounter - Frieda Forrest PA-C - 06/23/2022 4:54 PM EDT Please call patient - urine study does show elevated calcium, citrate levels. I would like him to follow-up with urology to discuss stone prevention. Referral placed, transfer to [facility] to schedule. Frieda Forrest PA-C documented in this encounterTrihealth [facility]07-27-2022 Miscellaneous Notes* Telephone Encounter - Frieda Forrest PA-C - 06/23/2022 7:09 AM EDT The following approved medication requests have been transmitted electronically. Signed Prescriptions Disp Refills atorvastatin (LIPITOR) 20 mg tablet 90 tablet 3 Sig: Take 1 tablet by mouth once daily. LIV: No Authorizing Provider: FRIEDA FORREST PA-C * Telephone Encounter - Christel Manrique MA - 06/22/2022 2:45 PM EDT 10 day supply was sent to [facility]. Patient is requesting [facility]. * Telephone Encounter - Danay Jenkins MA - 06/22/2022 1:49 PM EDT 2nd attempt, left office number to call back. Danay Jenkins MA * Telephone Encounter - Danay Jenkins MA - 06/21/2022 10:21 AM EDT Left phone number to call back. Danay Jenkins MA * Telephone Encounter - Frieda Forrest PA-C - 06/21/2022 9:06 AM EDT Please call to clarify? The script is in there [facility]? Frieda Forrest PA-C * Telephone Encounter - Saira Ward - 06/18/2022 12:38 PM EDT Patient phones requesting refills as follows: Pending Prescriptions Disp Refills ATORVASTATIN 20 MG TABLET 10 tablet 0 Sig: Take 1 tablet by mouth once daily. LIV: No Please review and advise. Saira Maloney Pss documented in this encounterTrihealth [facility]07-25-2022 Miscellaneous Notes* Telephone Encounter - Danay Jenkins MA - 06/21/2022 10:54 AM EDT [facility]ed [facility] contact [facility] and was connected. Call was dropped seconds later. Will try again. Danay Jenkins MA * Telephone Encounter - Frieda Forrest PA-C - 06/21/2022 9:29 AM EDT [facility] to determine what the issue is - Frieda Forrest PA-C * Telephone Encounter - Francie Ward - 06/21/2022 8:52 AM EDT Patient states that [facility] needs to talk to Frieda Forrest before they will refill his atorvastatin (LIPITOR) 20 mg tablet. Patient only has the 10 pills from local pharmacy that was sent infor him a couple days ago. Please review and advise documented in this encounterTrihealth [facility]07-21-2022 Miscellaneous Notes* Telephone Encounter - Sandra Calderon APRN.CNP - 06/17/2022 10:09 AM EDT The following approved medication requests have been transmitted electronically. Signed Prescriptions Disp Refills atorvastatin (LIPITOR) 20 mg tablet 10 tablet 0 Sig: Take 1 tablet by mouth once daily. LIV: No Authorizing Provider: SANDRA CALDERON APRN.CNP * Telephone Encounter - Shannan Napier - 06/17/2022 9:54 AM EDT Patient spouse phones requesting a 10 day supply to [facility] while waiting on mail order toarrive: Pending Prescriptions Disp Refills ATORVASTATIN 20 MG TABLET 90 tablet 3 Sig: Take 1 tablet by mouth once daily. LIV: No Please review and advise. Shannan Napier documented in this encounterTrihealth [facility]07-20-2022 Miscellaneous Notes* Telephone Encounter - Radha Rodriguez Ma - 06/16/2022 9:05 AM EDT Called left voicemail message to call office back and schedule appointment per below message. 3rd attempt. * Telephone Encounter - Radha Rodriguez Ma - 06/14/2022 5:43 PM EDT Called left voicemail message to call office back and schedule appointment per below message. * Telephone Encounter - Frieda Forrest PA-C - 06/14/2022 5:09 PM EDT I called patient and left detailed message on machine A1c is elevated at 7.1 meaning he is diabetic. Advised to limit carbs, switch to diet pop, limit whole foods at lunch. Please call to schedule appointment to recheck A1c in 3 months (alternate provider okay). Frieda Forrest PA-C documented in this encounterTrihealth [facility]07-18-2022 History of Present illness Narrative* Frieda Forrest PA-C - 06/14/2022 4:28 PM EDT Subjective HPI Patient presents today for yearly appointment with history of HLD, depression, ISAK, kidney stones. He did have a complete physical with labs completed through employer 05/05/2022. Patient was actively passing a kidney stone at this time, so hematuria, elevated creatinine, elevated BP readings noted. Patient has had 3 kidney stones in his life. Has not had evaluation for prevention. Does drink a lot of water throughout the day, 1 dark soda per day. Hyperlipidemia compliant with Lipitor 20 mg daily with no side effects. Diet okay, although he doeseat whole hose every day. Depression mood is well controlled with current medications. ISAK compliant with CPAP machine with no side effects. Patient with history of impaired fasting glucose, normal A1c's in the past. Declines COVID booster in office today. Review of Systems All other systems reviewed and are negative. Past Medical History: PAST MEDICAL HISTORY Diagnosis Date Depressive disorder, not elsewhere classified Mixed hyperlipidemia ISAK (obstructive sleep apnea) compliant Past Surgical History: PAST SURGICAL HISTORY Procedure Laterality Date /11/29 JT/PHALANX W/NEURECT W/DIR CLSR Left partial, mid finger PAST SURGICAL HISTORY OF right knee surgery to insert pins PAST SURGICAL HISTORY OF left eye surgery PAST SURGICAL HISTORY OF wisdom tooth surgery Family History: No family history on file. Social History: Social History Tobacco Use Smoking status: Former Smoker Smokeless tobacco: Current User Types: Snuff Substance Use Topics Alcohol use: Yes Drug use: No Current Medications: buPROPion XL (WELLBUTRIN XL) 150 mg 24 hr tablet, TAKE 1 TABLET EVERY MORNING,Disp: 90 tablet, Rfl: 3 fenofibrate nanocrystallized (TRICOR) 145 mg tablet, Take 1 tablet by mouth once daily., Disp: 90 tablet, Rfl: 3 citalopram (CELEXA) 40 mg tablet, Take 1 tablet by mouth once daily., Disp: 90 tablet, Rfl: 3 atorvastatin (LIPITOR) 20 mg tablet, Take 1 tablet by mouth once daily., Disp: 90 tablet, Rfl: 3 omega-3 fatty acids 1,000 mg cap, Take 2 capsules by mouth once daily., Disp: , Rfl: duzivvxe-ftm-LE-K-lycopene 400-20-370 mcg tab, Take by mouth once daily., Disp: , Rfl: vit V-dyooums-ugze-rutin-hb196 (BIOFLEX) 227-77-25-40 mg tab, Take by mouth once daily., Disp: , Rfl: No facility-administered encounter medications on file as of 06/14/2022. Allergies: ALLERGIES No Known Allergies Vitals: BP 131/84 Pulse 83 Wt 251 lb 9.6 oz (114.1kg) Objective Physical Exam Constitutional: General: He is not in acute distress. Appearance: He is not diaphoretic. HENT: Head: Normocephalic and atraumatic. Right Ear: Tympanic membrane normal. Left Ear: Tympanic membrane normal. Nose: Nose normal. Eyes: General: Right eye: No discharge. Left eye: No discharge. Conjunctiva/sclera: Conjunctivae normal. Pupils: Pupils are equal, round, and reactive to light. Neck: Thyroid: No thyromegaly. Cardiovascular: Rate and Rhythm: Normal rate and regular rhythm. Heart sounds: Normal heart sounds. No murmur heard. Pulmonary: Effort: Pulmonary effort is normal. Breath sounds: Normal breath sounds. No wheezing or rales. Abdominal: General: Bowel sounds are normal. Palpations: Abdomen is soft. Tenderness: There is no abdominal tenderness. There is no rebound. Musculoskeletal: General: No tenderness. Normal range of motion. Cervical back: Normal range of motion and neck supple. Right lower leg: No edema. Left lower leg: No edema. Lymphadenopathy: Cervical: No cervical adenopathy. Skin: General: Skin is warm and dry. Findings: No rash. Neurological: Mental Status: He is alert and oriented to person, place, and time. Cranial Nerves: No cranial nerve deficit. Psychiatric: Mood and Affect: Mood and affect normal. ASSESSMENT/PLAN: 1. Well adult exam - ICD9: V70.0, ICD10: Z00.00 (primary diagnosis) Preventive medicine appropriate for patient's age and gender reviewed in office today. Reviewed complete labs with patient. Will add PSA, A1C, repeat CMP due to elevated creatinine in office today. Discussed the importance of routine exercise and low fat diet. Kidney stone - ICD9: 592.0, ICD10: N20.0 Kidney stone X 3, with last stone > 6 mm. He did pass on his own, but they were concerned about need for stenting. Will proceed with 24 hour urine stone analysis. Pending results, refer to urologyfor further management. Increase fluids. - COMP METABOLIC PANEL Impaired fasting glucose - ICD9: 790.21, ICD10: R73.01 - HGB A1C Weak urinary stream - ICD9: 788.62, ICD10: R39.12 - PSA/PROSTSPECAG DIAG Frieda Forrest PA-C documented in [place] encounterLaura [place] [id number] Miscellaneous Notes* Telephone Encounter - Frieda Forrest PA-C - 03/22/2022 12:19 PM EDT The following approved medication requests have been transmitted electronically. Pending Prescriptions: Disp Refills buPROPion XL (WELLBUTRIN XL) 150 mg 24 hr 90 tablet 3 tablet [Pharmacy Med Name: BUPROPION HCL XL TABS 150MG] Sig: TAKE 1 TABLET EVERY MORNING LIV: Yes Frieda Forrest PA-C * Telephone Encounter - Sherman Aggarwal MA - 03/22/2022 8:21 AM EDT Pharmacy electronically requesting refills as follows: Pending Prescriptions Disp Refills BUPROPION XL 150 MG TAB 90 tablet 3 Sig: TAKE 1 TABLET EVERY MORNING LIV: Yes Please review and advise. Sherman Aggarwal MA [facility] Plan note No data available for this section [facility] evaluation note* Diagnosis Well adult exam- Primary Routine general medical examination at a health care facility Kidney stone Calculus of kidney Impaired fasting glucose Weak urinary stream Slowing of urinary stream [facility]* Diagnosis Type 2 diabetes mellitus without complication, without long-term current use of insulin (HCC)- Primary [facility]* Diagnosis Kidney stones- Primary Calculus of kidney [facility]* Diagnosis Kidney stone- Primary Calculus of kidney Type 2 diabetes mellitus without complication, without long-term current use of insulin (HCC) [facility]* Diagnosis Adult onset diabetes mellitus (HCC)- Primary documented in [facility] encounter [facility]No InformationNortPal[facility] Other Evaluation note* Diagnosis Lumbar back pain- Primary Lumbago Type 2 diabetes mellitus without complication, without long-term current use of insulin (HCC) Well adult exam Routine general medical examination at a health care facility Hyperlipidemia, unspecified hyperlipidemia type Weak urinary stream Slowing of urinary stream documented in this encounter [facility] note* Diagnosis Well adult exam- Primary Routine general medical examination at a health care facility Need for vaccination Need for prophylactic vaccination and inoculation against unspecified single disease Type 2 diabetes mellitus without complication, without long-term current use of insulin (HCC) documented in this encounter [facility] note* Diagnosis Hematuria, unspecified type- Primary documented in this encounter [facility] noteNo assessment information availableKeenan Private [facility] Work Phone: [employer] general Narrative - Reported* Type Description Date Medical History depression Medical History Cholesterol Medical History rt knee injury Medical History lt eye injury Surgical History knee surgery Surgical History eyeslt Surgical History oral surgery Hospitalization History see surgical hx [place] Other Hospital Discharge instructions No data available for this section [place] HospitalProgress note No data available for this section [facility] Summary Purpose Family History No Family History Records FoundNo Family History Records FoundNo Family History Records FoundNo Family History Records Found Advance Directives No Advanced Directives Records Found Advance Directive Response Recorded Date/ Time Advance Directives No December 4:11pm Reason for Referral Specialty Diagnoses / Procedures Referred By Cy tan Referred To Contact Urology Diagnoses Kidney stones Procedures CONSULT TO UROLOGY OFFICE/OUTPATIENT [facility] 60-74 MINUTES Frieda Forrest PA-C [address] [place] [address] Referral ID Status Reason Start Date Expiration Date Visits Requested Visits Authorized [id number] Authorized PCP Requested Referral 06/23/2022 06/23/2023 1 1 Specialty Diagnoses / Procedures Referred By Contac t Referred To Contact Urology Diagnoses Hematuria, unspecified type Procedures CONSULT TO UROLOGY OFFICE/OUTPATIENT NEW HIGH MDM 60-74 MINUTES Frieda Forrest PA-C [address] [place] [address] Referral ID Status Reason Start Date Expiration Date Visits Requested Visits Authorized [id number] Authorized PCP Requested Referral 06/16/2023 06/15/2024 1 1 Specialty Diagnoses / Procedures Referred By Contac t Referred To Contact CT IMAGING Diagnoses Hematuria, unspecified type Procedures CT UROGRAM WO/W IVCON CT ABD & PELVIS W/O CONTRST 1+ BODY REGNS Frieda Forrest PA-C [address] [place] [address] Ct Imaging Referral ID Status Reason Start Date Expiration Date Visits Requested Visits Authorized [id number] Pending Review Auto-Generat ed Referral 06/16/2023 07/15/2024 1 1 Chief Complaint and Reason for Visit Chief Complaint COVID TEST Chief Complaint R31.21 COVID TEST Additional Source Comments Source Comments (unrecognize d section and content) In the event this informatio n is protected by the Federal Confidentiality of Alcohol and Drug Abuse Patient Records regulations: The Federal rules restrict any use of the information to criminally investigate or prosecute any alcohol or drug abuse patient.[facility] the event this information is protected by the Federal Confidentiality of Alcohol and Drug Abuse Patient Records regulations: The Federal rules restrict any use of the information to criminally investigate or prosecute any alcohol or drug abuse patient.[facility] the event this information is protected by the Federal Confidentiality of Alcohol and Drug Abuse Patient Records regulations: The Federal rules restrict any use of the information to criminally investigate or prosecute any alcohol or drug abuse patient.[facility] the event this information is protected by the Federal Confidentiality of Alcohol and Drug Abuse Patient Records regulations: The Federal rules restrict any use of the information to criminally investigate or prosecute any alcohol or drug abuse patient.[facility]In the event this information is protected by the Federal Confidentiality of Alcohol and Drug Abuse Patient Records regulations: The Federal rules restrict any use of the information to criminally investigate or prosecute any alcohol or drug abuse patient.[facility] HospitalIn the event this information is protected by the Federal Confidentiality of Alcohol and Drug Abuse Patient Records regulations: The Federal rules restrict any use of the information to criminally investigate or prosecute any alcohol or drug abuse patient.[facility] HospitalIn the event this information is protected by the Federal Confidentiality of Alcohol and Drug Abuse Patient Records regulations: The Federal rules restrict any use of the information to criminally investigate or prosecute any alcohol or drug abuse patient.[facility] HospitalIn the event this information is protected by the Federal Confidentiality of Alcohol and Drug Abuse Patient Records regulations: The Federal rules restrict any use of the information to criminally investigate or prosecute any alcohol or drug abuse patient.[facility] HospitalIn the event this information is protected by the Federal Confidentiality of Alcohol and Drug Abuse Patient Records regulations: The Federal rules restrict any use of the information to criminally investigate or prosecute any alcohol or drug abuse patient.[facility] HospitalIn the event this information is protected by the Federal Confidentiality of Alcohol and Drug Abuse Patient Records regulations: The Federal rules restrict any use of the information to criminally investigate or prosecute any alcohol or drug abuse patient.[facility] HospitalIn the event this information is protected by the Federal Confidentiality of Alcohol and Drug Abuse Patient Records regulations: The Federal rules restrict any use of the information to criminally investigate or prosecute any alcohol or drug abuse patient.[facility] HospitalIn the event this information is protected by the Federal Confidentiality of Alcohol and Drug Abuse Patient Records regulations: The Federal rules restrict any use of the information to criminally investigate or prosecute any alcohol or drug abuse patient.[facility] HospitalIn the event this information is protected by the Federal Confidentiality of Alcohol and Drug Abuse Patient Records regulations: The Federal rules restrict any use of the information to criminally investigate or prosecute any alcohol or drug abuse patient.[facility] HospitalIn the event this information is protected by the Federal Confidentiality of Alcohol and Drug Abuse Patient Records regulations: The Federal rules restrict any use of the information to criminally investigate or prosecute any alcohol or drug abuse patient.[facility] Reason for Visit (unrecogniz ed section and content) Reason Comments Refill Request Reason Comments Results requesting lab draws and discuss labs drawn for work Reason Comments Results Reason Onset Date Comments Refill Request 06/17/2022 Reason Comments Medication Problem Reason Onset Date Comments Refill Request 06/18/2022 Reason Comments Results Reason Comments Recheck Labs, test results Reason Comments F/U 3 Month Reason Comments Leg Pain Right leg x 1 wk Reason Comments Physical Reason Comments Results Reason Comments Results Urine cytology repor Care Teams (unrecognized sec tion and content) Fitness Plan Coordinator Relationship Specialty Start Date End Date Frieda Forrest PA-C [address] [place] [address] PCP - General Internal Medicine 07/05/19 Fitness Plan Coordinator Relationship Specialty Start Date End Date Frieda Forrest PA-C [address] [place] [address] PCP - General Internal Medicine 07/05/19 Fitness Plan Coordinator Relationship Specialty Start Date End Date Frieda Forrest PA-C [address] [place] [address] PCP - General Internal Medicine 07/05/19 Fitness Plan Coordinator Relationship Specialty Start Date End Date Frieda Forrest PA-C [address] [place] [address] PCP - General Internal Medicine 07/05/19 Fitness Plan Coordinator Relationship Specialty Start Date End Date Frieda Forrest PA-C [address] [place] [address] PCP - General Internal Medicine 07/05/19 Fitness Plan Coordinator Relationship Specialty Start Date End Date Frieda Forrest PA-C [address] [place] [address], [place] [address] PCP - General Internal Medicine 07/05/19 Fitness Plan Coordinator Relationship Specialty Start Date End Date Frieda Forrest PA-C [address] [place] [address], [place] [address] PCP - General Internal Medicine 07/05/19 Fitness Plan Coordinator Relationship Specialty Start Date End Date Frieda Forrest PA-C [address] [place] [address], [place] [address] PCP - General Internal Medicine 07/05/19 Fitness Plan Coordinator Relationship Specialty Start Date End Date Frieda Forrest PA-C [address] [place] [address], [place] [address] PCP - General Internal Medicine 07/05/19 Fitness Plan Coordinator Relationship Specialty Start Date End Date Frieda Forrest PA-C [address] [place] [address], [place] [address] PCP - General Internal Medicine 07/05/19 Fitness Plan Coordinator Relationship Specialty Start Date End Date Frieda Forrest PA-C [address] [place] [address], [place] [address] PCP - General Internal Medicine 07/05/19 Team Status: Active Member Role Status Dates Frieda Forrest PA-C Primary Care Provider Active Team Status: Inactive Member Role Status Dates Frieda Forrest PA-C Primary Care Provider Active Sanjuana Allison BLOWER MECHANIC-C Attending Provider Active Team Status: Inactive Member Role Status Dates Frieda Forrest PA-C Primary Care Provider Active Negro Scanlon MD Attending Provider Active (unrecognized sect ion and content) No Status Records FoundNo Status Records FoundNo Status Records FoundNo Status Records Found INFORMATION SOURCE (unrecogn ized section and content) DATE CREATED AUTHOR 05/19/2022 [facility] DATE CREATED AUTHOR AUTHOR'S ORGANIZ ATION 09/03/2023 [facility] DATE CREATED AUTHOR AUTHOR'S ORGANIZ ATION 11/19/2023 [facility] DATE CREATED AUTHOR AUTHOR'S ORGANIZ ATION 11/26/2023 [facility] Goals (unrecognized section and content) Goals may be documented in a n alternate section FOR RECORDS PERTAINING TO PATIENTS WHO ARE OR HAVE BEEN ENROLLED IN A CHEMICAL DEPENDENCY/SUBSTANCEABUSE PROGRAM, SOME INFORMATION MAY BE OMITTED. This clinical summary was aggregated from multiple sources. Caution should be exercised in using it in the provision of clinical care. This summary normalizes information from multiple sources, and as a consequence, information in this document may materially change the coding, format and clinical context of patient data. In addition, data may be omitted in some cases. CLINICAL DECISIONS SHOULD BE BASED ON THE PRIMARY CLINICAL RECORDS. [facility] [facility]. provides no warranty or guarantee of the accuracy or completeness of information in this document.
[2023-12-02 14:12] LABS: Basophils Percent Auto 0.3 % (0.2-2.0); Eosinophils Absolute Auto 0.2 10^3/uL (0.0-0.7); Eosinophils Percent Auto 2.6 % (0.9-7.0); Hematocrit 39.9 % (42.0-54.0); Hemoglobin 13.4 g/dL (14.0-18.0); Immature Granulocytes Abs Auto 0.01 10^3/uL (0.00-0.03); Immature Granulocytes Pct Auto 0.2 % (0.0-0.5); Lymphocytes Absolute Auto 2.3 10^3/uL (1.2-3.8); Lymphocytes Percent Auto 39.2 % (20.5-60.0); Mean Corpuscular HGB Conc 33.6 g/dL (29.9-35.2); Mean Corpuscular Hemoglobin 28.2 pg (25.9-34.0); Mean Platelet Volume 10.4 fL (9.5-13.5); Monocytes Absolute Auto 0.7 10^3/uL (0.3-0.8); Monocytes Percent Auto 11.9 % (1.7-12.0); Neutrophils Absolute Auto 2.7 10^3/uL (1.4-6.5); Neutrophils Percent Auto 45.8 % (43.0-75.0); Platelet Count 251 10^3/uL (150-450); Red Blood Count 4.75 10^6/uL (4.70-6.10); Red Cell Distribution Width 12.7 % (11.0-15.0); White Blood Count 5.9 10^3/uL (4.0-11.0)
[2023-12-02 14:39] LABS: INR 1.06; Partial Thromboplastin Time 25.7 sec (22.3-36.2); Prothrombin Time 11.2 sec (9.0-11.6)
[2023-12-02 14:49] LABS: Anion Gap 11.1; BUN Creatinine Ratio 18.4; Calcium 9.3 mg/dL (8.5-10.1); Carbon Dioxide 26.9 mmol/L (21.0-32.0); Chloride 103 mmol/L (98-107); Estimated GFR (African America >60 (>=60); Estimated GFR (Non-African Ame >60 (>=60); Glucose 85 mg/dL (74-106); Sodium 137 mmol/L (136-145)
== END 2023-12-02 13:24 | disposition home or self-care (01) ==
LOC: PST 13:23
PROVIDERS: PCP Urology; Visit Provider Urology
DX: Z01.812 Encounter for preprocedural laboratory examination (principal); N20.0 Calculus of kidney
CPT/HCPCS: 80048; 85025; 85610; 85730

== ENCOUNTER 2023-12-15 07:38 | Day surgery (SDC) | payer OTHER, SELFPAY ==
[2023-12-02 14:01] VITALS: BP 135/78; PULSE 86; RESP 16; TEMP 36.3; O2SAT 98; BMI 31.2
[2023-12-15] VITALS (9 sets, daily range): BP systolic 149–174; BP diastolic 84–97; PULSE 68–85; RESP 12–18; TEMP 35.9–36.1; O2SAT 90–99; BMI 30.3
--- OUTSIDE RECORDS SUMMARY | 2023-12-15 07:42 | XMS_ITS | CCD ---
Author Name Unknown Address [address] [place] [address] Organization [facility] Care Team Providers Care In Home Caregiver Name Role Phone Henfling Frieda LIMON Primary Care Provider [phone] KISHA, DR PINO Primary Care Unavailable ELVA, DR POE Admitting Unavailable ELVA, DR POE Consulting Unavailable ELVA, DR POE Attending Unavailable BRINA, DR EMMA Vang Consulting Unavailable Henjayleneing Frieda LIMON Primary Care Provider [phone] Henjayleneing Frieda LIMON Primary Care Provider [phone] Mckinley John Unavailable LIAM FORRESTN N Primary Care Physician DEJA VEE Attending Unavailable HENFLING, FRIEDA N [...] Allison Attending Provider Unavail able BRAXTON Forrest Primary Care Provider MD Negro Scanlon Attending Provider Sanjuana Allison [...] Medication Allergies] Propensity to adverse reactions (disorder) [facility] Repository Medications Current Medications Medication Drug Class(es) Dates Sig (Normalized) Sig (Original) acetaminophen 325 mg / HYDROcodone bitartrate 5 mg oral tablet (4 sources) Opioid Agonist Start: 05-08-2022 take 1 tablet by mouth twice daily Hydrocodone-Aceta minophen Active 1 TAB PO Twice daily 6 3 May 08, 2022 Start: 01-13-2019 End: 01-15-2019 take 1 tablet by mouth every four to six hours Hydrocodone-Acetaminophen (Redding) 5-325 mg Tablet Discontinued 1 TAB PO [...] Refill(s) 0 Start Date: 05/13/22 Status: Ordered Quxcrkbj-Okh-Bwbuu- Vit K-Lycop (One-A-Day Men's Multivitamin) 400-20-300 mcg Tablet (2 sources) Start: 05-08-20 take 1 tablet by mouth once daily Mkoohupo-Jvf-Ejhtx-Vit K-Lycop (One-A-Day Men's Multivitamin) 400-20-300 mcg Tablet Active 1 TAB PO Daily May 07, 2022 11:00pm naproxen 500 mg oral tablet (2 sources) Nonsteroidal Anti-inflammatory Drug Start: 05-08-20 take 1 tablet by mouth twice daily Naproxen (Naprosyn) 500 mg tablet Active 500 MG PO Twice daily 14 7 May 07, 2022 11:00pm Newton 5-Leb-Lgo-Fish Oil (Fish Oil) 1,000 mg (120 mg-180 mg) Capsule (2 sources) Start: 05-08-20 take 1 capsule by mouth twice daily Newton 1-Olh-Zyj-Fish Oil (Fish Oil) 1,000 mg (120 mg-180 mg) Capsule Active 1 CAP PO Twice daily May 07, 2022 11:00pm Newton-3 (2 sources) Start: 05-13-20 Newton-3 Refill(s) 0 Start Date: 05/13/22 Status: Ordered [...] PO Daily May 07, 2022 11:00pm Vit B-Cbyxnnm-Uawr-Rutin-Hb 196 (Bioflex) 078-03-90-40 mg Tablet (2 sources) Start: 01-13-2019 take 1 tablet by mouth once daily Vit B-Ecegefn-Cjwh-Yanci n-Hb196 (Bioflex) 373-00-43-40 mg Tablet Active 1 TAB PO Daily [...] completed, # 2 tab(s), Refills(s) 0, Pharmacy: [facility], 188, cm, 08/22/23 15:16:00 EDT, [...] in the CT contrast administration guidelines link. mkvxqvjj-iqd-OS-K-ly copene 400-20-370 mcg tab (14 sources) pyempjzp-wrl-LS- K-ly copene 400-20-370 mcg tab Take by mouth once daily. 0 Active Comment on above: Take by mouth once d aily. Msqioagx-Xxv-Xakxrka Fumarate (Multi Vitamin) 9 mg iron/15 mL Liquid (2 sources) Start: 2018 End: 2021 take 1 tablet by mouth once daily Qrurmpmq-Ayx-Rypvzwo Fumarate (Multi Vitamin) 9 mg iron/15 mL [...] To be provided with radiology test. vit S-sdlwuie-dvot-rutin -hb196 (BIOFLEX) 504-74-35-40 mg tab (7 sources) vit X-xijugft-nmmp-rutin -hb196 (BIOFLEX) 559-23-22-40 mg tab Take by mouth once daily. 0 Active Comment on above: Take by mouth once d aily. vit U-jjatqef-hbkt-rutin -hb196 529-91-46-40 mg tab (7 sources) vit Q-xrobhmd-hsvy-rutin -hb196 434-60-25-40 mg tab Take by mouth once daily. [...] Test Name Value Interpretation Reference Range Facility [facility] 12-05-2023 Lab Reports [id number]#1.00TIFF Normal [facility] Lab Reports [id number]#1.00TIFF Normal [facility] Consent for Procedure/Surger yon 11-25-2023 Consent for Procedure/Surgery [id number]#1.00TIFF Normal [facility] 11-22-2023 Lab Reports [id number]#1.00TIFF Normal [facility] RAD - MISCon 11-08-2023 RAD - MISC [id number]#1.00TIFF Normal [facility] Operative Reporton Operative Report [id number]#1.00TIFF Normal [facility] ECG 12-Leadon 10-28-2023 ECG 12-Lead [id number]#1.00TIFF Normal [facility] 10-28-2023 Lab Reports [id number]#1.00TIFF Normal [facility] COVID-19 FRon 10-25-2023 SARS-CoV-2 (COVID-19) RNA RUDY+probe Ql (Unsp spec) Negative Normal Negative [facility] Comment on above: Order Comment: Healt hcare Worker?: N Result Comment: Testing for SARS-CoV-2 by RT-PCR This test was developed and its performance characteristics determined by [employer] ([place]) and validated at the [facility]. This test has not been FDA cleared [...] is terminated or revoked sooner. PERFORMED BY: [place] [address] PATHOLOGIST NURSING EDUCATION SPECIALIST MARSHAL EDWARD M.D. Performed By: #### C OVID 19 [facility] #### [address] COVID-19 Positive/NegativeOr dered By: Sanjuana Allison on 10-25-2023 SARS-CoV-2 (COVID-19) N gene RUDY+probe Ql (Resp) Negative Negative [facility] Comment on above: Testing for SARS-CoV -2 by RT-PCRThis test was developed and its performance characteristics determined by [employer] ([employer]) and validated at the [facility]. This test has not been FDA cleared [...] (COVID-19) RNA RUDY+probe Ql (Unsp spec) N/A [facility] Consent for Procedure/Surger yon 09-22-2023 Consent for Procedure/Surgery [id number]#1.00TIFF Normal [facility] Operative Reporton Operative Report [id number]#1.00TIFF Normal [facility] RAD - CT Reporton 09-07-2023 RAD - CT Report [id number]#1.00TIFF Normal [facility] CT abdomen pelvis wo/w conon 09-05-2023 CT abdomen pelvis wo/w con [facility] [place] [address] CT Scan Report Signed Patient: Bobbi Garrison MR#: [id number] : 1970 Acct:[id number] Age/Sex: 53 / M ADM Date: 08/22/23 [...] mass. Impression dictated by: Beck Crump Jr., D.O.09/05/2023 6:01 PM Dictation Location: RADIO-PC-15 Transcribed By: [facility] 09/05/231800 Dictated By: Beck Crump Jr, DO 09/05/23 1756 Signed By: 09/05/231800 [facility] Leslye [facility] -- BOBBI GARRISON ([id number]) 1970 M Date Time Provider Department 08/30/23 [facility]REST [facility] During your visit today, we recorded the following information about you: Sherman Aggarwal MA 08/30/2023 9:32 AM Signed Received Urine reports from sis cabello. Placed in pcp inbox for review. Sherman [...] 2 capsules by mouth once daily. - gswvxuod-enr-FF-K-lycopene 400-20-370 mcg tab Take by mouth once daily. - vit I-yqmwumu-hupz-rutin-hb196 568-33-44-40 mg tab Take by mouth once daily. Problem List As Of Date 08/30/2023 Noted Resolved Mixed hyperlipidemia [E78.2] 12/30/2016 Depression [F32.A] 05/11/2018 ISAK (obstructive sleep apnea) [G47.33] 03/24/2020 Encounter Status:Closed by SHERMAN AGGARWAL on 08/30/23 Normal [facility] Urine Cytology ([facility])on Urine Cytology Diagnosis Info Invalid Interpretation Code [facility] Comment on above: Result Comment: A:Ur ine,Urine:Voided Interpretation - MicroScopic Description - Adequacy - Gross Description Site ID:A color Yellow fixative Alcohol Specimen designated Urine received in alcohol preservative and labeled with the patient?s name, consists of 110ml clear yellow fluid. Electronically signed by : on: 08/29/2023 14:28:36 Performed By: #### 1 [id number] ####[facility] [address] [place] [address] Pre-Certification Formon Pre-Certification Form [id number]#1.00CD:127 Normal [facility] Consent for Procedure/Surger yon 08-25-2023 Consent for Procedure/Surgery [id number]#1.00CD:127 Normal [facility] Physician Referralon 023 Physician Referral [id number]#1.00CD:127 Normal [facility] Ambulatory Visit Summaryon 0 08-22-2023 Ambulatory Visit Summary BOBBI GARRISON :1970 MRN:[id number] Visit Date:08/22/2023 Ambulatory Visit Instructions Your Diagnosis Kidney stones Asymptomatic microscopic hematuria Screening PSA (prostate specific antigen) Tests Performed Urnls Dip Stick Auto w/o Microscopy POC [address] CT Urogram -- Results Pending -- Please [...] multivitamin (Multi Vitamin+) omega-3 polyunsaturated fatty acids (Newton-3) Procedures Performed ESWL of kidney (11/04/2016), Extraction [...] Following Appointments Follow Up with ELVA RODRÍGUEZ, Negro Vang, BECCA When: Where: [facility] [address] , [place] [address] [phone] Medications What How Much When Instructions Unchanged [...] or concerns Unchanged omega-3 polyunsaturated fatty acids (Newton-3) Contact prescribing physician if questions or concerns Test Results Urnls Dip Stick Auto w/o Microscopy POC 56555 (08/22/2023) Bilirubin Urine Dipstick - Negative Blood Urine Dipstick - 1+ Small Glucose Urine Dipstick - Negative Ketones Urine Dipstick - Negative Leukocytes Urine Dipstick - Trace Nitrite Urine Dipstick - Negative Protein Urine Dipstick - Negative Specific [place] Urine Dipstick - 1.020 Urine Appearance Urine [...] ? 8 oz (237 mL) of milk, utzrmod-gwxtvauytwqe-qrlcu milk, and calcium-fortifiedfruit juice. Calcium-fortified means that [...] deli foods. (more content not included)... Normal [facility] Patient Educationon 08-22-20 Patient Education Nephrology Dietary [...] ? 8 oz (237 mL) of milk, azzrmzd-oxjoibbsnkbn-jrnlf milk, and calcium-fortifiedfruit juice. Calcium-fortified means that [...] Spinach (cooked), rhubarb, beets, sweet potatoes, and Irish chard. ? Peanuts. ? Potato chips, burmese fries, and baked potatoes with skin on. ? Nuts and nut products. ? Chocolate. ? If you regularly take a diuretic medicine, make sure to eat at least 1 or 2 servings of fruits or vegetables that are high in potassium each day. These include: ? Avocado. ? Banana. ? Thorndike, prune, carrot, or tomato juice. ? Baked [...] fish oil, or vitamin B6. ? Take qjtc-svw-fodlnzs and prescription medicines only as told by your health care provider. These include supplements. What foods should I limit? Limit your in (more content not included)... Normal [facility] Urine Cytology ([facility])on 0 08-22-2023 Method of Extraction Voided Normal F [facility] Comment on above: Performed By: #### 1 [id number] ####[facility] [address] [place] [id number] Number of Jars 1 Invalid Interpretation Code [facility] Comment on above: Performed By: #### 1 [id number] ####[facility] [address] [place] [id number] Specimen Urine Normal [facility] Comment on above: Performed By: #### 1 [id number] ####[facility] [address] [place] [address] Type of Service Technical Only Normal Oracio lambert [facility] Comment on above: Performed By: #### 1 [id number] ####[facility] [address] [place] [address] [facility] 06-16-2023 CNPN Telephone ([facility]) -- BOBBI GARRISON ([id number]) 1970 M Date Time Provider Department 06/16/23 FRIEDA FORREST [facility] During your visit today, we recorded [...] He is seeing urologist Dr Scanlon in [place] and they were told the office needs the consult and records Please advise - patient only had phone number of office [phone] Sherman Aggarwal MA 06/30/2023 2:03 PM Signed Faxed last OV and order with demographics to Dr. Sky's office. Patient informed. Sherman Aggarwal MA June 30, 2023 2:02 PM Allergies As of Date: 06/16/2023 (No Known Allergies) Date Reviewed: 06/15/2023 Reviewed by: Stacey Cruz MA - Fully Assessed Reason for Visit: Results [95] Primary Visit Diagnosis:Hematuria, unspecified type [R31.9] Order(s):CT UROGRAM WO/W IVCON [7471376] Order #: [id number] FUTURE [] iv contrast (will be provided [...] 0 CONSULT TO UROLOGY [9041] Order #: [id number]: [id number] FUTURE Prescriptions as of 06/30/2023 - [...] 2 capsules by mouth once daily. - vgcuetet-ahx-PI-K-lycopene 400-20-370 mcg tab Take by mouth once daily. - vit D-vostoqe-crpp-rutin-hb196 772-65-34-40 mg tab Take by mouth once daily. [...] to line (more content not included)... Normal [facility] ALBUMIN/CREAT RATIO RND URon 06-15-2023 Albumin DL <= 20 mg/L (U) [Mass/Vol] 32.3 mg/L Normal [facility] Comment on above: Order Comment: Speci men Type: URINE SPECIMEN Ordering Facility: [facility] Address: [address] [place] [phone] Performed By: #### L [id number] #### [facility] CLIA [id number] [address] [place] [address] [place] Albumin/Creatinine (U) [Mass ratio] 22 mg/g Normal <30 [facility] Comment on above: Order Comment: Speci men Type: URINE SPECIMEN Ordering Facility: [facility] Address: [address] [place] [address] Result Comment: Adul t Male and Female Nephrotic Criteria: <30 mg/g is considered normal to mildly increased 30-300 mg/g is considered moderately increased >300 mg/g is considered severely increased KDIGO. (2013). KDIGO 2012 Clinical Practice Guideline for the Evaluation and Management of Chronic Kidney Disease. Official Journal of the International Society of Nephrology, 3(1), 1-150. Performed By: #### L [id number] #### [facility] CLIA [id number] [address] [place] [address] [place] Creatinine (U) [Mass/Vol] 145.4 mg/dL Normal 20.0-300.0 [facility] Comment on above: Order Comment: Speci men Type: URINE SPECIMEN Ordering Facility: [facility] Address: [address] [place] [address] Performed By: #### L [id number] #### [facility] CLIA [id number] [address] [place] [address] [place] CBC W Auto Differential pane l (Bld)on 06-15-2023 Basophils (Bld) [#/Vol] 10*3/uL Normal <0.11 C [facility] Comment on above: Order Comment: Speci men Type: URINE SPECIMEN Ordering Facility: [facility] Address: [address] [place] [address] Performed By: #### L [id number] #### [facility] CLIA [id number] [address] [place] [address] [place] Basophils/100 WBC (Bld) 0.4 % Normal [facility] Comment on above: Order Comment: Speci men Type: URINE SPECIMEN Ordering Facility: [facility] Address: [address] Performed By: #### L [id number] #### [facility] CLIA [id number] [address] [place] [address] [place] Differential cell count method Nom (Bld) Auto Normal [facility] Comment on above: Order Comment: Speci men Type: URINE SPECIMEN Ordering Facility: [facility] Address: [address] [place], [place] [address] Performed By: #### L [id number] #### [facility] CLIA [id number] [address] [place] [address] [place] Eosinophils (Bld) [#/Vol] 0.08 10*3/uL Normal <0.46 [facility] Comment on above: Order Comment: Speci men Type: URINE SPECIMEN Ordering Facility: [facility] Address: [address] [place], [place] [address] Performed By: #### L [id number] #### [facility] CLIA [id number] [address] [place] [address] [place] Eosinophils/100 WBC (Bld) 1.5 % Normal [facility] Comment on above: Order Comment: Speci men Type: URINE SPECIMEN Ordering Facility: [facility] Address: [address] [place], [place] [address] Performed By: #### L [id number] #### [facility] CLIA [id number] [address] [place] [address] [place] Erythrocyte distribution width (RBC) [Ratio] 12.6 % Normal 11.5-15.0 [facility] Comment on above: Order Comment: Speci men Type: URINE SPECIMEN Ordering Facility: [facility] Address: [address] [place], [place] [address] Performed By: #### L [id number] #### [facility] CLIA [id number] [address] [id number] [address] [place] Hematocrit (Bld) [Volume fraction] 42.4 % Normal 39.0-51.0 [facility] Comment on above: Order Comment: Speci men Type: URINE SPECIMEN Ordering Facility: [facility] Address: [address] [place], [place] [address] Performed By: #### L [id number] #### [facility] CLIA [id number] [address] [place] [address] [place] Hemoglobin (Bld) [Mass/Vol] 14.5 g/dL Normal 13.0-17.0 [facility] Comment on above: Order Comment: Speci men Type: URINE SPECIMEN Ordering Facility: [facility] Address: [address] [place], [place] [address] Performed By: #### L [id number] #### [facility] CLIA [id number] [address] [place] [address] [place] Immature granulocytes (Bld) [#/Vol] 10*3/uL Normal <0.10 [facility] Comment on above: Order Comment: Speci men Type: URINE SPECIMEN Ordering Facility: [facility] Address: [address] [place], [place] [address] Performed By: #### L [id number] #### [facility] CLIA [id number] [address] [place] [address] [place] Immature granulocytes/100 WBC (Bld) 0.2 % Normal [facility] Comment on above: Order Comment: Speci men Type: URINE SPECIMEN Ordering Facility: [facility] Address: [address] [place], [place] [address] Performed By: #### L [id number] #### [facility] CLIA [id number] [address] [place] [address] [place] Lymphocytes (Bld) [#/Vol] 2.49 10*3/uL Normal 1.00-4.00 [facility] Comment on above: Order Comment: Speci men Type: URINE SPECIMEN Ordering Facility: [facility] Address: [address] [place] [address] Performed By: #### L [id number] #### [facility] CLIA [id number] [address] [place] [facility] Lymphocytes/100 WBC (Bld) 45.2 % Normal [facility] Comment on above: Order Comment: Speci men Type: URINE SPECIMEN Ordering Facility: [facility] Address: [address] Performed By: #### L [id number] #### [facility] CLIA [id number] [address] [place] [address] [place] MCH (RBC) [Entitic mass] 28.6 pg Normal 26.0-34.0 [facility] Comment on above: Order Comment: Speci men Type: URINE SPECIMEN Ordering Facility: [facility] Address: [address] Performed By: #### L [id number] #### [facility] CLIA [id number] [address] [place] [address] [place] MCHC (RBC) [Mass/Vol] 34.2 g/dL Normal 30.5-36.0 [facility] Comment on above: Order Comment: Speci men Type: URINE SPECIMEN Ordering Facility: [facility] Address: [address] [place] [address] Performed By: #### L [id number] #### [facility] CLIA [id number] [address] [place] [address] [place] MCV (RBC) [Entitic vol] 83.6 fL Normal 80.0-100.0 C [facility] Comment on above: Order Comment: Speci men Type: URINE SPECIMEN Ordering Facility: [facility] Address: [address] [place] [address] Performed By: #### L [id number] #### [facility] CLIA [id number] [address] [place] [address] [place] Monocytes (Bld) [#/Vol] 0.54 10*3/uL Normal <0.87 [facility] Comment on above: Order Comment: Speci men Type: URINE SPECIMEN Ordering Facility: [facility] Address: [address] Performed By: #### L [id number] #### [facility] CLIA [id number] [address] [place] [address] [place] Monocytes/100 WBC (Bld) 9.8 % Normal [facility] Comment on above: Order Comment: Speci men Type: URINE SPECIMEN Ordering Facility: [facility] Address: [address] [place], [place] [address] Performed By: #### L [id number] #### [facility] CLIA [id number] [address] [place] [address] [place] Neutrophils (Bld) [#/Vol] 2.37 10*3/uL Normal 1.45-7.50 [facility] Comment on above: Order Comment: Speci men Type: URINE SPECIMEN Ordering Facility: [facility] Address: [address] [place], [place] [address] Performed By: #### L [id number] #### [facility] CLIA [id number] [address] [place] [address] [place] Neutrophils/100 WBC (Bld) 42.9 % Normal [facility] Comment on above: Order Comment: Speci men Type: URINE SPECIMEN Ordering Facility: [facility] Address: [address] [place], [place] [address] Performed By: #### L [id number] #### [facility] CLIA [id number] [address] [place] [address] [place] Nucleated RBC (Bld) [#/Vol] 10*3/uL Normal <0.01 [facility] Comment on above: Order Comment: Speci men Type: URINE SPECIMEN Ordering Facility: [facility] Address: [address] Performed By: #### L [id number] #### [facility] CLIA [id number] [address] [place] [address] [place] Nucleated RBC/100 WBC (Bld) [Ratio] 0.0 /100 WBC Normal [facility] Comment on above: Order Comment: Speci men Type: URINE SPECIMEN Ordering Facility: [facility] Address: [address] Performed By: #### L [id number] #### [facility] CLIA [id number] [address] [place] [address] [place] Platelet mean volume (Bld) [Entitic vol] 11.2 fL Normal 9.0-12.7 [facility] Comment on above: Order Comment: Speci men Type: URINE SPECIMEN Ordering Facility: [facility] Address: [address] Performed By: #### L [id number] #### [facility] CLIA [id number] [address] [place] [address] [place] Platelets (Bld) [#/Vol] 272 10*3/uL Normal 150-400 [facility] Comment on above: Order Comment: Speci men Type: URINE SPECIMEN Ordering Facility: [facility] Address: [address] Performed By: #### L [id number] #### [facility] CLIA [id number] [address] [place] [address] [place] RBC (Bld) [#/Vol] 5.07 10*6/uL Normal 4.20-6.00 [facility] Comment on above: Order Comment: Speci men Type: URINE SPECIMEN Ordering Facility: [facility] Address: [address] Performed By: #### L [id number] #### [facility] CLIA [id number] [address] [place] [id number] [place] WBC (Bld) [#/Vol] 5.51 10*3/uL Normal 3.70-11.00 [facility] Comment on above: Order Comment: Speci men Type: URINE SPECIMEN Ordering Facility: [facility] Address: [address] [place] [address] Performed By: #### L [id number] #### [facility] CLIA [id number] [address] [place] [id number] [place] CNOVon 06-15-2023 CNOV Office Visit ([facility] ) -- BOBBI GARRISON ([id number]) 1970 M Date Time Provider Department 06/15/23 3:00 PM FRIEDA FORREST [facility] During your visit today, we recorded the following information about you: Pulse Blood pressure Weight Height 84/minute 132/82 112.9 kg 1.905 m Stacey Cruz MA 06/15/2023 2:51 PM Signed [facility] FACTS Please visit our lab at least 3-5 days before your scheduled appointment to have your lab work drawn, if lab work is ordered. This will allow us the ability to review your lab work results with you during your scheduled visit. [facility] LAB HOURS: Lab is open Tuesday - Tuesday from 6:30am to 5pm and open 8am -12pm on Saturdays. [facility] LAB HOURS: Tuesday- 7:30am to 5:30pm. Fridays [...] medicine, or pediatrics at any of [email or web address] locations and main campus. Frieda Forrest PA-C [...] History: PAST SURGICAL HISTORY Procedure Laterality Date 11/29 JT/PHALANX W/NEURECT W/DIR CLSR Left partial, mid [...] by mouth once daily., Disp: , Rfl: nelvutip-dqy-SA-K-lycopene 400-20-370 mcg tab, Take by mouth once daily., Disp: , Rfl: vit N-jdtfxdn-dfwa-rutin-hb196 035-64-39-40 mg tab, Take by mouth once daily., [...] 90 t (more content not included)... Normal [facility] Comprehensive metabolic 2000 panelon 06-15-2023 Albumin [Mass/Vol] 5.0 g/dL High 3.9-4.9 [facility] Comment on above: Order Comment: Speci men Type: URINE SPECIMEN Ordering Facility: [facility] Address: [address] [place] [id number] Performed By: #### L [id number] #### [facility] CLIA [id number] [address] [place] [address] [place] ALP [Catalytic activity/Vol] 37 U/L Low 38-113 [facility] Comment on above: Order Comment: Speci men Type: URINE SPECIMEN Ordering Facility: [facility] Address: [address] [place], [place] [address] Performed By: #### L [id number] #### [facility] CLIA [id number] [address] [place] [address] [place] ALT [Catalytic activity/Vol] 44 U/L Normal 10-54 [facility] Comment on above: Order Comment: Speci men Type: URINE SPECIMEN Ordering Facility: [facility] Address: [address] [place], [place] [address] Performed By: #### L [id number] #### [facility] CLIA [id number] [address] [place] [address] [place] Anion gap [Moles/Vol] 13 mmol/L Normal 9-18 [facility] Comment on above: Order Comment: Speci men Type: URINE SPECIMEN Ordering Facility: [facility] Address: [address] [place], [place] [address] Performed By: #### L [id number] #### [facility] CLIA [id number] [address] [place] [address] [place] AST [Catalytic activity/Vol] 32 U/L Normal 14-40 [facility] Comment on above: Order Comment: Speci men Type: URINE SPECIMEN Ordering Facility: [facility] Address: [address] [place], [place] [address] Performed By: #### L [id number] #### [facility] CLIA [id number] [address] [place] [address] [place] Bilirubin [Mass/Vol] 0.4 mg/dL Normal 0.2-1.3 [facility] Comment on above: Order Comment: Speci men Type: URINE SPECIMEN Ordering Facility: [facility] Address: [address] Performed By: #### L [id number] #### [facility] CLIA [id number] [address] [place] [address] [place] Calcium [Mass/Vol] 9.7 mg/dL Normal 8.5-10.2 [facility] Comment on above: Order Comment: Speci men Type: URINE SPECIMEN Ordering Facility: [facility] Address: [address] Performed By: #### L [id number] #### [facility] CLIA [id number] [address] [place] [address] [place] Chloride [Moles/Vol] 103 mmol/L Normal 97-105 [facility] Comment on above: Order Comment: Speci men Type: URINE SPECIMEN Ordering Facility: [facility] Address: [address] Performed By: #### L [id number] #### [facility] CLIA [id number] [address] [place] [address] [place] CO2 [Moles/Vol] 23 mmol/L Normal 22-30 [facility] Comment on above: Order Comment: Speci men Type: URINE SPECIMEN Ordering Facility: [facility] Address: [address] [place] [address] Performed By: #### L [id number] #### [facility] CLIA [id number] [address] [place] [address] [place] Creatinine [Mass/Vol] 1.09 mg/dL Normal 0.73-1.22 [facility] Comment on above: Order Comment: Speci men Type: URINE SPECIMEN Ordering Facility: [facility] Address: [address] Performed By: #### L [id number] #### [facility] CLIA [id number] [address] [place] [address] [place] ESTIMATED GLOMERULAR FILTRATION RATE 82 mL/min/1.73m??? Normal >=60 [facility] Comment on above: Order Comment: Speci men Type: URINE SPECIMEN Ordering Facility: [facility] Address: [address] [place] [address] Result Comment: [place] mated Glomerular Filtration Rate [...] reflect actual GFR. Performed By: #### L [id number] #### [facility] CLIA [id number] [facility] [place] [address] [place] Glucose [Mass/Vol] 87 mg/dL Normal 74-99 [facility] Comment on above: Order Comment: Speci men Type: URINE SPECIMEN Ordering Facility: [facility] Address: [address] [place] [address] Result Comment: The [place] Diabetes Association (ADA) provides guidance for cutoff [...] Standards of Medical Care in Diabetes 2016, [place] Diabetes Association. Diabetes Care. 2016.39(Suppl 1). Performed By: #### L [id number] #### [facility] CLIA [id number] [address] [place] [address] [place] Potassium [Moles/Vol] 4.2 mmol/L Normal 3.7-5.1 [facility] Comment on above: Order Comment: Speci men Type: URINE SPECIMEN Ordering Facility: [facility] Address: [address] [place] [address] Performed By: #### L [id number] #### [facility] CLIA [id number] [address] [place] [address] [place] Protein [Mass/Vol] 7.5 g/dL Normal 6.3-8.0 [facility] Comment on above: Order Comment: Speci men Type: URINE SPECIMEN Ordering Facility: [facility] Address: [address] [place], [place] [address] Performed By: #### L [id number] #### [facility] CLIA [id number] [address] [place] [address] [place] Sodium [Moles/Vol] 139 mmol/L Normal 136-144 [facility] Comment on above: Order Comment: Speci men Type: URINE SPECIMEN Ordering Facility: [facility] Address: [address] [place], [place] [address] Performed By: #### L [id number] #### [facility] CLIA [id number] [address] [place] [address] [place] Urea nitrogen [Mass/Vol] 15 mg/dL Normal 9-24 [facility] Comment on above: Order Comment: Speci men Type: URINE SPECIMEN Ordering Facility: [facility] Address: [address] [place] [address] Performed By: #### L [id number] #### [facility] CLIA [id number] [address] [place] [address] [place] HbA1c (Bld)on 06-15-2023 Average glucose Estimated from glycated hemoglobin (Bld) [Mass/Vol] 154 mg/dL Normal [facility] Comment on above: Order Comment: Speci men Type: BLOOD SPECIMEN Ordering Facility: [facility] Address: [address] [place] [address] Result Comment: eAG: (Estimated average glucose) is a calculated value from HgbA1c and is textile designs sales representative of the average blood glucose level in the last 2-3 month period. Performed By: #### 5 5454-3 #### [facility] CLIA [id number] [address] [place] [address] [place] HbA1c (Bld) [Mass fraction] 7.0 % High 4.3-5.6 [facility] Comment on above: Order Comment: Speci men Type: BLOOD SPECIMEN Ordering Facility: [facility] Address: [address] [place] [address] Result Comment: Amer [place] Diabetes Association guidelines indicate that patients with HgbA1c in the range 5.7-6.4% are at increased risk for development of diabetes, and intervention by lifestyle modification may be beneficial. HgbA1c greater or equal to 6.5% is considered diagnostic of diabetes. Performed By: #### 5 5454-3 #### [facility] CLIA [id number] [address] [place] [address] [place] Lipid 1996 panelon 3 Cholesterol [Mass/Vol] 151 mg/dL Normal <200 [facility] Comment on above: Order Comment: Speci men Type: URINE SPECIMEN Ordering Facility: [facility] Address: [address] [place] [address] Result Comment: <200 mg/dL, Desirable 200-239 mg/dL, Borderline high >239 mg/dL, High Performed By: #### L [id number] #### [facility] CLIA [id number] [address] [place] [address] [place] Cholesterol in HDL [Mass/Vol] 37 mg/dL Low >39 [facility] Comment on above: Order Comment: Speci men Type: URINE SPECIMEN Ordering Facility: [facility] Address: [address] [place] [address] Result Comment: 40-5 9 mg/dL, Acceptable >59 mg/dL, High: Negative risk factor for coronary heart disease <40 mg/dL, Low: Positive risk factor for coronary heart disease Performed By: #### L [id number] #### [facility] CLIA [id number] [facility] [address] Cholesterol in LDL [Mass/Vol] 76 mg/dL Normal <100 [facility] Comment on above: Order Comment: Speci men Type: URINE SPECIMEN Ordering Facility: [facility] Address: [address] [place] [address] Result Comment: <100 mg/dL, Optimal 100-129 mg/dL, Near optimal/above optimal 130-159 mg/dL, Borderline high 160-189 mg/dL, High >189 mg/dL, Very high Secondary prevention optimal LDL Cholesterol levels are recommended to be < 70 mg/dL Performed By: #### L [id number] #### [facility] CLIA [id number] [address] [place] [address] Cholesterol in LDL/Cholesterol in HDL [Mass ratio] 2.05 {ratio} Normal <2.54 [facility] Comment on above: Order Comment: Speci men Type: URINE SPECIMEN Ordering Facility: [facility] Address: [address] [place] [address] Result Comment: Refjose martinezce: 1. National Cholesterol Education Program ATP III Guideline At-A-Glance Quick Desk Reference: National Heart, Lung, and Blood [place]. National Institutes of Health. 2001: NIH Publication No. 01-3305. 2. An International Atherosclerosis Society position paper: global recommendations for the management of dyslipidemia: executive summary, Atherosclerosis. 2014: 232(2):410-413. Performed By: #### L [id number] #### [facility] CLIA [id number] [address] [place] [address] OF [facility] Cholesterol in VLDL [Mass/Vol] 38 mg/dL High <30 [facility] Comment on above: Order Comment: Speci men Type: URINE SPECIMEN Ordering Facility: [facility] Address: [address] [place] [address] Performed By: #### L [id number] #### [facility] CLIA [id number] [address] [place] [address] [place] Cholesterol non HDL [Mass/Vol] 114 mg/dL Normal <130 [facility] Comment on above: Order Comment: Speci men Type: URINE SPECIMEN Ordering Facility: [facility] Address: [address] [place] [address] Result Comment: <130 mg/dL, Optimal 130-159 mg/dL, Near optimal/above optimal 160-189 mg/dL, Borderline high 190-219 mg/dL, High >219 mg/dL, Very high Secondary prevention optimal non HDL Cholesterol levels are recommended to be <100 mg/dL Performed By: #### L [id number] #### [facility] CLIA [id number] [address] [place] [address] [place] Cholesterol.total/Neeru sterol in HDL [Mass ratio] 4.08 {ratio} Normal <5.10 [facility] Comment on above: Order Comment: Speci men Type: URINE SPECIMEN Ordering Facility: [facility] Address: [address] Performed By: #### L [id number] #### [facility] CLIA [id number] [address] [place] [address] [place] FASTING TIME 3 hrs Normal [facility] Comment on above: Order Comment: Speci men Type: URINE SPECIMEN Ordering Facility: [facility] Address: [address] [place] [address] Performed By: #### L [id number] #### [facility] CLIA [id number] [address] [place] [address] [place] Triglyceride [Mass/Vol] 189 mg/dL High <150 [facility] Comment on above: Order Comment: Speci men Type: URINE SPECIMEN Ordering Facility: [facility] Address: [address] [place] [address] Result Comment: <150 mg/dL, Normal 150-199 mg/dL, Borderline high 200-499 mg/dL, High >499 mg/dL, Very high Performed By: #### L [id number] #### [facility] CLIA [id number] [address] [place] [address] [place] PSA SerPl-mCncon 06-15-2023 Prostate specific Ag [Mass/Vol] 1.08 ng/mL Normal <2.60 [facility] Comment on above: Order Comment: Speci men Type: URINE SPECIMEN Ordering Facility: [facility] Address: [address] [place] [address] Result Comment: Tota l PSA test methodology used is the Electrochemiluminescence Immunoassay by [employer]. Total PSA values by differing methodologies cannot be interchanged. Performed By: #### L [id number] #### [facility] CLIA [id number] [address] [place] [address] [place] TSH SerPl-aCncon 06-15-2023 TSH Qn 1.280 m[IU]/L Normal 0.270-4.20 0 [facility] Comment on above: Order Comment: Speci men Type: URINE SPECIMEN Ordering Facility: [facility] Address: [address] [place] [address] Performed By: #### L [id number] #### [facility] CLIA [id number] [address] [place] [address] [place] URINALYSIS, REFLEX MICROSCOP ICon 06-15-2023 Bilirubin Ql (U) Negative Normal Negative [facility] Comment on above: Order Comment: Speci men Type: URINE SPECIMEN Ordering Facility: [facility] Address: [address] [place] [address] Performed By: #### L [id number] #### [facility] CLIA [id number] [address] [place] [address] [place] Clarity (Unsp spec) Clear Normal Clear [facility] Comment on above: Order Comment: Speci men Type: URINE SPECIMEN Ordering Facility: [facility] Address: [address] [place] [address] Performed By: #### L [id number] #### [facility] CLIA [id number] [address] [place] [address] [place] Color (U) Light Yellow Normal Yellow [facility] Comment on above: Order Comment: Speci men Type: URINE SPECIMEN Ordering Facility: [facility] Address: [address] [place] [address] Performed By: #### L [id number] #### [facility] CLIA [id number] [address] [place] [address] [place] Glucose Test strip (U) [Mass/Vol] Negative Normal Trace, Negative [facility] Comment on above: Order Comment: Speci men Type: URINE SPECIMEN Ordering Facility: [facility] Address: [address] Performed By: #### L [id number] #### [facility] CLIA [id number] [address] [place] [address] [place] Hemoglobin Ql (U) 3+ Abnormal Negative, Trace [facility] Comment on above: Order Comment: Speci men Type: URINE SPECIMEN Ordering Facility: [facility] Address: [address] [place] [id number] Performed By: #### L [id number] #### [facility] CLIA [id number] [address] [place] [address] [place] Ketones Ql (U) Negative Normal Trace, Negative [facility] Comment on above: Order Comment: Speci men Type: URINE SPECIMEN Ordering Facility: [facility] Address: [address] [place] [address] Performed By: #### L [id number] #### [facility] CLIA [id number] [address] [place] [address] [place] Leukocyte esterase Test strip Ql (U) Negative Normal Negative, 25 Elliott/uL [facility] Comment on above: Order Comment: Speci men Type: URINE SPECIMEN Ordering Facility: [facility] Address: [address] [place], [place] [address] Performed By: #### L [id number] #### [facility] CLIA [id number] [address] [place] [address] [place] Nitrite Ql (U) Negative Normal Negative [facility] Comment on above: Order Comment: Speci men Type: URINE SPECIMEN Ordering Facility: [facility] Address: [address] [place], [place] [address] Performed By: #### L [id number] #### [facility] CLIA [id number] [address] [place] [address] [place] pH (U) 6.0 [pH] Normal 5.0-8.0 [facility] Comment on above: Order Comment: Speci men Type: URINE SPECIMEN Ordering Facility: [facility] Address: [address] [place], [place] [address] Performed By: #### L [id number] #### [facility] CLIA [id number] [address] [place] [address] [place] Protein (U) [Mass/Vol] Trace Normal Trace , Negative [facility] Comment on above: Order Comment: Speci men Type: URINE SPECIMEN Ordering Facility: [facility] Address: [address] [place], [place] [address] Performed By: #### L [id number] #### [facility] CLIA [id number] [address] [place] [address] [place] RBC LM.HPF (Urine sed) [#/Area] /[HPF] Abnormal 0-3 /HPF [facility] Comment on above: Order Comment: Speci men Type: URINE SPECIMEN Ordering Facility: [facility] Address: [address] [place], [place] [address] Performed By: #### L [id number] #### [facility] CLIA [id number] [facility] [address] Specific gravity (U) [Rel density] 1.023 Normal 1.005-1.03 0 [facility] Comment on above: Order Comment: Speci men Type: URINE SPECIMEN Ordering Facility: [facility] Address: [address] [place] [address] Performed By: #### L [id number] #### [facility] CLIA [id number] [address] [place] [address] Urobilinogen Ql (U) Negative Normal Negative [facility] Comment on above: Order Comment: Speci men Type: URINE SPECIMEN Ordering Facility: [facility] Address: [address] [place] [address] Performed By: #### L [id number] #### [facility] CLIA [id number] [address] [place] [address] WBC LM.HPF (Urine sed) [#/Area] 0-5 /HPF Normal 0-5 /HPF [facility] Comment on above: Order Comment: Speci men Type: URINE SPECIMEN Ordering Facility: [facility] Address: [address] [place] [address] Performed By: #### L [id number] #### [facility] CLIA [id number] [address] [place] [address] OF [facility] CNOVon 05-25-2023 CNOV Office Visit ([place] ) -- BOBBI GARRISON ([id number]) 1970 M Date Time Provider Department 05/25/23 [...] on each side. Lumbar Stabilization Exercises With Irish Ball Abdominal muscles must remain contracted during [...] chest. Sl (more content not included)... Normal [facility] Leslye 09-14-2022 [facility] Telephone ([facility]) -- BOBBI GARRISON ([id number]) 1970 M Date Time Provider Department 09/14/22 DEJA VEE During your visit today, we recorded the following information about you: Cassi Cory Lin Pss 09/14/2022 2:39 PM Signed Patient would like a call back regarding his lab results Allergies As of Date: 09/14/2022 (No Known Allergies) Date Reviewed: 09/13/2022 Reviewed by: Stacey Cruz MA - Fully Assessed Reason for Visit: Patient Update [1234] Results [95] Patient Question [0787] Cmt: Spoke to patient reported improved hgba1c, [...] 2 capsules by mouth once daily. - eijvfpyl-pzm-KB-K-lycopene 400-20-370 mcg tab Take by mouth once daily. - vit P-zzcxprw-yjuw-rutin-hb196 584-81-62-40 mg tab Take by mouth once daily. Problem List As Of Date 09/14/2022 Noted Resolved Mixed hyperlipidemia [E78.2] 12/30/2016 Depression [F32.A] 05/11/2018 ISAK (obstructive sleep apnea) [G47.33] 03/24/2020 Encounter Status:Closed by DEJA VEE on 09/15/22 Normal [facility] Basic metabolic 2000 panelon 09-13-2022 Anion gap [Moles/Vol] 13 mmol/L Normal 9-18 [facility] Comment on above: Order Comment: Speci men Type: URINE SPECIMEN Ordering Facility: [facility] Address: [address] [place] [id number] Performed By: #### L [id number] #### [facility] CLIA [id number] [address] [place] [address] [place] Calcium [Mass/Vol] 10.4 mg/dL High 8.5-10.2 [facility] Comment on above: Order Comment: Speci men Type: URINE SPECIMEN Ordering Facility: [facility] Address: [address] [place] [address] Performed By: #### L [id number] #### [facility] CLIA [id number] [address] [place] [address] [place] Chloride [Moles/Vol] 101 mmol/L Normal 97-105 [facility] Comment on above: Order Comment: Speci men Type: URINE SPECIMEN Ordering Facility: [facility] Address: [address] Performed By: #### L [id number] #### [facility] CLIA [id number] [address] [place] [address] [place] CO2 [Moles/Vol] 25 mmol/L Normal 22-30 [facility] Comment on above: Order Comment: Speci men Type: URINE SPECIMEN Ordering Facility: [facility] Address: [address] [place] [address] Performed By: #### L [id number] #### [facility] CLIA [id number] [address] [place] [address] [place] Creatinine [Mass/Vol] 1.13 mg/dL Normal 0.73-1.22 [facility] Comment on above: Order Comment: Speci men Type: URINE SPECIMEN Ordering Facility: [facility] Address: [address] [place] [address] Performed By: #### L [id number] #### [facility] CLIA [id number] [address] [place] [address] [place] ESTIMATED GLOMERULAR FILTRATION RATE 79 mL/min/1.73m??? Normal >=60 [facility] Comment on above: Order Comment: Suleiman stanley Type: URINE SPECIMEN Ordering Facility: [facility] Address: [address] [place] [address] Result Comment: [place] mated Glomerular Filtration Rate [...] reflect actual GFR. Performed By: #### L [id number] #### [facility] CLIA [id number] [address] [place] [address] [place] Glucose [Mass/Vol] 100 mg/dL High 74-99 [facility] Comment on above: Order Comment: Suleiman stanley Type: URINE SPECIMEN Ordering Facility: [facility] Address: [address] [place], [place] [id number] Result Comment: The [place] Diabetes Association (ADA) provides guidance for cutoff [...] Standards of Medical Care in Diabetes 2016, [place] Diabetes Association. Diabetes Care. 2016.39(Suppl 1). Performed By: #### L [id number] #### [facility] CLIA [id number] [address] [place] [address] [place] Potassium [Moles/Vol] 3.9 mmol/L Normal 3.7-5.1 [facility] Comment on above: Order Comment: Speci men Type: URINE SPECIMEN Ordering Facility: [facility] Address: [address] [place] [address] Performed By: #### L [id number] #### [facility] CLIA [id number] [address] [place] [address] [place] Sodium [Moles/Vol] 139 mmol/L Normal 136-144 [facility] Comment on above: Order Comment: Speci men Type: URINE SPECIMEN Ordering Facility: [facility] Address: [address] [place] [address] Performed By: #### L [id number] #### [facility] CLIA [id number] [address] [place] [address] [place] Urea nitrogen [Mass/Vol] 18 mg/dL Normal 9-24 [facility] Comment on above: Order Comment: Speci men Type: URINE SPECIMEN Ordering Facility: [facility] Address: [address] [place] [address] Performed By: #### L [id number] #### [facility] CLIA [id number] [address] [place] [address] [place] Anion gap [Moles/Vol] 13 mmol/L 9 - 18 mmol/L [facility] Calcium [Mass/Vol] 10.4 mg/dL High 8.5 - 10. 2 mg/dL [facility] Chloride [Moles/Vol] 101 mmol/L 97 - 10 5 mmol/L [facility] CO2 [Moles/Vol] 25 mmol/L 22 - 30 mmol/L [facility] Creatinine [Mass/Vol] 1.13 mg/dL 0.73 - 1.22 mg/dL [facility] Estimated Glomerular Filtration Rate 79 mL/min/1.73m >=60 mL/min/1.7 3m [facility] Glucose [Mass/Vol] 100 mg/dL High 74 - 99 mg/dL [facility] Potassium [Moles/Vol] 3.9 mmol/L 3.7 - 5.1 mmol/L [facility] Sodium [Moles/Vol] 139 mmol/L 136 - 144 mmol/L [facility] Urea nitrogen [Mass/Vol] 18 mg/dL 9 - 24 mg/dL [facility] CNOVon 09-13-2022 CNOV Office Visit (LATONIA ) -- BOBBI GARRISON ([id number]) 1970 M Date Time Provider Department 09/13/22 [...] cheese, low-fat, cheddar or krishna 1 small (2-02/02 garry) - oranges, raw, all commercial variety 1 cup, chopped - broccoli, cooked, boiled, drained, without salt 1 potato small ( to ... - potato, baked, flesh AND skin, [...] rolls, whole grain, hamburger or hotdog -- TUESDAY 12 carb choices Breakfast 3 carb [...] large - bread, raisin, toasted, enriched -- De 3 carb choices 1/ breast, bone and skin removed - chicken, broilers or fryers, breast, meat only, cooked, roas 3 stick (-04/04 x 04/04 ) - bread sticks, plain, [...] with sugar substitute 1 small (6 to 6-78 long) - bananas, raw -- Snack 2 carb choices 1 oz - cheese, mozzarella, partial skim milk 1 pear, large (approx 2 per (more content not included)... Normal [facility] Leslye 09-13-2022 ELDER Telephone ([facility]) -- AMIBOBBI ([id number]) 1970 M Date Time Provider Department 09/13/22 DEJA VEE During your visit today, we recorded the following information about you: Shannan Talley 09/13/2022 4:22 PM Signed Pt requesting a call back with lab results - specifically sugar. [phone] Shannan Talley September 13, 2022 4:21 PM Ilda Soni [...] 2 capsules by mouth once daily. - itxrpnvb-fdr-UJ-K-lycopene 400-20-370 mcg tab Take by mouth once daily. - vit D-nbwxelq-jvpm-rutin-hb196 930-19-65-40 mg tab Take by mouth once daily. Problem List As Of Date 09/13/2022 Noted Resolved Mixed hyperlipidemia [E78.2] 12/30/2016 Depression [F32.A] 05/11/2018 ISAK (obstructive sleep apnea) [G47.33] 03/24/2020 Encounter Status:Closed by SHANNAN TALLEY on 01/14/23 Normal [facility] HbA1c (Bld)on 09-13-2022 Average glucose Estimated from glycated hemoglobin (Bld) [Mass/Vol] 143 mg/dL Normal [facility] Comment on above: Order Comment: Speci men Type: URINE SPECIMEN Ordering Facility: [facility] Address: [address] [place] [address] Result Comment: eAG: (Estimated average glucose) is a calculated value from HgbA1c and is textile designs sales representative of the average blood glucose level in the last 2-3 month period. Performed By: #### L [id number] #### [facility] CLIA [id number] [address] [place] [address] STATES OF [facility] HbA1c (Bld) [Mass fraction] 6.6 % High 4.3-5.6 [facility] Comment on above: Order Comment: Speci men Type: URINE SPECIMEN Ordering Facility: [facility] Address: [address] [place] [address] Result Comment: [place] Diabetes Association guidelines indicate that patients with HgbA1c in the range 5.7-6.4% are at increased risk for development of diabetes, and intervention by lifestyle modification may be beneficial. HgbA1c greater or equal to 6.5% is considered diagnostic of diabetes. Performed By: #### L [id number] #### [facility] CLIA [id number] [address] [place] [address] STATES OF [facility] Average glucose Estimated from glycated hemoglobin (Bld) [Mass/Vol] 143 mg/dL [facility] HbA1c (Bld) [Mass fraction] 6.6 % High 4.3 - 5.6 % [facility] HEMOGLOBIN A1C (POC)on 07-07 HbA1c (Bld) [Mass fraction] 6.6 % Abnormal 4.2 - 5.6 % [facility] Comprehensive metabolic 2000 panelon 06-14-2022 Albumin [Mass/Vol] 5.2 g/dL High 3.9 - 4.9 g/dL [facility] ALP [Catalytic activity/Vol] 37 U/L Low 38 - 113 U/L [facility] ALT [Catalytic activity/Vol] 47 U/L 10 - 54 U/L [facility] Anion gap [Moles/Vol] 14 mmol/L 9 - 18 mmol/L [facility] AST [Catalytic activity/Vol] 31 U/L 14 - 40 U/L [facility] Bilirubin [Mass/Vol] 0.5 mg/dL 0.2 - 1 .3 mg/dL [facility] Calcium [Mass/Vol] 10.1 mg/dL 8.5 - 10. 2 mg/dL [facility] Chloride [Moles/Vol] 102 mmol/L 97 - 10 5 mmol/L [facility] CO2 [Moles/Vol] 25 mmol/L 22 - 30 mmol/L [facility] Creatinine [Mass/Vol] 1.49 mg/dL High 0.73 - 1.22 mg/dL [facility] Estimated Glomerular Filtration Rate 56 mL/min/1.73m Low >=60 mL/min/1.7 3m [facility] Glucose [Mass/Vol] 100 mg/dL High 74 - 99 mg/dL [facility] Potassium [Moles/Vol] 4.0 mmol/L 3.7 - 5.1 mmol/L [facility] Protein [Mass/Vol] 7.9 g/dL 6.3 - 8.0 g/dL [facility] Sodium [Moles/Vol] 141 mmol/L 136 - 144 mmol/L [facility] Urea nitrogen [Mass/Vol] 18 mg/dL 9 - 24 mg/dL [facility] HbA1c (Bld)on 06-14-2022 Average glucose Estimated from glycated hemoglobin (Bld) [Mass/Vol] 157 mg/dL [facility] HbA1c (Bld) [Mass fraction] 7.1 % High 4.3 - 5.6 % [facility] XR IVPon 05-14-2022 XR IVP EXAMINATION: XR IVP HISTORY: Kidney stone ; right flank and lower quadrant pain COMPARISON: No relevant comparison available. TECHNIQUE: After obtaining patient consent a supervisor of operations image was obtained followed by injection of [...] EMMA GONSALVES Date: 2022-05-14 10:45 Normal [facility] Vital Signs Date Time Vital Sign Value Performing Clinician Facility 08-22-2023 15:13-0400 Blood Pressure Location Negro SCANLON [facility] 08-22-2023 15:13-0400 Diastolic blood pressure 73 mm[Hg] Negro SCANLON [facility] 08-22-2023 15:13-0400 Heart rate 68 /min Negro [facility]AN[facility] 08-22-2023 15:13-0400 Respiratory rate 16 /min Negro SCANLON [facility] 08-22-2023 15:13-0400 Systolic blood pressure 140 mm[Hg] Negro SCANLON [facility] 06-15-2023 15:27-0400 Diastolic blood pressure 82 mm[Hg] Frieda Henfling PA-C Work Phone: [facility] 06-15-2023 15:27-0400 Systolic blood pressure 132 mm[Hg] Frieda Henfling PA-C Work Phone: [facility] 06-15-2023 14:50-0400 Body height 190.5 cm Frieda Henfling PA-C Work Phone: [facility] 06-15-2023 14:50-0400 Body weight 112.95 kg Frieda Henfling PA-C Work Phone: [facility] 06-15-2023 14:50-0400 Heart rate 84 /min Frieda Henfling PA-C Work Phone: [facility] 06-15-2023 14:50-0400 SaO2% (BldA) [Mass fraction] 98 % Frieda Henfling PA-C Work Phone: [facility] 05-25-2023 15:29-0400 Diastolic blood pressure 77 mm[Hg] Frieda Henfling PA-C Work Phone: [facility] 05-25-2023 15:29-0400 Systolic blood pressure 136 mm[Hg] Frieda Henfling PA-C Work Phone: [facility] 05-25-2023 15:17-0400 Body height 190.5 cm Frieda Henfling PA-C Work Phone: [facility] 05-25-2023 15:17-0400 Body weight 113.85 kg Frieda Henfling PA-C Work Phone: [facility] 05-25-2023 15:17-0400 Heart rate 93 /min Frieda Henfling PA-C Work Phone: [facility] 05-25-2023 15:17-0400 SaO2% (BldA) [Mass fraction] 97 % Frieda Henfling PA-C Work Phone: [facility] 05-17-2023 09:10-0400 Body height 187.32 cm Mckinley John Other [facility] Other 05-17-2023 09:10-0400 Body mass index (BMI) [Ratio] 31.33 kg/m2 Mckinley John Other [facility] 05-17-2023 09:10-0400 Body weight 109.95 kg Mckinley John Other [facility] Other 05-17-2023 09:10-0400 Diastolic blood pressure 86 mm[Hg] Mckinley John Other [facility] Other 05-17-2023 09:10-0400 Respiratory rate 18 /min Mckinley John Other [facility] Other 05-17-2023 09:10-0400 SaO2% (BldA) [Mass fraction] 97 % Mckinley John Other [facility] Other 05-17-2023 09:10-0400 Systolic blood pressure 136 mm[Hg] Mckinley John Other [facility] Other 09-13-2022 14:15-0400 Body height 190.5 cm Deja Vee PA-C Work Phone: [facility] 09-13-2022 14:15-0400 Body weight 114.76 kg Deja Vee PA-C Work Phone: [facility] 09-13-2022 14:15-0400 Diastolic blood pressure 77 mm[Hg] Deja Vee PA-C Work Phone: [facility] 09-13-2022 14:15-0400 Heart rate 97 /min Deja Vee PA-C Work Phone: [facility] 09-13-2022 14:15-0400 SaO2% (BldA) [Mass fraction] 97 % Deja Vee PA-C Work Phone: [facility] 09-13-2022 14:15-0400 Systolic blood pressure 135 mm[Hg] Deja Vee PA-C Work Phone: [facility] 07-07-2022 15:35-0400 Body height 190.5 cm Frieda Schreibering PA-C Work Phone: [facility] 07-07-2022 15:35-0400 Body weight 115.21 kg Frieda Henfling PA-C Work Phone: [facility] 07-07-2022 15:35-0400 Diastolic blood pressure 72 mm[Hg] Frieda Henfling PA-C Work Phone: [facility] 07-07-2022 15:35-0400 Heart rate 79 /min Frieda Henfling PA-C Work Phone: [facility] 07-07-2022 15:35-0400 SaO2% (BldA) [Mass fraction] 97 % Frieda Henfling PA-C Work Phone: [facility] 07-07-2022 15:35-0400 Systolic blood pressure 119 mm[Hg] Frieda Henfling PA-C Work Phone: [facility] 06-14-2022 14:46-0400 Body weight 114.13 kg Frieda Henfling PA-C Work Phone: [facility] 06-14-2022 14:46-0400 Diastolic blood pressure 84 mm[Hg] Frieda Henfling PA-C Work Phone: [facility] 06-14-2022 14:46-0400 Heart rate 83 /min Frieda Henfling PA-C Work Phone: [facility] 06-14-2022 14:46-0400 Systolic blood pressure 131 mm[Hg] Frieda Henfling PA-C Work Phone: [facility] Encounters Encounter Date Encounter Type Care Provider Facility Start: 12-15-2023 ambulatory [facility]:CD:[id number] Start: 11-03-2023 End: 11-04-2023 ambulatory Negro SCANLON Facility:CD:[id number] Start: 10-25-2023 End: 10-25-2023 ambulatory Sanjuana Allison Facility:[facility] Start: 10-25-2023 End: 10-25-2023 ambulatory PA-C Frieda N Henfling Work Phone: [facility] Work Phone: Start: 10-25-2023 End: 10-25-2023 Patient encounter procedure PA-C Frieda Henfling Work Phone: [facility] Start: 10-10-2023 ambulatory Negroroxana SCANLON Facili ty:CD:[id number] Start: 09-20-2023 End: 09-21-2023 ambulatory Negro SCANLON Facility:CD:[id number] Start: 09-05-2023 End: 09-05-2023 ambulatory Negroroxana Scanlon Facility:[facility] Start: 09-05-2023 End: 09-05-2023 ambulatory PA-C Frieda N Henfling Work Phone: [facility] Work Phone: Start: 09-05-2023 End: 09-05-2023 Patient encounter procedure PA-C Frieda Henfling Work Phone: [facility] [place] Work Phone: Start: 08-30-2023 Telephone encounter Frieda miller PA-C Work Phone: Internal Medicine [facility] Comment on above: Results (Urine cytol ogy report) Start: 08-22-2023 End: 08-23-2023 ambulatory Negro Ciera SCANLON Facility:[facility] Start: 08-22-2023 End: 08-23-2023 ambulatory Negro Ciera SCANLON Facility:[facility] Start: 08-22-2023 End: 08-22-2023 Lab Drop off Negro Ciera SCANLON [facility] Start: 08-22-2023 End: 08-22-2023 Patient encounter procedure Negro Ciera SCANLON [facility] Start: 06-16-2023 Telephone encounter Frieda miller PA-C Work Phone: Internal [facility] Comment on above: Results Start: 06-15-2023 Encounter for nick zhong adult medical examination without abnormal findings DEJA VEE [facility] Start: 06-15-2023 End: 06-15-2023 ambulatory FRIEDA Pavithra FORREST Facility:[facility] Start: 06-15-2023 End: 06-15-2023 Patient encounter procedure Frieda N Justicewillis PA-C Work Phone: [facility] Comment on above: Well adult exam (Joann doyle Dx); Need for vaccination; Type 2 diabetes mellitus without complication, without long-term current use of insulin (HCC) Start: 06-15-2023 End: 06-15-2023 Patient encounter status Friedapavithra Forrest PA-C Work Phone: [facility] Work Phone: Start: 05-25-2023 End: 05-25-2023 ambulatory FRIEDA Langston JUSTICEWILLIS Facility:[facility] Start: 05-25-2023 End: 05-25-2023 Patient encounter procedure Frieda Pavithra Rendonwillis PA-C Work Phone: [facility] Comment on above: Lumbar back pain (Pr imary Dx); Type 2 diabetes mellitus without complication, without long-term current use of insulin (HCC); Well adult exam; Hyperlipidemia, unspecified hyperlipidemia type; Weak urinary stream Start: 05-25-2023 End: 05-25-2023 Patient encounter status Frieda N Justicewillis PA-C Work Phone: [facility] Start: 05-20-2023 End: 05-20-2023 ambulatory Mckinley John Other [facility] Other Start: 05-20-2023 Telephone encounter [facility] Start: 05-17-2023 End: 05-17-2023 ambulatory Mckinley John Other [facility] Other Start: 05-17-2023 Office outpatient [facility] sit [facility] [address] Start: 01-03-2023 Refill Frieda Partida ng PA-C Work Phone: [facility] Comment on above: Refill Request Start: 12-08-2022 ambulatory Negro Vang ELVA Brenner ty:GRACE Donell Start: 09-13-2022 End: 09-13-2022 ambulatory DEJA VEE Facility:[facility] Start: 09-13-2022 End: 09-13-2022 Patient encounter procedure Deja Vee PA-C Work Phone: [facility] Comment on above: Adult onset diabetes mellitus (HCC) (Primary Dx) Start: 07-07-2022 End: 07-07-2022 Patient encounter procedure Frieda Schreibering PA-C Work Phone: [facility] Comment on above: Kidney stone (Primar y Dx); Type 2 diabetes mellitus without complication, without long-term current use of insulin (HCC) Start: 06-23-2022 Telephone encounter Frieda Rowland nfling PA-C Work Phone: [facility] Comment on above: Results Start: 06-21-2022 Telephone encounter Frieda Rowland nfling PA-C Work Phone: [facility] Comment on above: Medication Problem Start: 06-18-2022 Refill Frieda Schreiberi ng PA-C Work Phone: [facility] Comment on above: Refill Request Start: 06-17-2022 Refill Frieda Schreiberi ng PA-C Work Phone: [facility] Comment on above: Refill Request Start: 06-14-2022 End: 06-14-2022 Patient encounter procedure Frieda Schreibering PA-C Work Phone: [facility] Comment on above: Well adult exam (Joann doyle Dx); Kidney stone; Impaired fasting glucose; Weak urinary stream Start: 06-14-2022 End: 06-14-2022 Patient encounter status Frieda Schreiberlucy PA-C Work Phone: Internal [facility] Start: 06-14-2022 Telephone encounter Frieda Rowland angela PA-C Work Phone: [facility] Comment on above: Results Start: 05-14-2022 End: 05-15-[address] [facility] Facility: Start: 03-20-2022 Refill Frieda Partida chari PA-C Work Phone: Internal [facility] Comment on above: Refill Request Procedures [...] Detail Author Start: 09-12-2027 Urine microalbumin profile [facility] Start: 09-24-2025 LIPID SCREEN LIPID SCREEN [facility] Start: 07-07-2025 DIABETES SCREEN DIABETES SCREEN [facility] Start: 06-14-2025 DIABETES SCREEN DIABETES SCREEN [facility] Start: 08-30-2024 COLOGUARD (FIT-DNA) COLOGUARD (FIT-D NA) [facility] Start: 08-30-2024 COLORECTAL CANCER SCREENING COLORECTAL CANCER SCREENING [facility] Start: 08-06-2024 DIABETES SCREEN DIABETES SCREEN [facility] Start: 06-15-2024 3 comp foot exam completed DIABETIC FOOT EXAM [facility] Start: 06-15-2024 ANNUAL PCP TEAM CASING TRIMMER KERRY DISEASE VISIT ANNUAL PCP TEAM CHRONIC DISEASE VISIT [facility] Start: 06-15-2024 COVID-19 VACCINE (4 - Moderna series) COVID-19 VACCINE (4 - Moderna series) [facility] Comment on above: Postponed from 01/02 (Declined at this time) Start: 06-15-2024 Hepatitis B screening URINE AL BUMIN:CREATININE RATIO [facility] Start: 06-15-2024 Hepatitis B surface antibody level LDL CHOLESTEROL [facility] Start: 06-15-2024 PNEUMOCOCCAL (1 - PCV) PNEUMOCOCCAL (1 - PCV) [facility] Comment on above: Postponed from 04/18 (Declined at this time) Start: 06-15-2024 Pneumococcal vaccination Pneumococcal Vaccine (1 - PCV) [facility] Comment on above: Postponed from 04/18 (Declined at this time) Start: 05-25-2024 ANNUAL PCP TEAM CASING TRIMMER KERRY DISEASE VISIT ANNUAL PCP TEAM CHRONIC DISEASE VISIT [facility] Start: 05-04-2024 Hepatitis B surface antibody level LDL CHOLESTEROL [facility] Start: 01-27-2024 Hepatitis C antibody , confirmatory test DILATED RETINAL EXAM [facility] Start: 12-16-2023 End: 02-15-2024 Comprehensive metabolic 2000 panel - Serum or Plasma COMP METABOLIC PANEL Lab Routine Type 2 diabetes mellitus without complication, without long-term current use of insulin (HCC) Expected: 12/16/2023 (Approximate), Expires: 02/15/2024 [facility] Work Phone: Comment on above: Expected: 12/16/2023 (Approximate), Expires: 02/15/2024 Start: 12-16-2023 End: 02-15-2024 Hemoglobin A1c in Blood HGB A1C Lab Routine Type 2 diabetes mellitus without complication, without long-term current use of insulin (HCC) Expected: 12/16/2023 (Approximate), Expires: 02/15/2024 [facility] Work Phone: Comment on above: Expected: 12/16/2023 (Approximate), Expires: 02/15/2024 Start: 12-16-2023 Hemoglobin A1c/Hemoglobin.total in Blood HBA1C [facility] Start: 09-13-2023 ANNUAL PCP TEAM CASING TRIMMER KERRY DISEASE VISIT ANNUAL PCP TEAM CHRONIC DISEASE VISIT [facility] Start: 08-10-2023 SHINGRIX VACCINE (2 of 2) SHINGRIX VACCINE (2 of 2) [facility] Start: 07-29-2023 Influenza vaccination C [facility] Start: 05-25-2023 End: 07-25-2023 ALBUMIN/CREAT RATIO RND UR ALBUMIN/CREAT RATIO RND UR Lab Routine Type 2 diabetes mellitus without complication, without long-term current use of insulin (HCC) Expected: 05/25/2023 (Approximate), Expires: 07/25/2023 [facility] Work Phone: Comment on above: Expected: 05/25/2023 (Approximate), Expires: 07/25/2023 Start: 05-25-2023 End: 07-25-2023 CBC W Auto Differential panel - Blood CBC + DIFF Lab Routine Well adult exam Expected: 05/25/2023 (Approximate), Expires: 07/25/2023 [facility] Work Phone: Comment on above: Expected: 05/25/2023 (Approximate), Expires: 07/25/2023 Start: 05-25-2023 End: 07-25-2023 Comprehensive metabolic 2000 panel - Serum or Plasma COMP METABOLIC PANEL Lab Routine Well adult exam Expected: 05/25/2023 (Approximate), Expires: 07/25/2023 [facility] Work Phone: Comment on above: Expected: 05/25/2023 (Approximate), Expires: 07/25/2023 Start: 05-25-2023 End: 07-25-2023 Hemoglobin A1c in Blood HGB A1C Lab Routine Type 2 diabetes mellitus without complication, without long-term current use of insulin (HCC) Expected: 05/25/2023 (Approximate), Expires: 07/25/2023 [facility] Work Phone: Comment on above: Expected: 05/25/2023 (Approximate), Expires: 07/25/2023 Start: 05-25-2023 End: 07-25-2023 Lipid 1996 panel - Serum or Plasma LIPID PANEL BASIC Lab Routine Hyperlipidemia, unspecified hyperlipidemia type Expected: 05/25/2023 (Approximate), Expires: 07/25/2023 [facility] Work Phone: Comment on above: Expected: 05/25/2023 (Approximate), Expires: 07/25/2023 Start: 05-25-2023 End: 07-25-2023 Prostate specific Ag [Mass/volume] in Serum or Plasma PSA/PROSTSPECAG DIAG Lab Routine Weak urinary stream Expected: 05/25/2023 (Approximate), Expires: 07/25/2023 [facility] Work Phone: Comment on above: Expected: 05/25/2023 (Approximate), Expires: 07/25/2023 Start: 05-25-2023 End: 07-25-2023 Thyrotropin [Units/volume] in Serum or Plasma TSH BLD Lab Routine Well adult exam Expected: 05/25/2023 (Approximate), Expires: 07/25/2023 [facility] Work Phone: Comment on above: Expected: 05/25/2023 (Approximate), Expires: 07/25/2023 Start: 05-25-2023 End: 07-25-2023 URINALYSIS, REFLEX MICROSCOPIC URINALYSIS, REFLEX MICROSCOPIC Lab Routine Well adult exam Expected: 05/25/2023 (Approximate), Expires: 07/25/2023 [facility] Work Phone: Comment on above: Expected: 05/25/2023 (Approximate), Expires: 07/25/2023 Start: 03-14-2023 Hemoglobin A1c/Hemoglobin.total in Blood HBA1C [facility] Start: 09-14-2022 End: 11-14-2022 Comprehensive metabolic 2000 panel - Serum or Plasma COMP METABOLIC PANEL Lab Routine Type 2 diabetes mellitus without complication, without long-term current use of insulin (HCC) Expected: 09/14/2022 (Approximate), Expires: 11/14/2022 [facility] Work Phone: Comment on above: Expected: 09/14/2022 (Approximate), Expires: 11/14/2022 Start: 09-14-2022 End: 11-14-2022 Hemoglobin A1c in Blood HGB A1C Lab Routine Type 2 diabetes mellitus without complication, without long-term current use of insulin (HCC) Expected: 09/14/2022 (Approximate), Expires: 11/14/2022 [facility] Work Phone: Comment on above: Expected: 09/14/2022 (Approximate), Expires: 11/14/2022 Start: 07-29-2022 Influenza vaccination INFLUENZA (#1) [facility] Start: 06-14-2022 End: 08-14-2022 Prostate specific Ag [Mass/volume] in Serum or Plasma [facility] Work Phone: Comment on above: Expected: 06/14/2022 , Expires: 08/14/2022 Start: 03-08-2022 COVID-19 VACCINE (4 - Booster for Moderna series) COVID-19 VACCINE (4 - Booster for Moderna series) [facility] Start: 01-02-2022 COVID-19 VACCINE (4 - Booster for Moderna series) COVID-19 VACCINE (4 - Booster for Moderna series) [facility] Start: 09-24-2021 Hepatitis B surface antibody level LDL CHOLESTEROL [facility] Start: 2021 SHINGRIX VACCINE (1 of 2) SHINGRIX VACCINE (1 of 2) [facility] Start: 07-03-2020 Hepatitis B screening URINE AL BUMIN:CREATININE RATIO [facility] Start: 2016 Colonoscopy COLONOSCOPY [facility] Start: [address] [facility] Start: 2016 FECAL OCCULT BLOOD FECAL OCCULT BLOO D [facility] Start: 2016 [facility] Start: 1981 3 comp foot exam completed DIABETIC FOOT EXAM [facility] Start: 1981 Hepatitis C antibody , confirmatory test DILATED RETINAL EXAM [facility] Start: 1977 PNEUMOCOCCAL (1 - PCV) PNEUMOCOCCAL (1 - PCV) [facility] Start: 1976 COVID-19 VACCINE (1) COVID-19 VACCIN E (1) [facility] Start: 1971 HEPATITIS B (1 of 3 - 3-dose series) HEPATITIS B (1 of 3 - 3-dose series) [facility] CALCIUM 24 HR URINE CALCIUM 24 H R URINE Lab Routine Impaired fasting glucose Ordered: 06/14/2022 [facility] Work Phone: Comment on above: Ordered: 06/14/2022 Citrate [Mass/time] in 24 hour Urine CITRATE 24 HR URINE Lab Routine Impaired fasting glucose Ordered: 06/14/2022 [facility] Work Phone: Comment on above: Ordered: 06/14/2022 CREATININE 24 HR UR CREATININE 2 4 HR UR Lab Routine Impaired fasting glucose Ordered: 06/14/2022 [facility] Work Phone: Comment on above: Ordered: 06/14/2022 End: 07-15-2024 Ct abdomen & pelvis w/o contrst 1/> body re CT UROGRAM WO/W IVCON Radiology Routine Hematuria, unspecified type 1 Occurrences starting 06/16/2023 until 07/15/2024 [facility] Work Phone: Comment on above: 1 Occurrences starti ng 06/16/2023 until 07/15/2024 HB A1C B/O HB A1C B/O Lab R outine Type 2 diabetes mellitus without complication, without long-term current use of insulin ([facility]) Ordered: 07/07/2022 [facility] Work Phone: Comment on above: Ordered: 07/07/2022 Oxalate [Mass/time] in 24 hour Urine OXALATE 24 HR URINE Lab Routine Impaired fasting glucose Ordered: 06/14/2022 [facility] Work Phone: Comment on above: Ordered: 06/14/2022 Sodium [Moles/time] in 24 hour Urine SODIUM 24 HR URINE Lab Routine Impaired fasting glucose Ordered: 06/14/2022 [facility] Work Phone: Comment on above: Ordered: 06/14/2022 STONE PANEL URINE STONE PANEL UR INE Lab Routine Impaired fasting glucose Ordered: 06/14/2022 [facility] Work Phone: Comment on above: Ordered: 06/14/2022 Urate [Mass/time] in 24 hour Urine URIC ACID 24 HR UR Lab Routine Impaired fasting glucose Ordered: 06/14/2022 [facility] Work Phone: Comment on above: Ordered: 06/14/2022 [facility] Immunizations Immunization Date Immunization Notes Care Provider Clyde hurd 06-15-2023 zoster vaccine recombinant Frieda Henfling PA-C Work Phone: [facility] 08-21-2022 influenza, injectabl e, quadrivalent, preservative free Frieda Henfling PA-C Work Phone: [facility] 08-21-2022 influenza virus vacc ine, unspecified formulation Frieda Henfling PA-C Work Phone: [facility] 08-06-2021 influenza, injectabl e, quadrivalent, contains preservative Frieda Henfling PA-C Work Phone: [facility] 09-24-2020 influenza, injectabl e, quadrivalent, contains preservative Frieda Henfling PA-C Work Phone: [facility] 09-13-2018 influenza, injectabl e, quadrivalent, preservative free Frieda Henfling PA-C Work Phone: [facility] 09-12-2017 tetanus toxoid, redu alessandro diphtheria toxoid, and acellular pertussis vaccine, adsorbed Frieda Henfling PA-C Work Phone: [facility] 08-23-2017 influenza, injectabl e, quadrivalent, contains preservative Frieda Henfling PA-C Work Phone: [facility] 09-28-2016 influenza, injectabl e, quadrivalent, contains preservative Frieda Henfling PA-C Work Phone: [facility] 09-28-2016 influenza, seasonal, injectable Frieda Henfling PA-C Work Phone: [facility] 05-25-2016 tetanus and diphther ia toxoids, adsorbed, preservative free, for adult use (5 Lf of tetanus toxoid and 2 Lf of diphtheria toxoid) Frieda Candieing PA-C Work Phone: [facility] 08-18-2015 influenza, injectabl e, quadrivalent, contains preservative Frieda Schreibering PA-C Work Phone: [facility] 08-18-2015 influenza, seasonal, injectable Frieda Schreibering PA-C Work Phone: [facility] Payers Date Payer Category Payer Self-pay [id number] 2012 Unknown MMO MMO [employer] [id number] 2012-Present [phone] [address] [place] [address] PPO [id number] 2012 Unknown [id number] 1971 Unknown [id number] 1971 Unknown [id number] 1971 Unknown [id number] 1971 Unknown [id number] 1971 Unknown [id number] 1971 Unknown [id number] 1959 Unknown [id number] Unknown [id number] Unknown [id number] Social History Date Type Detail Facility Start: 08-18-2015 End: 07-07-2022 Tobacco smoking status NHIS Ex-smoker [facility] Start: 08-18-2015 End: 07-07-2022 Tobacco use and exposure User of smokeless tobacco [facility] History of tobacco use Snuff User [facility] Start: 09-24-2020 End: 06-15-2023 Alcohol intake Current drinker of alcohol (finding) [facility] Start: 1970 Sex Assigned At Not on file C [facility] Start: 06-04-2022 End: 09-13-2022 Exposure to SARS-CoV-2 (event) Not sure [facility] History of tobacco use Current smoker [facility] Start: 05-25-2023 End: 06-15-2023 Sex Assigned At [facility] Start: 05-25-2023 End: 06-15-2023 History of Social function [facility] Adult Depression Screening Assessment 0 [facility] Start: 05-08-2022 Tobacco smoking stat us NHIS Never smoked tobacco (finding) [facility] Start: 1970 Sex Assigned At Male F [facility] Functional Status Date Assessment Result Facility 08-22-2023 Functional Status N/A [facility] Clinical Notes 03-22-2022 to 11-01-2023 Telephone Encounter - Sherman Aggarwal MA - 08/30/2023 9:31 AM EDTTelephone Encounter - Sherman Aggarwal MA - 06/30/2023 2:01 PM EDTTelephone Encounter - Maru Varghese - 06/29/2023 11:43 AM EDT Note Date & Type Note Facility 11-01-2023 Note [id number] [facility] 08-30-2023 Miscellaneous Notes [facility] Placed in pcp inbox for review. Sherman Aggarwal MA August 30, 2023 9:32 AM documented in this encounter [facility] 08-22-2023 Note Chief Complaint Referral *Hematuria HPI [...] of kidney) CT AP wo con 05/08/22 FR - 8 mm and 6 mm calculi [...] Local anesthesia. Prophylactic abx sent to [facility]. 3. Screening PSA (prostate specific antigen) (Z12.5: Encounter for screening for malignant neoplasm of prostate) PSA: 06/15/23 - 1.08. 4. Renal cyst (N28.1: Cyst of kidney, acquired) CT AP wo con 05/08/22 [facility] - Small cysts R kidney. Follow-up With When Contact Information Negro SCANLON MD, URL [facility] [address], [place] [address]- [phone] Additional Instructions: schedule cysto, CTU Patient Education Dietary Guidelines to Help Prevent Kidney Stones I, jorge Eddy (more content not included)... [facility] Comment on above: Result Comment: Elec tronically Signed By: Negro SCANLON MD\.br\Date and Time Signed: 08/22/23 15:55 EDT\.br\Electronically Co-Signed By: Florence Kong\.br\Date and Time Co-Signed: 08/22/23 15:53 EDT 08-22-2023 Evaluation + Plan note Diagnostic Tests PendingUrine Cytology ([facility]) 08/22/23 [facility] 08-22-2023 Hospital Discharg e instructions Patient [...] include: ?8 oz (237 mL) of milk, tdvvkyn-ofevkmipzcwd-dnujz milk, and calcium-fortifiedfruit juice. Calcium-fortified means that [...] ?Spinach (cooked), rhubarb, beets, sweet potatoes, and Irish chard. ?Peanuts. ?Potato chips, burmese fries, and baked potatoes with skin on. ?Nuts and nut products. ?Chocolate. If you regularly take a diuretic medicine, make sure to eat at least 1 or 2 servings of fruits or vegetables that are high in potassium each day. These include: ?Avocado. ?Banana. ?Thorndike, prune, carrot, or tomato juice. ?Baked potato. [...] magnesium, fish oil, or vitamin B6. Take olby-vgm-fwsykih and prescription medicines only as told by [...] Casseroles. Pizza. Lasagna. Frozen meals. Potato chips. Mexican fries. The items listed above may not [...] provider. Document Revised: 07/26/2022 Document Reviewed: 07/26/2022 10Six Patient Education 2022 GROU.PS. Follow Up Care 06/22/2023 09:21:45 With:ELVA RODRÍGUEZ, Negro Vang, URL Address: [facility] [address], [place] [address] [phone] When: Unknown [facility] 06-30-2023 Miscellaneous Notes Faxed last OV and order with demographics to Dr. Sky's office. Patient informed. Sherman Aggarwal MA June 30, 2023 2:02 PM Patient is seeing urology outside of the clinic He is seeing urologist Dr Scanlon in [place] and they were told the office needs the consult and records Please advise - patient only had phone number of office [phone] Please contact the patient to schedule an [...] Frieda Forrest PA-C documented in this encounter [facility] 06-15-2023 Note HNO ID: [id number] Author: Frieda Forrest PA-C Service: ? Author Type: Physician [employer] Supervisor Type: Progress Notes Filed: 06/15/2023 4:28 PM [...] complication, without long-term current use of insulin ([facility]) Past Surgical History: PAST SURGICAL HISTORY Procedure [...] by mouth once daily., Disp: , Rfl: pfbbcodj-rvg-JT-K-lycopene 400-20-370 mcg tab, Take by mouth once daily., Disp: , Rfl: vit W-ttundtp-soaa-rutin-hb196 396-04-90-40 mg tab, Take by mouth once daily., [...] ZOSTER VACCINE, RECOMBINANT (SHINGRIX) Frieda Forrest PA-C [facility] 06-15-2023 History of Presen t illness [...] by mouth once daily., Disp: , Rfl: vcwufvgj-zvc-VD-K-lycopene 400-20-370 mcg tab, Take by mouth once daily., Disp: , Rfl: vit H-rzhegbh-xrme-rutin-hb196 388-44-61-40 mg tab, Take by mouth once daily., [...] ZOSTER VACCINE, RECOMBINANT (SHINGRIX) Frieda Forrest PA-C documented in this encounter [facility] 06-15-2023 Instructions Stacey Cruz MA - 06/15/2023 2:51 PM EDT [facility] LAB FACTS Please visit our lab at least 3-5 days before your scheduled appointment to have your lab work drawn, if lab work is ordered. This will allow us the ability to review your lab work results with you during your scheduled visit. [facility] LAB HOURS: Lab is open Tuesday - Tuesday from 6:30am to 5pm and open 8am -12pm on Saturdays. [facility]: Tuesday- 7:30am to 5:30pm. Fridays [...] medicine, or pediatrics at any of our [email or web address] locations and main campus. documented in this encounter [facility] 05-25-2023 Note HNO ID: [id number] Author: Frieda Forrest PA-C Service: ? Author Type: Physician [employer] Supervisor Type: Progress Notes Filed: 05/25/2023 4:20 PM Note Text: Subjective HPI Patient presents today for urgent appointment. He reports he started to have pain in low back and right leg last 05/16/2023. 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 He went to the urgent care last [...] by mouth once daily., Disp: , Rfl: yyudiive-lav-LR-K-lycopene 400-20-370 mcg tab, Take by mouth once daily., Disp: , Rfl: vit A-uaawhre-oxgp-rutin-hb196 663-90-93-40 mg tab, Take by mouth once daily., [...] heat, massage, stretching exercises. Frieda Forrest PA-C [facility] 05-25-2023 History of Presen t illness Narrative Subjective HPI Patient presents today for urgent appointment. He reports he started to have pain in low back and right leg last 05/16/2023. 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 He went to the urgent care last [...] complication, without long-term current use of insulin ([facility]) Past Surgical History: PAST SURGICAL HISTORY Procedure [...] by mouth once daily., Disp: , Rfl: agsqjazr-xnn-DJ-K-lycopene 400-20-370 mcg tab, Take by mouth once daily., Disp: , Rfl: vit U-qmkpwra-otdi-rutin-hb196 749-56-96-40 mg tab, Take by mouth once daily., [...] Frieda Forrest PA-C documented in this encounter [facility] 05-25-2023 Instructions Frieda Forrest PA-C - 05/25/2023 [...] on each side. Lumbar Stabilization Exercises With Irish Ball Abdominal muscles must remain contracted during [...] times each side. Lumbar Stabilization Exercise With Irish Ball Lie on stomach over ball. Walk [...] a cool towel. documented in this encounter [facility] 05-17-2023 Evaluation note Encounter Date Diagnosis Assessment [...] right hamstring, initial encounter (ICD-10 - S76.311A) [facility] Other 02-06-2023 Miscellaneous Notes* Telephone Encounter - [...] DAILY Danay Jenkins MA [facility]22 NoteHNO ID: [id number] Author: Deja Vee PA-C Service: ? Author Type: Physician [employer] Supervisor Type: Progress Notes Filed: 09/17/2022 3:45 PM Note Text: This note was created using Alphionriter. Subjective Bobbi Garrison is a 52 year old male. CC: Follow up for diet controlled DM. PAST MEDICAL HISTORY Diagnosis Date Depressive disorder, not elsewhere classified Mixed hyperlipidemia ISAK (obstructive sleep apnea) compliant Type 2 diabetes mellitus without complication, without long-term current use of insulin (HCC) PAST SURGICAL HISTORY Procedure Laterality Date AMP [...] - BASIC METABOLIC PNL MIRLANDE [facility]10-17-2022 History of Present illness Narrative* MIRLANDE De La Cruz-C - 09/13/2022 2:26 PM EDT This note was created using Alphionriter. Subjective Bobbi Garrison is a 52 year old male. CC: Follow up for diet controlled DM. PAST MEDICAL HISTORY Diagnosis Date Depressive disorder, not elsewhere classified Mixed hyperlipidemia ISAK (obstructive sleep apnea) compliant Type 2 diabetes mellitus without complication, without long-term current use of insulin ([facility]) PAST SURGICAL HISTORY Procedure Laterality Date AMP [...] PNL Deja Vee PA-C [facility] Instructions* Patient Instructions* Deja Vee PA-C - [...] Tuesday carb choices Breakfast 3 carb choices cup(6 [...] without salt 1 potato small (-12/01 to 2-11/29 ... - potato, baked, flesh & skin, [...] - rolls, whole grain, hamburger or hotdog Tuesday carb choices Breakfast 3 carb choices [...] serving (1.5 cups prepared) - fresh express florencio fresh salad kit Tuesday carb choices Breakfast [...] mild 1 cup - blueberries, raw 1 waffle, round (4 garry) (include ... - kyara's eggo lowfat blueberry nutri- grain waffles 3 tbsp - syrups, table blends, pancake, reduced-calorie Snack 1 carb choices 1 medium - egg, whole, raw, fresh 2/3 cup oyster crackers - crackers, saltines (includes oyster, soda, soup) NOTE: Boil or poach egg. Lunch 4 carb choices 1 oz - cheese, georgian 3 oz - brissa rich, turkey breast & white turkey (oven roasted) 1 cup, diced - melons, cantaloupe, raw 2 slice, regular - bread, pumpernickel 1 oz - pretzels, hard, whole-wheat 1 cup sugar-free jello Snack 2 carb choices 1 cup - milk, lowfat, fluid, 1% milkfat, with vitamin a 1/2 cup (1 nlea serving) - cereals goyui-bz-upg, ashley, post the origin shredded wheat Dinner 3 carb choices 2 tbsp - salad dressing, ashley light done right! yoruba dressing 1/2 cup - sauce, pasta, spaghetti/marinara, hgstl-fq-wdqcg 1 cup - spaghetti, cooked, enriched, without salt, whole grain or white wheat with fiber 3/4 cup - fast foods, salad, vegetable, tossed, without dressing Tuesday carb choices Breakfast 3 carb choices 1 cup - milk, nonfat, fluid, with vitamin a (fat free or skim) 1/4 cup - egg substitute, liquid 1 cup, balls - melons, honeydew, raw 1 medium slice, cooked - pork, cured, roberto, cooked, broiled, fernández-fried or roasted 1 tortilla (approx 6 garry) - tortillas, pqbax-gm-yrol or -mckeon, flour, whole wheat NOTE: Scramble egg substitute in non-stick skillet. Snack 1.5 carb choices 1 cup, quartered or chopped - apples, raw, with skin Lunch 3 carb choices 2 tbsp - low fat salad dressing 1med(7 to 7-7/8 long) - bananas, raw 1 slice, small (2 x 2-1/2 x 1-3/... - bread, burmese or kirk (includes sourdough) 1 1/2 cup - fast foods, salad, vegetable tossed, without dressing, with Snack 2 carb choices 1/2 oz - cheese, mozzarella, partial skim milk 1/2 cup - sauce, pasta, spaghetti/marinara, yrgsy-he-htamw 1 serving mohawk bryce, plain, whole grain Dinner 4 carb choices 1 cup - spinach, cooked, boiled, drained, without salt 1 slice, medium (4 x 2-1/2 x 1-3... - bread, burmese or kirk (includes sourdough) 1 serving - lasagna with meat & sauce, frozen entree Tuesday carb choices Breakfast 3 carb choices 1 cup - milk, lowfat, fluid, 1% milkfat, with vitamin a 1 cup - cereals gyhom-zq-swn, general ross, arelyos 1 cup, halves - strawberries, raw Snack 2 carb choices 1 cup - milk, lowfat, fluid, 1% milkfat, with vitamin a 2 cookie - cookies, fig bars Lunch 3 carb choices 1/2 cup - fruit salad, canned, water pack, solids & liquids 1 bettina, large (6-1/2 garry) - bread, bettina, whole-wheat 1 serving - [employer]'Adypeables bnihg-la-kkhif sandwich salad, chicken, Snack 1 carb choices [...] salt 2/3 cup - wild rice, cooked TUESDAY 12 carb choices Breakfast 3 carb choices 1/2 cup - grapefruit juice, frozen concentrate, unsweetened, diluted w 2 slices (6 per 6-oz pkg.) - pork, cured, guatemalan-style roberto, grilled 1 small - muffins, oat [...] roast, lean, 0 fat, all grades, cooked, [facility] LAB FACTS Please visit our lab at least 3-5 days before your scheduled appointment to have your lab work drawn, if lab work is ordered. This will allow us the ability to review your lab work results with you during your scheduled visit. [facility] HOURS: Lab is open Tuesday - Tuesday from 6:30am to 5pm and open 8am -12pm on Saturdays. [facility]: Tuesday- 7:30am to 5:30pm. Fridays [...] medicine, or pediatrics at any of our [email or web address] locations and main campus. [facility] History of Present illness Narrative* Frieda Forrest [...] complication, without long-term current use of insulin ([facility]) Past Surgical History: PAST SURGICAL HISTORY Procedure [...] by mouth once daily., Disp: , Rfl: pudceqcr-oib-RB-K-lycopene 400-20-370 mcg tab, Take by mouth once daily., Disp: , Rfl: vit Y-llvhfgf-grdd-rutin-hb196 398-67-71-40 mg tab, Take by mouth once daily., [...] complication, without long-term current use of insulin ([facility]) - ICD9: 250.00, ICD10: E11.9 We will complete A1c back office today to ensure things have been improving with dietary changes inthe last month. Does have appointment 08/2022 to recheck. B/o A1C improved to 6.6. - HB A1C B/O Frieda Forrest PA-C documented [facility] encounter[facility]22 Instructions* Patient Instructions* Danay Jenkins MA - 07/07/2022 3:36 PM EDT [facility] LAB FACTS Please visit our lab at least 3-5 days before your scheduled appointment to have your lab work drawn, if lab work is ordered. This will allow us the ability to review your lab work results with you during your scheduled visit. [facility] HOURS: Lab is open Tuesday - Tuesday from 6:30am to 5pm and open 8am -12pm on Saturdays. [facility]: Tuesday- 7:30am to 5:30pm. Fridays [...] medicine, or pediatrics at any of [email or web address] locations and main campus. documented [facility]07[facility]22 Miscellaneous Notes* Telephone Encounter - Danay Jenkins [...] discuss stone prevention. Referral placed, transfer to [facility] to schedule. Frieda Forrest PA-C documented in this encounterK[facility]07-27-2022 Miscellaneous Notes* Telephone Encounter - Frieda Forrest [...] EDT 10 day supply was sent to [facility]. Patient is requesting long term acute care registered nurse supply [facility]. * Telephone Encounter [...] Forrest PA-C * Telephone Encounter - Saira Maloney Pss - 06/18/2022 12:38 PM EDT Patient phones requesting refills as follows: Pending Prescriptions Disp Refills ATORVASTATIN 20 MG TABLET 10 tablet 0 Sig: Take 1 tablet by mouth once daily. LIV: No Please review and advise. Saira Maloney Pss documented in this encounterK[facility]07-25-2022 Miscellaneous Notes* Telephone Encounter - Danay Jenkins [...] Please review and advise documented in this encounterKet[facility]07-21-2022 Miscellaneous Notes* Telephone Encounter - Sandra Calderon APRN.ROSY - 06/17/2022 10:09 AM EDT The following approved medication requests have been transmitted electronically. Signed Prescriptions Disp Refills atorvastatin (LIPITOR) 20 mg tablet 10 tablet 0 Sig: Take 1 tablet by mouth once daily. LIV: No Authorizing Provider: SANDRA CALDERON APRN.ROSY * Telephone Encounter - Shannan Talley - 06/17/2022 9:54 AM EDT Patient spouse phones requesting a 10 day supply to [facility] while waiting on mail order toarrive: Pending Prescriptions Disp Refills ATORVASTATIN 20 MG TABLET 90 tablet 3 Sig: Take 1 tablet by mouth once daily. LIV: No Please review and advise. Shannan Talley documented in this encounterK[facility]07-20-2022 Miscellaneous Notes* Telephone Encounter - Radha Rodriguez [...] okay). Frieda Forrest PA-C documented in this encounterKet[facility]07-18-2022 History of Present illness Narrative* Frieda Forrest [...] by mouth once daily., Disp: , Rfl: vewiekld-jzz-MH-K-lycopene 400-20-370 mcg tab, Take by mouth once daily., Disp: , Rfl: vit Y-gyxjlnv-usnt-rutin-hb196 (BIOFLEX) 449-28-95-40 mg tab, Take by mouth once daily., [...] DIAG Frieda Forrest PA-C documented in this encounterK[facility]04-25-2022 Miscellaneous Notes* Telephone Encounter - Frieda Forrest [...] advise. Sherman Aggarwal MA documented in [facility] encounterC[facility]eraluation + Plan note No data available for this section [facility] evaluation note* Diagnosis Well adult exam- Primary Routine general medical examination at a health care facility Kidney stone Calculus of kidney Impaired fasting glucose Weak urinary stream Slowing of urinary stream documented in this encounter [facility] note* Diagnosis Type 2 diabetes mellitus without complication, without long-term current use of insulin ([facility])- Primary documented in this encounter [facility] note* Diagnosis Kidney stones- Primary Calculus of kidney documented in this encounter [facility] note* Diagnosis Kidney stone- Primary Calculus of kidney Type 2 diabetes mellitus without complication, without long-term current use of insulin (HCC) documented in this encounter [facility] note* Diagnosis Adult onset diabetes mellitus (HCC)- Primary documented in this encounter [facility] noteNo InformationNortPenn [facility] Other Evaluation note* Diagnosis Lumbar back pain- Primary Lumbago Type 2 diabetes mellitus without complication, without long-term current use of insulin (HCC) Well adult exam Routine general medical examination at a health care facility Hyperlipidemia, unspecified hyperlipidemia type Weak urinary stream Slowing of urinary stream documented in this encounter [facility] note* Diagnosis Well adult exam- Primary Routine general medical examination at a peoples hospital care facility Need for vaccination Need for prophylactic vaccination and inoculation against unspecified single disease Type 2 diabetes mellitus without complication, without long-term current use of insulin (HCC) documented in this encounter [facility] note* Diagnosis Hematuria, unspecified type- Primary documented in this encounter [facility] noteNo assessment information availableMer[facility] Work Phone: Hiseumv general Narrative - Reported* Type Description Date Medical History depression Medical History Cholesterol Medical History rt knee injury Medical History lt eye injury Surgical History knee surgery Surgical History eyeslt Surgical History oral surgery Hospitalization History see surgical hx [facility] Other Hospital Discharge instructions No data available for this section [facility] No data available for this section [facility] Summary Purpose Family History No Family History Records FoundNo Family History Records FoundNo Family History Records FoundNo Family History Records Found Advance Directives No Advanced Directives Records Found Advance Directive Response Recorded Date/ Time Advance Directives No December 4:11pm Reason for Referral Specialty Diagnoses / Procedures Referred By Cy tan Referred To Contact Urology Diagnoses Kidney stones Procedures CONSULT TO UROLOGY OFFICE/OUTPATIENT [facility] 60-74 MINUTES Frieda Forrest PA-C [address] [place] [address] Referral ID Status Reason Start Date Expiration Date Visits Requested Visits Authorized [id number] Authorized PCP Requested Referral 06/23/2022 06/23/2023 1 1 Specialty Diagnoses / Procedures Referred By Contac t Referred To Contact Urology Diagnoses Hematuria, unspecified type Procedures CONSULT TO UROLOGY OFFICE/OUTPATIENT NEW [facility]IGH [facility] 60-74 MINUTES Frieda Forrest PA-C [address] [place] [address] Referral ID Status Reason Start Date Expiration Date Visits Requested Visits Authorized [id number] Authorized PCP Requested Referral 06/16/2023 06/15/2024 1 1 Specialty Diagnoses / Procedures Referred By Contac t Referred To Contact CT IMAGING Diagnoses Hematuria, unspecified type Procedures CT UROGRAM WO/W IVCON CT ABD & PELVIS W/O CONTRST 1+ BODY REGNS Frieda Forrest PA-C [address] [place] [address] Ct Imaging Referral ID Status Reason Start Date Expiration Date Visits Requested Visits Authorized [id number] Pending Review Auto-Generat ed Referral 06/16/2023 07/15/2024 [...] or prosecute any alcohol or drug abuse patient.[facility]In the event this information is protected by the Federal Confidentiality of Alcohol and Drug Abuse Patient Records regulations: The Federal rules restrict any use of the information to criminally investigate or prosecute any alcohol or drug abuse patient.[facility] DaytonIn the event this information is protected by the Federal Confidentiality of Alcohol and Drug Abuse Patient Records regulations: The Federal rules restrict any use of the information to criminally investigate or prosecute any alcohol or drug abuse patient.[facility] DaytonIn the event this information is protected by the Federal Confidentiality of Alcohol and Drug Abuse Patient Records regulations: The Federal rules restrict any use of the information to criminally investigate or prosecute any alcohol or drug abuse patient.[facility] DaytonIn the event this information is protected by the Federal Confidentiality of Alcohol and Drug Abuse Patient Records regulations: The Federal rules restrict any use of the information to criminally investigate or prosecute any alcohol or drug abuse patient.[facility] DaytonIn the event this information is protected by the Federal Confidentiality of Alcohol and Drug Abuse Patient Records regulations: The Federal rules restrict any use of the information to criminally investigate or prosecute any alcohol or drug abuse patient.[facility] DaytonIn the event this information is protected by the Federal Confidentiality of Alcohol and Drug Abuse Patient Records regulations: The Federal rules restrict any use of the information to criminally investigate or prosecute any alcohol or drug abuse patient.[facility] DaytonIn the event this information is protected by the Federal Confidentiality of Alcohol and Drug Abuse Patient Records regulations: The Federal rules restrict any use of the information to criminally investigate or prosecute any alcohol or drug abuse patient.[facility] DaytonIn the event this information is protected by the Federal Confidentiality of Alcohol and Drug Abuse Patient Records regulations: The Federal rules restrict any use of the information to criminally investigate or prosecute any alcohol or drug abuse patient.[facility] DaytonIn the event this information is protected by the Federal Confidentiality of Alcohol and Drug Abuse Patient Records regulations: The Federal rules restrict any use of the information to criminally investigate or prosecute any alcohol or drug abuse patient.[facility] DaytonIn the event this information is protected by the Federal Confidentiality of Alcohol and Drug Abuse Patient Records regulations: The Federal rules restrict any use of the information to criminally investigate or prosecute any alcohol or drug abuse patient.[facility] DaytonIn the event this information is protected by the Federal Confidentiality of Alcohol and Drug Abuse Patient Records regulations: The Federal rules restrict any use of the information to criminally investigate or prosecute any alcohol or drug abuse patient.[facility] DaytonIn the event this information is protected by the Federal Confidentiality of Alcohol and Drug Abuse Patient Records regulations: The Federal rules restrict any use of the information to criminally investigate or prosecute any alcohol or drug abuse patient.[facility] DaytonIn the event this information is protected by the Federal Confidentiality of Alcohol and Drug Abuse Patient Records regulations: The Federal rules restrict any use of the information to criminally investigate or prosecute any alcohol or drug abuse patient.[facility] Reason for Visit (unrecogniz ed section and [...] Results Reason Comments Results Urine cytology repor t Care Teams (unrecognized sec tion and content) In Home Caregiver Relationship Specialty Start Date End Date Frieda Forrest PA-C [address] [place] [address] PCP - General Internal Medicine 07/05/19 In Home Caregiver Relationship Specialty Start Date End Date Frieda Forrest PA-C [address] [place] [address] PCP - General Internal Medicine 07/05/19 In Home Caregiver Relationship Specialty Start Date End Date Frieda Forrest PA-C [address] [place] [address] PCP - General Internal Medicine 07/05/19 In Home Caregiver Relationship Specialty Start Date End Date Frieda Forrest PA-C [address] [place] [address] PCP - General Internal Medicine 07/05/19 In Home Caregiver Relationship Specialty Start Date End Date JusticemtlucyFrieda PA-C [address] [place] [address], [place] [address] PCP - General Internal Medicine 07/05/19 In Home Caregiver Relationship Specialty Start Date End Date JusticemtFrieda ayala PA-C [address] [place] [address], [place] [address] PCP - General Internal Medicine 07/05/19 In Home Caregiver Relationship Specialty Start Date End Date JusticemtFrieda ayala PA-C [address] [place] [address], [place] [address] PCP - General Internal Medicine 07/05/19 In Home Caregiver Relationship Specialty Start Date End Date JusticemtFrieda ayala PA-C [address] [place] [address], [place] [address] PCP - General Internal Medicine 07/05/19 In Home Caregiver Relationship Specialty Start Date End Date Frieda Forrest PA-C [address] [place] [address], [place] [address] PCP - General Internal Medicine 07/05/19 In Home Caregiver Relationship Specialty Start Date End Date JusticemtFrieda ayala PA-C [address] [place] [address], [place] [address] PCP - General Internal Medicine 07/05/19 In Home Caregiver Relationship Specialty Start Date End Date JusticemtFrieda ayala PA-C [address] [place] [address], [place] [address] PCP - General Internal Medicine 07/05/19 Team Status: Active Member Role Status Dates Frieda Forrest PA-C Primary Care Provider Active Team Status: Inactive Member Role Status Dates Frieda Forrest PA-C Primary Care Provider Active Sanjuana Allison NP-C Attending Provider Active Team Status: Inactive Member Role Status Dates Frieda Forrest PA-C Primary Care Provider Active Negro Scanlon MD Attending Provider Active (unrecognized sect ion and content) No Status Records FoundNo Status Records FoundNo Status Records FoundNo Status Records Found INFORMATION SOURCE (unrecogn ized section and content) DATE CREATED AUTHOR 05/19/2022 [facility] DATE CREATED AUTHOR AUTHOR'S ORGANIZ ATION 09/03/2023 [facility] DATE CREATED AUTHOR AUTHOR'S ORGANIZ ATION 11/19/2023 [facility] DATE CREATED AUTHOR AUTHOR'S ORGANIZ ATION 12/06/2023 [facility] Goals (unrecognized section and content) Goals [...] BE BASED ON THE PRIMARY CLINICAL RECORDS. [employer] provides no warranty or guarantee of the accuracy or completeness of information in this document.
[2023-12-15] MEDS: LACTATED RINGER'S SOLUTION 1,000 ML 50 ML IV (08:02)
[2023-12-15] MEDS: SCOPOLAMINE 1 MG/3 DAYS TRANSDERM PATCH 1 PATCH TD (09:12)
[2023-12-15] MEDS: CEFAZOLIN SODIUM/DEXTROSE,ISO 1 GM/50 ML IV.SOLN IV (09:20)
[2023-12-15] MEDS: IOHEXOL 300 MG/ML - 50 ML BTL INJ (10:38)
--- NOTE | 2023-12-15 10:58 | P.URON_ITS ---
Urology Surgery Operative Note Operative Note Procedure Date: 12/15/23 Time Out Performed: yes Pre-op Diagnosis: Right renal calculi; status post stent Post-op Diagnosis: same as pre-op Procedures performed: 1. Cystoscopy. 2. Right stent changed to 6 Jordanian variable length. 3. Urethral meatal dilation with Hematite sounds to 26 Jordanian. 4. Right rigid ureteral dilation. 5. Right ureteroscopy. 6. Right pyeloscopy. 7. Thulium laser lithotripsy of right renal calculi. Anesthesia: General-LMA Primary Surgeon: Negro Scanlon Complications: None Estimated blood loss (mL): 10 Findings: 1. Mildly encrusted stent. 2. 1 large right renal calculus approximately 2 cm. Second right renal calculus approximately 6 mm. Specimens: None Drains: 6 Jordanian variable length right ureteral stent Indications for Procedures: This gentleman has right renal calculi for which she has been stented. He also underwent cystolitholapaxy and right ureteroscopy a few weeks ago. He now presents for ureteroscopic laser lithotripsy of his right renal calculi along with possible stent change or removal. He has signed an informed consent for these procedures after risks were explained. Detailed description of Procedure: The patient was brought to the operating room and placed on the operating room table in the supine position. SCDs were placed on the lower extremities and turned on and functioning during the entire case. Timeout was done by all parties in the room. We all agreed upon the patient's identification and the planned procedures for this patient. Genn. anesthesia was then administered. The patient was then repositioned into the modified dorsal lithotomy position. All pressure points were satisfactorily padded. Genitalia were sterilely prepped and draped in usual fashion. I started by attempting to pass a 22 Jordanian Olympus cystoscope per urethra and into the bladder. I was unable due to significant meatal stenosis. I then used Violeta sounds and dilated him from 22 Jordanian up to 26 Jordanian. I then passed the scope. The stent was mildly encrusted. A flexible grasping forceps was used to grasp the stent and bring it out. The curl of the stent within the kidney must have been encrusted also and it was initially difficult to get the stent out. Eventually I did. The scope was passed back in and a wire was passed back up into the kidney. The 8 rigid dilator was used to dilate the distal ureter. The scope was then removed. I then passed an 10/10 navigator ureteral access sheath over the wire and up the right ureter. The sheath got up to the L5 level. The wire and stylette were then removed. I then passed a flexible ureteroscope through the access sheath, into the ureter and up into the kidney. With fluoroscopy I could see 2 stones. 1 was the large 1 in the extreme lower pole calyx and the other was the smaller one also in the lower pole adjacent calyx. I was able to evaluate all the calyces. There was quite a bit of debris within the kidney this was inflammatory. There were some blood clots. There were no tumors. Was able to get to the smaller stone. A 200 ? laser fiber was passed through the scope. The fiber was in contact with the stone and we began doing lithotripsy at 10 W continuously on the dusting mode. This actually took quite a bit of energy to dust the small stone. I then was able to moved to the extreme lowest calyx where the large stone was. I similarly dusted the stone but had to go to 15 W. We achieved 100% dusting of both stones. The was then removed. A wire was passed back through the sheath into the kidney and the sheath was removed. I then backloaded the cystoscope over the wire and passed it into the bladder. I then slid an open-ended 6 Jordanian ureteral catheter over the wire and up into the kidney. The wire was removed and I then did a retrograde pyelogram to illuminate the kidney and proximal ureter. The wire was passed back up and the catheter was removed. I then slid a 6 Jordanian variable length stent over the wire up into the renal pelvis and remove the wire. There were good curls in the pelvis and in the bladder. The bladder was drained of its contents and the scope was removed. He was then transferred to a [facility] bed and was PACU in stable condition.
[2023-12-15] MEDS: SOLIFENACIN SUCCINATE 10 MG TABLET PO (11:37)
[2023-12-15] MEDS: PHENAZOPYRIDINE 100 MG TABLET 200 MG PO (11:45)
== END 2023-12-15 12:19 | disposition home or self-care (01) ==
PROVIDERS: Visit Provider Urology
PROC: (CPT 918; principal; 2023-12-15 09:05)
DX: N20.0 Calculus of kidney (principal); E11.9 Type 2 diabetes mellitus without complications; F32.A Depression, unspecified; Z87.442 Personal history of urinary calculi; Z87.891 Personal history of nicotine dependence; E78.2 Mixed hyperlipidemia; G47.33 Obstructive sleep apnea (adult) (pediatric); R31.21 Asymptomatic microscopic hematuria; N28.1 Cyst of kidney, acquired
CPT/HCPCS: 52356; 36415; 74420; J0690; J1100; J1885; J2250; J2405; J2704; J3010; Q9967